=== PATIENT | female | born 1955 | race Caucasian/White ===

== ENCOUNTER 2017-11-26 15:58 | Emergency (ER) | payer MEDICAID, SELFPAY ==
[2017-11-26 16:01] VITALS: BP 117/60; PULSE 64; RESP 16; TEMP 36.5; O2SAT 96
--- NOTE | 2017-11-26 16:29 | DI.RPTCT_ITS ---
SYMPTOM/DIAGNOSIS: LEFT SIDED HEAD INJURY NONCONTRAST HEAD CT: Comparison is made with 29 Apr 2013. No intracranial hemorrhage or skull fracture is seen. The sinuses and mastoid air cells appear clear where visualized. The ventricles are normal in size. IMPRESSION: Negative head CT
--- NOTE | 2017-11-26 16:35 | ED.GENADUL_ITS ---
Disposition Clinical Impression: Forehead contusion, Mild concussion Disposition: HOME Condition: Improving Instructions: Concussion (ED), Contusion in Adults (ED) Additional Instructions: Return to the emergency department immediately for any new or worsening symptoms including severe persistent nausea vomiting, severe change in pain, any neurological changes that you notice. Otherwise rest over the next 2-3 days and slowly advance activity as tolerated. If not improving follow-up with your primary care provider for reassessment in the next 1-2 weeks. For pain control you may continue to use [id number] acetaminophen just take as directed on packaging. Prescriptions: Ondansetron [Ondansetron Odt] 4 mg PO Q8H PRN #12 tab.rapdis PRN Reason: Nausea Referrals: Padilla Polk [Primary Care Provider] - (Follow-up with your primary care provider if not improving over the next 1-2 weeks.) Medical Decision Making - Radiology Data Radiology results: report reviewed, image reviewed - Medical Decision Making Patient presenting to the emergency department status post fall with head injury 1 day ago and having persistent headache and nausea along with feeling off in her head . Patient does have a moderate contusion to the left forehead with abrasion and generalized tenderness to the area surrounding it including the zoroastrianism. Most area of pain is over contusion. Physical exam and neurological exam is otherwise unremarkable and no focal neurological deficits is noted. Given patient's symptoms I am concerned for possible intracranial bleed but feel more likely patient's symptoms may be consistent with mild concussion and forehead contusion. Plan to do CT imaging to rule out intracranial abnormality and pending results patient given acetaminophen and Zofran for symptoms. Head CT and radiologist report show no acute intracranial findings. Patient was reassessed and states complete resolution of nausea and only very minimal headache at this point. Given this I do feel that patient suffering from a mild concussion and forehead contusion. Patient was encouraged to continue to use acetaminophen given that this was beneficial for pain control along with a prescription for Zofran for nausea. Patient encouraged to return for worsening symptoms otherwise follow-up with her primary care provider for reassessment in the next 1-2 weeks if not improving. Patient encouraged to rest over the next 2 -3 days then advance activity as tolerated. After discussion of diagnosis and plan of care with patient patient agreed and stated no further needs, questions , or concerns at this time. History of Present Illness - General Chief complaint: HeadInjury Stated complaint: FALL/HEAD INJURY Time Seen by Provider: 11/26/17 16:29 Source: patient, RN notes reviewed Mode of arrival: ambulatory Limitations: no limitations - History of Present Illness Initial comments: Patient reports yesterday morning she she was working with her chickens and fell in the chicken coop striking the left side of her head fairly hard against a board. She states that she saw stars but denies loss of consciousness or amnesia. She does state that she has had a fairly substantial headache since this occurred and persistent nonrelenting nausea. She states that she feels off in her head and given that her symptoms have not improved she is presenting for evaluation. Onset/Timin -: days(s) - Related Data Omeprazole 20 mg PO PRN PRN 08/19/12 Fish Oil 1 tab PO DAILY 05/18/14 Multivitamin [Multi-Vitamin Daily] 1 each PO DAILY 05/18/14 Ondansetron [Ondansetron Odt] 4 mg PO Q8H PRN #12 tab.rapdis 11/26/17 Allergies Allergy/AdvReac Type Severity Reaction Status Date / Time No Known Allergies Allergy Unverified 05/31/15 05:17 Review of Systems Constitutional: malaise. denies: chills Eyes: denies: vision change Respiratory: no symptoms reported. denies: cough, shortness of breath Cardiovascular: denies: chest pain, palpitations Gastrointestinal: nausea. denies: abdominal pain, vomiting Genitourinary: denies: dysuria Musculoskeletal: denies: back pain Neurological: headache. denies: weakness, numbness, paresthesias, confusion, vertigo Past Medical History - Past Medical History Medical history: GERD tinnitus, endometriosis Surgical history: cholecystectomy Family history: cancer - Social History Smoking status: never smoker Alcohol use: none Drug use: none Living Situation: lives with family General Exam - General Limitations: no limitations General appearance: alert, in no apparent distress - Expanded Head Exam No standard instances Head exam: Present: abrasion (To left forehead), contusion (Left forehead), tenderness of temporal artery (Left side). Absent: hematoma, racoon eyes, ocasio's sign, CSF rhinorrhea, CSF otorrhea - Eye Eye exam: Present: normal apperance, PERRL, EOMI. Absent: scleral icterus, conjunctival injection, nystagmus, periorbital swelling, periorbital tenderness Pupils: Present: normal accommodation - ENT ENT exam: Present: normal exam, normal orophraynx, mucous membranes moist, TM's normal bilaterally, normal external ear exam - Neck Neck exam: Present: normal inspection, full ROM. Absent: tenderness - Respiratory Respiratory exam: Present: normal lung sounds bilaterally. Absent: respiratory distress, wheezes, rales, rhonchi, stridor - Cardiovascular Cardiovascular Exam: Present: regular rate, normal rhythm, normal heart sounds - Neurological Exam Neurological exam: Present: alert, oriented X3, CN II-XII intact, normal gait. Absent: altered, motor sensory deficit - Expanded Neurological Exam No standard instances Neurological exam: Absent: ataxia Patient oriented to: Present: person, place, time Speech: Present: fluid speech Cerebellar function: Finger to Nose: Normal Sensory exam: Upper Extremity Light Touch: Normal, Upper Extremity Temperature: Normal, UE 2 Point Discrimination: Normal, Lower Extremity Light Touch: Normal, Lower Extremity Temperature: Normal, LE 2 Point Discrimination: Normal Motor strength exam: RUE: (5), LUE: (5), RLE: (5), LLE: (5) Best Eye Response (Robby): (4) open spontaneously Best Motor Response (Robby): (6) obeys commands Best Verbal Response (Ryan): (5) oriented - Skin Skin exam: Present: warm, dry Course Vital Signs - 24 hr 11/26/17 16:01 Temperature 36.5 C Pulse 64 Respiratory 16 Rate Blood Pressure 117/60 Pulse Oximetry 96
[2017-11-26] MEDS: Acetaminophen 325 MG TAB 650 MG PO (17:20)
[2017-11-26] MEDS: Ondansetron O.D.T. 4 MG TABEF PO (17:20)
--- NOTE | 2017-11-26 17:25 | DI.VRAD_ITS ---
EXAM: CT Head Without Intravenous Contrast EXAM DATE/TIME: 11/26/2017 4:30 PM CLINICAL HISTORY: 62 years old, female; Injury or trauma; Injury history: Blunt injury to left side of head; Initial encounter; Blunt trauma (contusions or hematomas); Patient HX: Left-sided head injury TECHNIQUE: Axial computed tomography images of the head/brain without intravenous contrast. Coronal and sagittal reformatted images were created and reviewed. COMPARISON: CT - HEAD WITHOUT CONTRAST 2013-04-29 17:14 FINDINGS: Brain: Normal. No hemorrhage. No significant white matter disease. No edema. Ventricles: Normal. No ventriculomegaly. Bones/joints: Normal. No acute fracture. Sinuses: Normal as visualized. No acute sinusitis. Mastoid air cells: Normal as visualized. No mastoid effusion. Soft tissues: Normal. IMPRESSION: No acute intracranial findings are detected. Dictated and Authenticated by: Bret Caputo MD. Ordering:SHANTELL RG MD
[2017-11-26 17:49] VITALS: BP 135/75; PULSE 57; RESP 16; O2SAT 97
[2017-11-26 17:51] VITALS: BP 135/75; PULSE 57; RESP 16; O2SAT 97
== END 2017-11-26 17:51 | disposition home or self-care (01) ==
PROVIDERS: Emergency Provider Student in an Organized Health Care Education/Training Program; PCP Family Medicine
DX: S00.83XA Contusion of other part of head, initial encounter (principal); S06.0X0A Concussion without loss of consciousness, initial encounter; W01.198A Fall on same level from slipping, tripping and stumbling with subsequent striking against other object, initial encounter; Y92.72 Chicken coop as the place of occurrence of the external cause; R11.0 Nausea; R40.2412 Glasgow coma scale score 13-15, at arrival to emergency department
CPT/HCPCS: 99284; 70450

== ENCOUNTER 2018-03-01 13:08 | Emergency (ER) | payer MEDICAID, SELFPAY ==
[2018-03-01 13:22] VITALS: BP 127/60; PULSE 80; RESP 16; TEMP 36.8; O2SAT 97
--- NOTE | 2018-03-01 14:08 | W.ED.GENAD ---
Discharge Plan Disposition Patient Disposition: HOME Condition: Good Discharge Details Chief Complaint: Orthopedic Clinical Impression: Contusion of left leg Primary Care Provider: Padilla Polk ED Provider: Edd Jean Home Meds and New Rx's Prescriptions: No Action multivitamin [Daily Multi-Vitamin] 1 EACH tablet 1 ea PO DAILY RF: 0 FISH OIL 1 tab PO DAILY RF: 0 omeprazole 20 MG capsule,delayed release(DR/EC) 20 mg PO PRN PRN (Reason: Heartburn) RF: 0 ondansetron 4 MG tablet,disintegrating 4 mg PO Q8H PRN (Reason: Nausea) Qty: 12 RF: 0 Discharge Instructions Instructions: Contusion in Adults (ED) Referrals: [facility] Emergency Dept. [Outside] - Return if symptoms worsen Discharge Data Discharge Date/Time-TO BE ENTERED AT DEPARTURE: 03/01/18 14:48 Medical Decision Making Plan to medicate with Ibuprofen, x-ray left tib/fib, ankle, and foot. Apprised of normal x-rays. Advised ice and elevate. Return to pcp as planned, back to ED if symptoms worsen. Imaging Data Radiologic Study: Imaging: X-Ray My impression: No fracture. Radiologist's impression: LEFT FOOT: Three views were obtained. No fracture is seen. Note is made of osteophytes of plantar fascia attachment and Achilles insertion on the calcaneus. LEFT ANKLE: Three views were obtained. The ankle mortise appears well maintained. No fracture identified. LEFT LEG: Two views were obtained. No fracture is seen. LEFT FOOT: Three views were obtained. No fracture is seen. Note is made of osteophytes of plantar fascia attachment and Achilles insertion on the calcaneus. LEFT ANKLE: Three views were obtained. The ankle mortise appears well maintained. No fracture identified. LEFT LEG: Two views were obtained. No fracture is seen. HPI General Date/Time Provider Initiated Documentation: 03/01/18 13:22. Limitations to Documentation: no limitations. Information obtained by: patient. History of Present Illness 62 year old F presents to the emergency department with the chief complaint of leg pain, HPI Narrative: 62 y/o female here with c/o left lower leg pain. A week ago she fell between two boards in her barn. The boards compressed her lower leg on the sides. She noticed bruising anterior lower leg. She thought she was improving till yesterday. Yesterday she went for a walk and the pain worsened. C/O pain to lower left leg, ankle and heel of foot. Related Data Home Medications Medication Instructions Recorded Confirmed omeprazole 20 mg PO PRN PRN 08/19/12 11/26/17 Fish Oil 1 tab PO DAILY 05/18/14 11/26/17 multivitamin [Daily Multi-Vitamin] 1 ea PO DAILY 05/18/14 11/26/17 ondansetron 4 mg PO Q8H PRN #12 tab.rapdis 11/26/17 Previous Rx's Medication Instructions Recorded ondansetron 4 mg PO Q8H PRN #12 tab.rapdis 11/26/17 Allergies Allergy/AdvReac Type Severity Reaction Status Date / Time No Known Allergies Allergy Unverified 03/01/18 13:24 General Stated Complaint: Orthopedic KIET: 4 Review of Systems Musculoskeletal Comments: left lower leg pain PFSH Family History Other Personal history of malignant neoplasm Medical History GERD (gastroesophageal reflux disease) Social History Smoking/Tobacco Use Status: Never Surgical History Cholecystectomy Colonoscopy - MAC Dilation and curettage EGD - MAC Endometrial Ablation Ligation of fallopian tube Exam Const General: cooperative, healthy appearing, comfortable and no acute distress Nutritional Appearance: average body habitus Orientation: alert, awake and oriented x3 Extrem General: full ROM and normal capillary refill Left lower extremity: full ROM, normal capillary refill, knee Details: normal to inspection; no tenderness and lower leg Details: tenderness (with bruising to anterior lower left leg. ) Location: of the midshaft tibia, of the midshaft fibula, of the distal tibia and of the distal fibula; not of the posterior calf, not of the proximal tibia and not of the proximal fibula Ankle/foot/toe images: 1. Bruising to anterior leg. Tender to lower tib/fib 2. tender to the heal Course Vital Signs Temperature 36.8 C 03/01/18 13:22 Pulse 80 03/01/18 13:22 Respiratory Rate 16 03/01/18 13:22 Blood Pressure 127/60 03/01/18 13:22 Pulse Oximetry 97 03/01/18 13:22 Temperature 36.8 C 03/01/18 13:22 Temperature Source Temporal Artery Scan 03/01/18 13:22 Pulse 80 03/01/18 13:22 Respiratory Rate 16 03/01/18 13:22 Blood Pressure 127/60 03/01/18 13:22 Blood Pressure Position Sitting 03/01/18 13:22 Pulse Oximetry 97 03/01/18 13:22 Oxygen Delivery Method Room Air 03/01/18 13:22 Oxygen Flow Rate 0 03/01/18 13:22 Pain Level 8 03/01/18 13:22
--- NOTE | 2018-03-01 14:11 | ED.GENADUL_ITS ---
Discharge Plan Disposition Patient Disposition: HOME Condition: Good Discharge Details Chief Complaint: Orthopedic Clinical Impression: Contusion of left leg Primary Care Provider: Padilla Polk ED Provider: Edd Jean Home Meds and New Rx's Prescriptions: No Action multivitamin [Daily Multi-Vitamin] 1 EACH tablet 1 ea PO DAILY RF: 0 FISH OIL 1 tab PO DAILY RF: 0 omeprazole 20 MG capsule,delayed release(DR/EC) 20 mg PO PRN PRN (Reason: Heartburn) RF: 0 ondansetron 4 MG tablet,disintegrating 4 mg PO Q8H PRN (Reason: Nausea) Qty: 12 RF: 0 Discharge Instructions Instructions: Contusion in Adults (ED) Referrals: [facility] Emergency Dept. [Outside] - Return if symptoms worsen Discharge Data Discharge Date/Time-TO BE ENTERED AT DEPARTURE: 03/01/18 14:48 Medical Decision Making Plan to medicate with Ibuprofen, x-ray left tib/fib, ankle, and foot. Apprised of normal x-rays. Advised ice and elevate. Return to pcp as planned, back to ED if symptoms worsen. Imaging Data Radiologic Study: Imaging: X-Ray My impression: No fracture. Radiologist's impression: LEFT FOOT: Three views were obtained. No fracture is seen. Note is made of osteophytes of plantar fascia attachment and Achilles insertion on the calcaneus. LEFT ANKLE: Three views were obtained. The ankle mortise appears well maintained. No fracture identified. LEFT LEG: Two views were obtained. No fracture is seen. LEFT FOOT: Three views were obtained. No fracture is seen. Note is made of osteophytes of plantar fascia attachment and Achilles insertion on the calcaneus. LEFT ANKLE: Three views were obtained. The ankle mortise appears well maintained. No fracture identified. LEFT LEG: Two views were obtained. No fracture is seen. HPI General Date/Time Provider Initiated Documentation: 03/01/18 13:22 . Limitations to Documentation: no limitations . Information obtained by: patient . History of Present Illness 62 year old F presents to the emergency department with the chief complaint of leg pain, HPI Narrative: 62 y/o female here with c/o left lower leg pain. A week ago she fell between two boards in her barn. The boards compressed her lower leg on the sides. She noticed bruising anterior lower leg. She thought she was improving till yesterday. Yesterday she went for a walk and the pain worsened. C/O pain to lower left leg, ankle and heel of foot. Related Data Home Medications Medication Instructions Recorded Confirmed omeprazole 20 mg PO PRN PRN 08/19/12 11/26/17 Fish Oil 1 tab PO DAILY 05/18/14 11/26/17 multivitamin [Daily Multi-Vitamin] 1 ea PO DAILY 05/18/14 11/26/17 ondansetron 4 mg PO Q8H PRN #12 tab.rapdis 11/26/17 Previous Rx's Medication Instructions Recorded ondansetron 4 mg PO Q8H PRN #12 tab.rapdis 11/26/17 Allergies Allergy/AdvReac Type Severity Reaction Status Date / Time No Known Allergies Allergy Unverified 03/01/18 13:24 General Stated Complaint: Orthopedic KIET: 4 Review of Systems Musculoskeletal Comments: left lower leg pain PFSH Family History Other Personal history of malignant neoplasm Medical History GERD (gastroesophageal reflux disease) Social History Smoking/Tobacco Use Status: Never Surgical History Cholecystectomy Colonoscopy - MAC Dilation and curettage EGD - MAC Endometrial Ablation Ligation of fallopian tube Exam Const General: cooperative, healthy appearing, comfortable and no acute distress Nutritional Appearance: average body habitus Orientation: alert, awake and oriented x3 Extrem General: full ROM and normal capillary refill Left lower extremity: full ROM, normal capillary refill, knee Details: normal to inspection; no tenderness and lower leg Details: tenderness (with bruising to anterior lower left leg. ) Location: of the midshaft tibia, of the midshaft fibula, of the distal tibia and of the distal fibula; not of the posterior calf , not of the proximal tibia and not of the proximal fibula Ankle/foot/toe images: 2 1. Bruising to anterior leg. Tender to lower tib/fib 2. tender to the heal Course Vital Signs Temperature 36.8 C 03/01/18 13:22 Pulse 80 03/01/18 13:22 Respiratory Rate 16 03/01/18 13:22 Blood Pressure 127/60 03/01/18 13:22 Pulse Oximetry 97 03/01/18 13:22 Temperature 36.8 C 03/01/18 13:22 Temperature Source Temporal Artery Scan 03/01/18 13:22 Pulse 80 03/01/18 13:22 Respiratory Rate 16 03/01/18 13:22 Blood Pressure 127/60 03/01/18 13:22 Blood Pressure Position Sitting 03/01/18 13:22 Pulse Oximetry 97 03/01/18 13:22 Oxygen Delivery Method Room Air 03/01/18 13:22 Oxygen Flow Rate 0 03/01/18 13:22 Pain Level 8 03/01/18 13:22
[2018-03-01] MEDS: Ibuprofen 800 MG TAB PO (14:20)
--- NOTE | 2018-03-01 14:35 | DI.RAD_ITS ---
SYMPTOMS/DIAGNOSIS: FALL BETWEEN TWO BOARDS, PAIN ANTERIOR AND DISTAL AND HEEL PAIN LEFT FOOT: Three views were obtained. No fracture is seen. Note is made of osteophytes of plantar fascia attachment and Achilles insertion on the calcaneus. LEFT ANKLE: Three views were obtained. The ankle mortise appears well maintained. No fracture identified. LEFT LEG: Two views were obtained. No fracture is seen.
== END 2018-03-01 14:48 | disposition home or self-care (01) ==
PROVIDERS: Emergency Provider Nurse Practitioner Family; PCP Family Medicine
DX: S80.12XA Contusion of left lower leg, initial encounter (principal); W23.1XXA Caught, crushed, jammed, or pinched between stationary objects, initial encounter
CPT/HCPCS: 99283; 73590; 73610; 73630; 99282

== ENCOUNTER 2018-04-12 09:05 | Emergency (ER) | payer MEDICAID, SELFPAY ==
[2018-04-12] VITALS (25 sets, daily range): BP systolic 124–140; BP diastolic 57–77; PULSE 57–64; RESP 16; TEMP 36.5; O2SAT 97–100
--- NOTE | 2018-04-12 09:46 | DI.CT_ITS ---
SYMPTOMS/DIAGNOSIS: ABD PAIN CT OF THE ABDOMEN AND PELVIS: Comparison is made with [id number]. Images were performed from the lung bases through the ischial tuberosities after IV and without oral contrast. The lung bases are clear. The patient is status post cholecystectomy. The liver, spleen, pancreas, kidneys and adrenals appear normal. The bladder, uterus and ovaries are unremarkable. There are bilateral tubal ligation clips. There is no bowel dilatation or inflammatory change. The appendix appears normal. There is a moderate quantity of stool. Degenerative disc changes are seen at L 4 - 5. There is a tiny umbilical hernia containing fat. IMPRESSION: No acute abnormality.
--- NOTE | 2018-04-12 10:51 | ED.GENADUL_ITS ---
Discharge Plan Disposition Patient Disposition: HOME Condition: Stable Discharge Details Chief Complaint: Abd Prob Clinical Impression: Abdominal pain Primary Care Provider: Padilla Polk ED Provider: Nuha Chen Home Meds and New Rx's Prescriptions: New lidocaine [Lidoderm] 5 % adhesive patch,medicated 1 patch TP DAILY Qty: 15 RF: 0 Continued multivitamin [Daily Multi-Vitamin] 1 EACH tablet 1 ea PO DAILY RF: 0 FISH OIL 1 tab PO DAILY RF: 0 omeprazole 20 MG capsule,delayed release(DR/EC) 20 mg PO PRN PRN (Reason: Heartburn) RF: 0 ondansetron 4 MG tablet,disintegrating 4 mg PO Q8H PRN (Reason: Nausea) Qty: 12 RF: 0 aspirin [Aspirin Childrens] 81 mg Tablet,Chewable RF: 0 Discharge Instructions Instructions: Muscle Strain (ED), Abdominal Pain (ED) Additional Instructions: Please return immediately to the emergency department if you develop any new or worsening symptoms or if you become otherwise concerned. It is extremely important that you make an appointment to be seen by your primary care doctor within the next 48 hours and follow-up for this visit. Referrals: Padilla Polk [Primary Care Provider] - Discharge Data Discharge Date/Time-TO BE ENTERED AT DEPARTURE: 04/12/18 15:43 Medical Decision Making Anette Rivers is a 62 y/o woman with h/o GERD presenting to the emergency department with constant abdominal pain associated with mild constipation since pushing a bale of hay with her back. On exam Pt is well and non-toxic appearing, there is mild-mod focal TTP of the epigastric region without peritoneal signs. Concern for likely abdominal wall muscle strain, less likely other intra- abdominal process. Very low suspicion for ACS, will send tropx1 given constant pain. Exam/hx not c/w PE, acute aortic pathology, infectious process, pulmonary etiology. Plan for EKG, screening labs, CT a/p. Pt decling pain medication at this time. CT negative per radiology. EKG, labs okay. Plan for lidoderm patch, muscle rest. Lengthy discussion with Pt re: RTED precautions and importance of outpt f/u with PCP. Pt is amenable to the plan. Medical Records Medical records reviewed: Yes I reviewed the patient's medical records. Imaging Data Radiologic Study: Attestation: I personally reviewed and interpreted this imaging study as follows: Radiologist's impression: CT OF THE ABDOMEN AND PELVIS: Comparison is made with [id number]. Images were performed from the lung bases through the ischial tuberosities after IV and without oral contrast. The lung bases are clear. The patient is status post cholecystectomy. The liver, spleen, pancreas, kidneys and adrenals appear normal. The bladder, uterus and ovaries are unremarkable. There are bilateral tubal ligation clips. There is no bowel dilatation or inflammatory change. The appendix appears normal. There is a moderate quantity of stool. Degenerative disc changes are seen at L 4 - 5. There is a tiny umbilical hernia containing fat. IMPRESSION: No acute abnormality. Lab Data Lab results reviewed: Yes I reviewed the patient's lab results. Laboratory Tests Range/Units 04/12/18 04/12/18 04/12/18 10:38 10:38 10:38 WBC (4.4-10.8) k/cumm 4.89 RBC (4.00-5.20) m/cumm 5.46 H Hgb (12.0-15.5) g/dL 16.0 H Hct (36.0-46.0) % 47.8 H MCV (80-95) fL 87.5 MCH (27.0-33.0) pg 29.3 MCHC (32.0-36.0) g/dL 33.5 RDW (11.7-14.6) % 13.0 Plt Count (130-400) x1000/uL 201 MPV (8.0-11.0) fL 10.0 Immature Gran % 0.2 Neutrophils % 46.9 Lymphocytes % 41.3 Monocytes % 5.1 Eosinophils % 5.1 Basophils % 1.4 Absolute Neutrophils (1.2-6.7) k/cumm 2.29 Absolute Lymphocytes (1.2-3.4) k/cumm 2.02 Absolute Monocytes (0.11-0.7) k/cumm 0.25 Absolute Eosinophils (0.0-0.7) k/cumm 0.25 Absolute Basophils (0.0-0.2) k/cumm 0.07 Sodium (136-145) mmol/L 143 Potassium (3.5-5.1) mmol/L 4.4 Chloride (98-107) mmol/L 106 Carbon Dioxide (21.0-32.0) mmol/L 29.7 Anion Gap (3-11) mmol/L 7.3 BUN (7-18) mg/dL 17 Creatinine (0.55-1.02) mg/dL 0.89 Estimated GFR/1.73 m2 (mL/min/1.73m2) >= 60.00 Glucose (70-100) mg/dL 93 Calcium (8.5-10.1) mg/dL 9.6 Total Bilirubin (0.2-1.0) mg/dL 0.5 AST (15-37) U/L 36 ALT (12-78) U/L 84 H Alkaline Phosphatase (46-116) U/L 131 H Troponin I (0.00-0.06) ng/mL < 0.02 Total Protein (6.4-8.2) g/dL 7.0 Albumin (3.4-5.0) g/dL 3.6 Urine Color (Yellow) Urine Clarity Urine pH (5-8) Ur Specific [place] (1.005-1.025) Urine Protein (Negative) mg/dL Urine Ketones (Negative) mg/dL Urine Blood (Negative) Urine Nitrite (Negative) Urine Bilirubin (Negative) Urine Urobilinogen (Up TO 0.2) EU/dL Ur Leukocyte Esterase (Negative) Urine Glucose (Negative) mg/dL Range/Units 04/12/18 12:39 WBC (4.4-10.8) k/cumm RBC (4.00-5.20) m/cumm Hgb (12.0-15.5) g/dL Hct (36.0-46.0) % MCV (80-95) fL MCH (27.0-33.0) pg MCHC (32.0-36.0) g/dL RDW (11.7-14.6) % Plt Count (130-400) x1000/uL MPV (8.0-11.0) fL Immature Gran % Neutrophils % Lymphocytes % Monocytes % Eosinophils % Basophils % Absolute Neutrophils (1.2-6.7) k/cumm Absolute Lymphocytes (1.2-3.4) k/cumm Absolute Monocytes (0.11-0.7) k/cumm Absolute Eosinophils (0.0-0.7) k/cumm Absolute Basophils (0.0-0.2) k/cumm Sodium (136-145) mmol/L Potassium (3.5-5.1) mmol/L Chloride (98-107) mmol/L Carbon Dioxide (21.0-32.0) mmol/L Anion Gap (3-11) mmol/L BUN (7-18) mg/dL Creatinine (0.55-1.02) mg/dL Estimated GFR/1.73 m2 (mL/min/1.73m2) Glucose (70-100) mg/dL Calcium (8.5-10.1) mg/dL Total Bilirubin (0.2-1.0) mg/dL AST (15-37) U/L ALT (12-78) U/L Alkaline Phosphatase (46-116) U/L Troponin I (0.00-0.06) ng/mL Total Protein (6.4-8.2) g/dL Albumin (3.4-5.0) g/dL Urine Color (Yellow) Yellow Urine Clarity Clear Urine pH (5-8) 7.5 Ur Specific [place] (1.005-1.025) 1.010 Urine Protein (Negative) mg/dL Negative Urine Ketones (Negative) mg/dL Negative Urine Blood (Negative) Negative Urine Nitrite (Negative) Negative Urine Bilirubin (Negative) Negative Urine Urobilinogen (Up TO 0.2) EU/dL 0.2 Ur Leukocyte Esterase (Negative) Negative Urine Glucose (Negative) mg/dL Negative ECG Data Attestation: I personally reviewed and interpreted this ECG (s) as follows: Interpretation: EKG shows sinus bradycardia at 57 with normal axis, no acute ischemic changes, nondiagnostic EKG HPI General Mode of arrival: ambulatory . Date/Time Provider Initiated Documentation: 04/12/18 09:44 . Limitations to Documentation: no limitations . Information obtained by: patient, RN notes reviewed and old records reviewed . HPI Narrative: Anette Rivers is a 62 y/o woman with h/o GERD presenting to the emergency department with abdominal pain. Pt reports that on 04/06 she was pushng a bale hay with her back while standing. When she arched her back to push, she felt sudden sharp pain in her upper abdomen. Pt reports that she has had continued upper abdominal pain since that time, has never resolved. Pain is worse with changing position or with taking a deep breath. Non-exertional, does not radiate. Has not changed in quality, location, or severity since initial onset. Pt also reports that feels more constipated than usual since the pain started, but has continued to have regular BMs, with last BM today. She denies any other pain, n/v, SOB, cough, fever, n/t, weakness. Has been eating and drinking as usual. No recent travel. Related Data Home Medications Medication Instructions Recorded Confirmed omeprazole 20 mg PO PRN PRN 08/19/12 11/26/17 Fish Oil 1 tab PO DAILY 05/18/14 11/26/17 multivitamin [Daily Multi-Vitamin] 1 ea PO DAILY 05/18/14 11/26/17 ondansetron 4 mg PO Q8H PRN #12 tab.rapdis 11/26/17 aspirin [Aspirin Childrens] 04/12/18 lidocaine [Lidoderm] 1 patch TP DAILY #15 each 04/12/18 Previous Rx's Medication Instructions Recorded ondansetron 4 mg PO Q8H PRN #12 tab.rapdis 11/26/17 lidocaine [Lidoderm] 1 patch TP DAILY #15 each 04/12/18 Allergies Allergy/AdvReac Type Severity Reaction Status Date / Time No Known Allergies Allergy Unverified 03/01/18 13:24 General Stated Complaint: Abd Prob KIET: 3 Review of Systems Review of Systems Constitutional: denies fevers Eyes: denies eye pain ENT: denies facial pain, dental pain, sore throat Cardiovascular: denies chest pain, edema Respiratory: denies SOB, cough GI: denies vomiting, diarrhea, reports abdominal pain, constipation : denies flank pain MSK: denies back pain, neck pain, arthralgias, myalgias Skin: denies rash Neuro: denies headaches, weakness, n/t PFSH Medical History GERD (gastroesophageal reflux disease) Surgical History Cholecystectomy Colonoscopy - MAC Dilation and curettage EGD - MAC Endometrial Ablation Ligation of fallopian tube Family History Other Personal history of malignant neoplasm Social History Smoking/Tobacco Use Status: Never Exam Narrative Exam Narrative: Constitutional: well and [id number], pleasant, conversing normally HENT: head atraumatic, normocephalic normal inspection, mucous membranes moist Eyes: conjunctiva normal, sclera normal, pupils 3mm b/l Neck: no stridor, normal ROM, trachea midline Chest: normal inspection Resp: normal work of breathing, LCTAB Cardio: normal rate, normal rhythm, no murmur appreciated GI: abdomen soft, non-distended, mild TTP of the epigastric area without other TTP, no rebound or guarding, pain is worse when performing abdominal crunch Back: normal inspection, no rash Skin: warm, dry, normal color, no rash Neuro: alert, not altered, grossly non-focal, normal tone Ext: no edema Psych: normal mood, normal affect, normal behavior Course Vital Signs Temperature 36.5 C 04/12/18 09:11 Pulse 64 04/12/18 09:11 Respiratory Rate 16 04/12/18 09:11 Blood Pressure 130/64 04/12/18 09:11 Pulse Oximetry 100 04/12/18 09:11 Temperature 36.5 C 04/12/18 09:11 Temperature Source Temporal Artery Scan 04/12/18 09:11 Pulse 64 04/12/18 09:11 Respiratory Rate 16 04/12/18 09:11 Blood Pressure 130/64 04/12/18 09:11 Blood Pressure Position Sitting 04/12/18 09:11 Pulse Oximetry 100 04/12/18 09:11 Oxygen Delivery Method Room Air 04/12/18 09:11 Oxygen Flow Rate 0 04/12/18 09:11 Pain Level 6 04/12/18 09:11
[2018-04-12 10:53] LABS: Abs Immature Grans 0.01 k/cumm (0.0-0.09); Absolute Basophil Count 0.07 k/cumm (0.0-0.2); Absolute Eosinophil Count 0.25 k/cumm (0.0-0.7); Absolute Lymphocyte Count 2.02 k/cumm (1.2-3.4); Absolute Monocyte Count 0.25 k/cumm (0.11-0.7); Absolute Neutrophil Count 2.29 k/cumm (1.2-6.7); Basophils % 1.4; Eosinophils % 5.1; HCT 47.8 % (36.0-46.0); Immature Grans % 0.2; Lymphocytes % 41.3; Mean Corp. HGB Concentration 33.5 g/dL (32.0-36.0); Mean Corpuscular Hemoglobin 29.3 pg (27.0-33.0); Mean Corpuscular Volume 87.5 fL (80-95); Monocytes % 5.1; Neutrophils % 46.9; Platelet Count 201 x1000/uL (130-400); RBC 5.46 m/cumm (4.00-5.20); White Blood Cell Count 4.89 k/cumm (4.4-10.8)
[2018-04-12 11:07] LABS: ALT 84 U/L (12-78); AST 36 U/L (15-37); Albumin 3.6 g/dL (3.4-5.0); Alkaline Phosphatase 131 U/L (46-116); Anion Gap 7.3 mmol/L (3-11); BUN 17 mg/dL (7-18); Bilirubin, Total 0.5 mg/dL (0.2-1.0); CO2 29.7 mmol/L (21.0-32.0); CREATININE 0.89 mg/dL (0.55-1.02); Calcium 9.6 mg/dL (8.5-10.1); Chloride 106 mmol/L (98-107); Glucose 93 mg/dL (70-100); Potassium 4.4 mmol/L (3.5-5.1); Sodium 143 mmol/L (136-145)
[2018-04-12 11:09] LABS: Troponin I < 0.02 ng/mL (0.00-0.06)
[2018-04-12] MEDS: Omnipaque 350 MG/ML 100 ML BTL IJ (11:43)
--- NOTE | 2018-04-12 12:13 | NUR.NOTE ---
Is in no distress, awaiting dispo.
[2018-04-12 12:49] LABS: Bilirubin Negative (Negative); Blood Negative (Negative); Clarity Clear; Glucose Negative (Negative); Ketones Negative (Negative); Leukocyte Esterase Negative (Negative); Nitrite Negative (Negative); Urobilinogen 0.2 EU/dL (Up TO 0.2); pH 7.5 (5-8)
[2018-04-12] MEDS: Lidocaine 5% Patch 1 PATCH TP (13:33)
== END 2018-04-12 15:43 | disposition home or self-care (01) ==
PROVIDERS: Emergency Provider Student in an Organized Health Care Education/Training Program; PCP Family Medicine
DX: R10.9 Unspecified abdominal pain (principal); R00.1 Bradycardia, unspecified; Z98.51 Tubal ligation status; Z90.49 Acquired absence of other specified parts of digestive tract
CPT/HCPCS: 36415; 80053; 93005; 99285; 74177; 81003; 84484; 85025; 93010; J3490

== ENCOUNTER 2018-06-02 06:28 | Day surgery (SDC) | payer MEDICAID, SELFPAY ==
[2018-06-02] VITALS (7 sets, daily range): BP systolic 115–133; BP diastolic 59–70; PULSE 53–63; RESP 12–18; TEMP 35.6–36.6; O2SAT 98–100
--- NOTE | 2018-06-02 06:21 | HPE_ITS ---
Date of service: 06/02/18 Time of Service: 07:30 Assessment and Plan (1) Umbilical hernia: Current visit: No Status: Acute A\\ Small umbilical Hernia P\\ Open repair with/without mesh depending on size. Risks, benefits, complications of the procedure were reviewed with the patient. Complications include but are not limited to bleeding, pain, recurrence, injury to underlying bowel and adverse reaction to the medication. Questions were entertained and answered to her satisfaction and she wished to proceed. No guarantees were given or implied. Qualifiers: Obstruction and gangrene presence: without obstruction or gangrene Qualified Code(s): K42.9 - Umbilical hernia without obstruction or gangrene History of Present Illness Chief Complaint: umbilical hernia Narrative: Mrs. Rivers is a pleasant 62-year-old female who was seen in the emergency department [facility] for abdominal pain. Ms. Rivers states that they have quite a few animals and she was moving a round bale off of her pickup truck when she felt something give. She tried just taken Tylenol and ibuprofen but the pain consistently got worse until she went to the emergency department. She did have a CAT scan which showed a small umbilical hernia with some fat in it. No inguinal hernias were noted no other abnormalities were identified. Ms. Edwards does also have some chronic right upper quadrant pain along her cholecystectomy scar. She underwent a upper endoscopy as well as a colonoscopy in 2014 due to this pain. Her EGD showed some mild inflammation. Her colonoscopy was completely normal. She still has pain around that scar mostly when she does lifting. There have been no changes in her health since she was last seen in the office on 04/27/18. Review of Systems Constitutional Denies fever(s) Eyes Denies change in vision Cardiovascular Denies chest pain, Denies chest pain at rest, Denies irregular heart rhythm, Denies palpitations, Denies dyspnea and Denies dyspnea on exertion Respiratory Denies cough, Denies dyspnea and Denies dyspnea on exertion Gastrointestinal Reports as per HPI and Reports abdominal pain Endocrine Denies palpitations [facility] Medical History GERD (gastroesophageal reflux disease) Surgical History Cholecystectomy Colonoscopy - MAC (~2014) Dilation and curettage EGD - MAC (~2014) Endometrial Ablation Ligation of fallopian tube Family History Other Personal history of malignant neoplasm Social History Smoking and Tabacco status: Never alcohol intake: current alcohol intake frequency: holidays/special occasions only substance use type: does not use Meds Home Medications Medication Instructions Recorded Confirmed Type omeprazole 20 mg PO HS 08/19/12 05/28/18 History Fish Oil 1 tab PO HS 05/18/14 05/28/18 History multivitamin [Daily Multi-Vitamin] 1 ea PO HS 05/18/14 05/28/18 History ondansetron 4 mg PO Q8H PRN #12 tab.rapdis 11/26/17 05/28/18 Rx aspirin [Aspirin Childrens] 1 tab PO HS 04/12/18 05/28/18 History lidocaine [Lidoderm] 1 patch TP DAILY PRN 05/28/18 05/28/18 History Allergies Allergy/AdvReac Type Severity Reaction Status Date / Time cyclobenzaprine AdvReac Intermediate excessive Verified 04/27/18 11:07 sedatio Exam Const General: cooperative, comfortable and no acute distress Orientation: alert and oriented x3 Eyes Pupils: PERRL Resp Effort & Inspection: normal respiratory effort Auscultation: clear to auscultation bilaterally Cardio Rate: regular rate Rhythm: regular rhythm Heart Sounds: no gallops, no murmurs and no rubs GI Inspection: normal to inspection Palpation: soft, no hepatosplenomegaly and hernia umbilical
--- NOTE | 2018-06-02 06:25 | W.PM.OP ---
Date of service: 06/02/18 Time of Service: 07:30 Operative Note DATE OF PROCEDURE: 06/02/18 PRE-OP DIAGNOSIS: umbilical hernia POST-OP DIAGNOSIS: same PROCEDURE: Primary Umbilical hernia repair SURGEON: Desi Dean TEACHING ASSOCIATE: Brian Munguia ANESTHESIA: other (Bilateral rectus block, General with LMA) ESTIMATED BLOOD LOSS: 10 PATHOLOGY: none sent COMPLICATIONS: None Patient was transported to: same day Patient's condition: stable Implants: None Indications: Ms. Rivers is a pleasant 62 year old female who was seen in the office with some chronic RUQ pain along her cholecystectomy scar. CT scan was done which showed a small fat containing umbilical hernia. No hernias were identified in the RUQ area. Risks, benefits and complications were reviewed and the patient wished to proceed. No guarantees were given or implied. Procedure Description: After informed consent was obtained the patient was taken to the operating room and placed in a supine position. Monitors and SCDs were applied and a timeout was done. The patient's name, date of , procedure type, procedure site, allergies to medications, preoperative antibiotic, and DVT prophylaxis were all reviewed. Fire risk was assessed. Next anesthesia did a bilateral rectus block under ultrasound guidance. Please see their separate dictation. Once anesthesia was done the abdomen was prepped and draped in a sterile surgical fashion. 0.5% Bupivacaine was injected into the dermis just under the umbilicus. An incision was made with a 15 blade under the umbilicus. Dissection was done with cautery through the subcutaneous tissues and through the umbilical stalk down to the fascia. The hernia defect was identified and measured at 0.5 cm. The hernia defect was closed with a figure of eight 0 Vicryl. The wound was irrigated with some normal saline. No bleeding was identified. The umbilical stalk was sutured back down to the fascia with 0 Vicryl. The subcutaneous tissue was re-approximated with 3-0 vicryl. The dermis was re-approximated with a running 4-0 Vicryl. The skin was cleaned and dried and skin affix was applied. The patient was woken up and taken back to PACU in stable condition. There were no immediate complications. Sponge, instrument and needle counts were correct at the end of the case x2.
--- NOTE | 2018-06-02 06:29 | ROE_ITS ---
Date of service: 06/02/18 Time of Service: 07:30 Operative Note DATE OF PROCEDURE: 06/02/18 PRE-OP DIAGNOSIS: umbilical hernia POST-OP DIAGNOSIS: same PROCEDURE: Primary Umbilical hernia repair SURGEON: Desi Dean [employer] OPERATIONS SPECIALIST: Brian Munguia ANESTHESIA: other (Bilateral rectus block, General with LMA) ESTIMATED BLOOD LOSS: 10 PATHOLOGY: none sent COMPLICATIONS: None Patient was transported to: same day Patient's condition: stable Implants: None Indications: Ms. Rivers is a pleasant 62 year old female who was seen in the off ice with some chronic RUQ pain along her cholecystectomy scar. CT scan was done which showed a small fat containing umbilical hernia. No hernias were identified in the RUQ area. Risks, benefits and complications were reviewed and the patient wished to proceed. No guarantees were given or implied. Procedure Description: After informed consent was obtained the patient was taken to the operating room and placed in a supine position. Monitors and SCDs were applied and a timeout was done. The patient's name, date of , procedure type, procedure site, allergies to medications, preoperative antibiotic, and DVT prophylaxis were all reviewed. Fire risk was assessed. Next anesthesia did a bilateral rectus block under ultrasound guidance. Please see their separate dictation. Once anesthesia was done the abdomen was prepped and draped in a sterile surgical fashion. 0.5% Bupivacaine was injected into the dermis just under the umbilicus. An incision was made with a 15 blade under the umbilicus. Dissection was done with cautery through the subcutaneous tissues and through the umbilical stalk down to the fascia. The hernia defect was identified and measured at 0.5 cm. The hernia defect was closed with a figure of eight 0 Vicryl. The wound was irrigated with some normal saline. No bleeding was identified. The umbilical stalk was sutured back down to the fascia with 0 Vicryl. The subcutaneous tissue was re-approximated with 3-0 vicryl. The dermis was re-approximated with a running 4-0 Vicryl. The skin was cleaned and dried and skin affix was applied. The patient was woken up and taken back to PACU in stable condition. There were no immediate complications. Sponge, instrument and needle counts were correct at the end of the case x2.
--- NOTE | 2018-06-02 06:29 | W.PM.DSUDISC ---
Discharge Plan Disposition Patient Disposition: HOME Condition: Good Discharge Details Reason For Visit: Umbilical hernia Attending Provider: Desi Dean Primary Care Provider: Padilla Polk Home Meds and New Rx's Prescriptions: New acetaminophen 325 mg tablet 650 mg PO QID PRN (Reason: pain) Qty: 20 RF: 0 ibuprofen 600 mg tablet 600 mg PO QID PRN (Reason: pain) Qty: 20 RF: 0 Continued multivitamin [Daily Multi-Vitamin] 1 EACH tablet 1 ea PO HS RF: 0 FISH OIL 1 tab PO HS RF: 0 omeprazole 20 MG capsule,delayed release(DR/EC) 20 mg PO HS RF: 0 ondansetron 4 MG tablet,disintegrating 4 mg PO Q8H PRN (Reason: Nausea) Qty: 12 RF: 0 aspirin [Aspirin Childrens] 81 mg Tablet,Chewable 1 tab PO HS RF: 0 lidocaine [Lidoderm] 5 % adhesive patch,medicated 1 patch TP DAILY PRNRF: 0 Discharge Instructions Instructions: Ventral Hernia Repair (DC) Additional Instructions: Activity at Home after surgery: 1. Make sure you walk outside at least 4 times per day 2. You should be able to climb a flight of stairs 3. No driving while in pain or taking pain medications 4. No strenuous activity or heavy lifting for 4 weeks Diet, Nutrition, & wound healin. Avoid alcohol until after you are recovered from your surgery 2. Make sure to eat plenty of lean protein (meat, fish, eggs, cottage cheese, beans) 3. Eat a variety of fruits and vegetables. Eat plenty of high fiber foods to avoid constipation. 4. Drink plenty of liquids to stay hydrated and avoid constipation Pain Medications: 1. Alternate Tylenol 650 mg and Ibuprofen 600 mg every 3 hours 2. If a narcotic has been prescribed take as directed only for breakthrough pain For Constipation: 1. Take Milk of Magnesia or MiraLax as needed for constipation Other: 1. You may shower daily. Do not scrub the incisions 2. Do not soak the incisions for 1 week 3. You may alternate ice and heat as needed for pain and swelling Wound Care: 1. Keep the incisions clean and dry Please call our office if you develop: 1. Fevers >101.5 2. Nausea or Vomiting 3. Worsening pain 4. Redness and thick discharge from the wounds If after hours please call the Hospital at and ask to speak to the on-call surgeon Referrals: Desi Dean MD [ [facility] STAFF PHYSICIAN] - 06/22/18 1:30 pm Activity:: No lifting, pushing or pulling >20 lb x 4 weeks Diet:: As Tolerated Discharge Orders Discharge Orders: Discharge Order (Routine); Ordered 06/02/18 Ordered By: Desi Dean DS: Diagnosis Discharge Diagnosis (1) Umbilical hernia: Status: Acute (2) S/P ventral herniorrhaphy: Status: Acute
--- NOTE | 2018-06-02 06:32 | PDOC.DSDIS_ITS ---
Discharge Plan Disposition Patient Disposition: HOME Condition: Good Discharge Details Reason For Visit: Umbilical hernia Attending Provider: Desi Dean Primary Care Provider: Padilla Polk Home Meds and New Rx's Prescriptions: New acetaminophen 325 mg tablet 650 mg PO QID PRN (Reason: pain) Qty: 20 RF: 0 ibuprofen 600 mg tablet 600 mg PO QID PRN (Reason: pain) Qty: 20 RF: 0 Continued multivitamin [Daily Multi-Vitamin] 1 EACH tablet 1 ea PO HS RF: 0 FISH OIL 1 tab PO HS RF: 0 omeprazole 20 MG capsule,delayed release(DR/EC) 20 mg PO HS RF: 0 ondansetron 4 MG tablet,disintegrating 4 mg PO Q8H PRN (Reason: Nausea) Qty: 12 RF: 0 aspirin [Aspirin Childrens] 81 mg Tablet,Chewable 1 tab PO HS RF: 0 lidocaine [Lidoderm] 5 % adhesive patch,medicated 1 patch TP DAILY PRNRF: 0 Discharge Instructions Instructions: Ventral Hernia Repair (DC) Additional Instructions: Activity at Home after surgery: 1. Make sure you walk outside at least 4 times per day 2. You should be able to climb a flight of stairs 3. No driving while in pain or taking pain medications 4. No strenuous activity or heavy lifting for 4 weeks Diet, Nutrition, & wound healin. Avoid alcohol until after you are recovered from your surgery 2. Make sure to eat plenty of lean protein (meat, fish, eggs, cottage cheese, beans) 3. Eat a variety of fruits and vegetables. Eat plenty of high fiber foods to avoid constipation. 4. Drink plenty of liquids to stay hydrated and avoid constipation Pain Medications: 1. Alternate Tylenol 650 mg and Ibuprofen 600 mg every 3 hours 2. If a narcotic has been prescribed take as directed only for breakthrough pain For Constipation: 1. Take Milk of Magnesia or MiraLax as needed for constipation Other: 1. You may shower daily. Do not scrub the incisions 2. Do not soak the incisions for 1 week 3. You may alternate ice and heat as needed for pain and swelling Wound Care: 1. Keep the incisions clean and dry Please call our office if you develop: 1. Fevers >101.5 2. Nausea or Vomiting 3. Worsening pain 4. Redness and thick discharge from the wounds If after hours please call the Hospital at and ask to speak to the on-call surgeon Referrals: Desi Dean MD [ [facility] STAFF PHYSICIAN] - 06/22/18 1:30 pm Activity:: No lifting, pushing or pulling >20 lb x 4 weeks Diet:: As Tolerated Discharge Orders Discharge Orders: Discharge Order (Routine); Ordered 06/02/18 Ordered By: Desi Dean DS: Diagnosis Discharge Diagnosis (1) Umbilical hernia: Status: Acute (2) S/P ventral herniorrhaphy: Status: Acute
[2018-06-02] MEDS: Lactated Ringers 1,000 ML 80 ML IV (07:00)
[2018-06-02] MEDS: Bupivacaine 0.5% Pres-Free 30 ML VIAL ×2 (07:33→07:53)
== END 2018-06-02 10:25 | disposition home or self-care (01) ==
PROVIDERS: PCP Family Medicine; Visit Provider Surgery
PROC: (CPT 49585; principal; 2018-06-02 07:30)
DX: K42.9 Umbilical hernia without obstruction or gangrene (principal); K21.9 Gastro-esophageal reflux disease without esophagitis
CPT/HCPCS: 49585; 76942; NC; J0690; J1100; J1885; J2405

== ENCOUNTER 2018-07-06 12:50 | Outpatient (CLI) | payer MEDICAID, SELFPAY ==
--- NOTE | 2018-07-06 12:00 | DI.MRI_ITS ---
SYMPTOMS/DIAGNOSIS: LUMBAGO WITH SCIATICA, M54.42, LEFT LEG WEAKNESS LUMBOSACRAL SPINE MRI: MRI examination of the lumbosacral spine was performed according to the usual protocol. No significant bony signal abnormality seen. Conus medullaris appears intact. Neural foramina appear fairly well maintained. No significant disc herniation identified. There is signal loss and loss of height of the L4-5 intervertebral disc consistent with disc degeneration. There may be mild narrowing of the lateral recesses at the L4-5 level without evidence of gross neural impingement. CONCLUSION: Changes of disc degeneration at L4-5. No other significant findings.
== END 2018-07-06 13:10 ==
PROVIDERS: PCP Family Medicine; Visit Provider Family Medicine
DX: M54.42 Lumbago with sciatica, left side (principal); R29.898 Other symptoms and signs involving the musculoskeletal system; M51.16 Intervertebral disc disorders with radiculopathy, lumbar region
CPT/HCPCS: 72148

== ENCOUNTER 2019-02-26 17:56 | Emergency (ER) | payer MEDICAID, SELFPAY ==
[2019-02-26 18:00] VITALS: BP 160/103; PULSE 76; RESP 20; TEMP 36.5; O2SAT 98
--- NOTE | 2019-02-26 18:16 | DI.RAD_ITS ---
EXAM: XR WRIST LT COMPLETE INDICATION: s/p fall onto L wrist. COMPARISON: LEFT WRIST COMPLETE from 02/02/2014 TECHNIQUE: 2D digital imaging was performed. FINDINGS: There is a question of a slight deformity at the articular aspect of the distal radius. This is not appear significantly changed from the previous exam. Degenerative changes are seen at the 1st carpal metacarpal joint. IMPRESSION: No acute abnormality.
--- NOTE | 2019-02-26 18:17 | ED.GENADUL_ITS ---
Discharge Plan Disposition Patient Disposition: HOME Condition: Stable Discharge Details Chief Complaint: RespSymp Clinical Impression: Acute bronchitis, Left wrist sprain Primary Care Provider: Padilla Polk ED Provider: Taniya Cali Home Meds and New Rx's Prescriptions: New prednisone 20 mg tablet See Rx Instructions .ROUTE .COMPLEX Qty: 12 RF: 0 Continued multivitamin [Daily Multi-Vitamin] 1 EACH tablet 1 ea PO HS RF: 0 FISH OIL 1 tab PO HS RF: 0 omeprazole 20 MG capsule,delayed release(DR/EC) 20 mg PO HS RF: 0 aspirin [Aspirin Childrens] 81 mg Tablet,Chewable 1 tab PO HS RF: 0 acetaminophen 325 mg tablet 650 mg PO QID PRN (Reason: pain) Qty: 20 RF: 0 ibuprofen 600 mg tablet 600 mg PO QID PRN (Reason: pain) Qty: 20 RF: 0 Discharge Instructions Instructions: Acute Bronchitis (ED), Wrist Sprain (ED) Additional Instructions: Rest, ice and elevate your left wrist as much as possible. Alternate Tylenol and Motrin as needed and directed for pain. Take the steroids until finished. Use the albuterol inhaler as needed and directed. Follow-up with your primary care doctor within the next week for repeat left wrist x-ray to rule out possible scaphoid fracture. Follow up with orthopedics if needed for further evaluation. Return to the emergency department if you develop any worsening or new concerning symptoms. Referrals: Anjel Adrian MD [ [facility] STAFF PHYSICIAN] - Discharge Data Discharge Physician: Taniya Cali Medical Decision Making 1806 -- 63-year-old female with 2 complaints. 1) Cough with yellow sputum and shortness of breath with rib pain worse with coughing for 1 week. No fever. Scattered wheezing and rhonchi throughout. Normal respiratory rate, oxygen saturation and she is afebrile. 2) Left wrist pain after fall onto outstretched hand this morning. Tenderness to palpation left dorsal wrist overlying ulnar styloid. + L snuff box tenderness. Neurovascular intact. No deformity noted. Will give a DuoNeb and p.o. prednisone and sent for left wrist x-ray. As she has no fever, normal appetite without tachycardia and oxygen saturation, do not see an indication for chest x-ray. 1854 --wrist x-ray negative. Patient feels much better after neb treatment. Breath sounds significantly improved. Oxygen saturation 99% on room air. Normal heart rate. She is smiling and appears in no acute distress. As she has left snuffbox tenderness, will place a left wrist splint with plan for follow-up with the primary care doctor for reevaluation of cough and referral for outpatient x-ray in the next 7 to 10 days. She was given orthopedic follow-up information if needed. Will send home with an albuterol inhaler as well as prednisone prescription. She is advised to return here immediately with any worsening or new concerning symptoms. Medical Records Medical records reviewed: Yes I reviewed the patient's medical records. Imaging Data Radiologic Study: Radiologist's impression: XR Left Wrist Exam date and time: 02/26/2019 6:26 PM Clinical history: 63 years old, female; Other: S/P fall onto lt wrist TECHNIQUE: Imaging protocol: XR Left wrist. Views: 3 or more views. COMPARISON: CR LEFT WRIST COMPLETE 02/02/2014 12:18 FINDINGS: Bones/joints: Mild degenerative changes of the first metacarpal carpal joint. No fracture dislocation. Normal bone mineralization. Soft tissues: Unremarkable. IMPRESSION: No evidence for acute bony injury. If clinical symptoms persist recommend followup film in 7-10 days. HPI General Mode of arrival: ambulatory . Date/Time Provider Initiated Documentation: 02/26/19 18:06 . Limitations to Documentation: no limitations . Information obtained by: patient . HPI Narrative: 63-year-old female here with 2 complaints. 1) Cough with occasional yellow sputum, shortness of breath and rib pain with coughing for the past week. No relief with NyQuil. Denies fever. Admits to normal appetite. 2) left wrist pain after fall onto wrist this morning. Complaining of pain in the left ulnar wrist. Has not taken any medication for pain. Denies any hand, elbow or shoulder pain. Related Data Home Medications Medication Instructions Recorded Confirmed omeprazole 20 mg PO HS 08/19/12 02/26/19 Fish Oil 1 tab PO HS 05/18/14 02/26/19 multivitamin [Daily Multi-Vitamin] 1 ea PO HS 05/18/14 02/26/19 aspirin [Aspirin Childrens] 1 tab PO HS 04/12/18 02/26/19 acetaminophen 650 mg PO QID PRN #20 tab 06/02/18 06/23/18 ibuprofen 600 mg PO QID PRN #20 tab 06/02/18 06/23/18 prednisone See Rx Instructions .ROUTE 02/26/19 .COMPLEX #12 tab Previous Rx's Medication Instructions Recorded acetaminophen 650 mg PO QID PRN #20 tab 06/02/18 ibuprofen 600 mg PO QID PRN #20 tab 06/02/18 prednisone See Rx Instructions .ROUTE 02/26/19 .COMPLEX #12 tab Allergies Allergy/AdvReac Type Severity Reaction Status Date / Time cyclobenzaprine AdvReac Intermediate excessive Verified 02/26/19 18:04 sedatio General Stated Complaint: RespSymp KIET: 3 Review of Systems All systems reviewed & are unremarkable except as noted in HPI and below Constitutional Constitutional: Reports as per HPI, Denies chills and Denies fever(s) Eyes Eyes: Denies blurry vision ENT Ears, Nose, Mouth, and Throat: Denies dizziness, Denies sore throat and Denies throat swelling Cardiovascular Cardiovascular: Denies chest pain and Reports dyspnea Respiratory Respiratory: Reports cough and Reports dyspnea Gastrointestinal Gastrointestinal: Denies abdominal pain, Denies diarrhea and Denies vomiting Genitourinary Genitourinary: Denies hematuria and Denies dysuria Musculoskeletal Musculoskeletal: Denies back pain and Denies numbness Integumentary/Breasts Skin/Breast: Denies lesions and Denies rash Neurologic Neurologic: Denies dizziness, Denies focal weakness and Denies numbness Allergic/Immunologic Allergic/Immunologic: Denies throat swelling [facility] Medical History GERD (gastroesophageal reflux disease) Umbilical hernia without obstruction and without gangrene (Resolved) Surgical History Cholecystectomy Colonoscopy - MAC (~2014) Dilation and curettage EGD - MAC (~2014) Endometrial Ablation Ligation of fallopian tube S/P ventral herniorrhaphy (Acute ~06/02/18) umbilical hernia repair Family History Other Personal history of malignant neoplasm Social History Smoking/Tobacco Use Status: Never Alcohol Intake: current Alcohol Intake frequency: holidays/special occasions only Drug use: Never Substance use type: does not use Do you feel safe in your relationship?: Yes Exam Const General: cooperative, healthy appearing and no acute distress HENCO Head: normal to inspection Face and sinus: normal facial exam Eyes General: appearance normal, both eyes and all related structures EOM: EOM intact bilaterally Neck Neck: normal visual inspection and No submandibular swelling Lymphatic: no lymphadenopathy noted Chest Chest: normal inspection of the chest and no tenderness Resp Effort & Inspection: normal respiratory effort and able to speak in complete sentences Auscultation: clear to auscultation bilaterally, rhonchi upper bilaterally and wheezes scattered wheezes Cardio Rate: regular rate Rhythm: regular rhythm GI Inspection: normal to inspection Palpation: soft, not firm, not rigid and nontender Auscultation: normal bowel sounds Skin General skin exam: no rashes or lesions noted Neuro General: alert, awake and oriented x3 Cognition: normal cognition Speech: speech normal Motor: muscle tone normal throughout Sensory Exam: no sensory deficits noted Extrem General: normal to inspection, full ROM, normal capillary refill, no calf tenderness bilaterally and no edema Elbow/forearm/wrist images: 1. Tenderness to palpation overlying left ulnar styloid. Unable to flex, extend, supinate and pronate due to pain. Left radial and ulnar pulses intact. Minimal edema overlying dorsal wrist. + left snuffbox tenderness. No erythema, ecchymosis or deformity noted. Psych Appearance: grossly normal Mental Status: mental status grossly normal Speech and Movement: speech and movement normal Affect: normal affect Course Vital Signs Vital signs: Vital Signs Temperature 97.7 F 02/26/19 18:00 Pulse 76 02/26/19 18:00 Respiratory Rate 20 02/26/19 18:00 Blood Pressure 160/103 H 02/26/19 18:00 Pulse Oximetry 98 02/26/19 18:00 Temperature 97.7 F 02/26/19 18:00 Temperature Source Skin 02/26/19 18:00 Pulse 76 02/26/19 18:00 Respiratory Rate 20 02/26/19 18:00 Respiratory Effort 02/26/19 18:05 Blood Pressure 160/103 H 02/26/19 18:00 Blood Pressure Position Sitting 02/26/19 18:00 Pulse Oximetry 98 02/26/19 18:00 Oxygen Delivery Method Room Air 02/26/19 18:00 Oxygen Flow Rate 0 02/26/19 18:00 Pain Level 6 02/26/19 18:06 Comment 02/26/19 18:00
[2019-02-26] MEDS: predniSONE 20 MG TAB 60 MG PO (18:22)
[2019-02-26] MEDS: Albuterol/Ipratropium 3 ML UPD VIAL UPD (18:37)
--- NOTE | 2019-02-26 19:00 | DI.VRAD_ITS ---
PROCEDURE INFORMATION: Exam: XR Left Wrist Exam date and time: 02/26/2019 6:26 PM Clinical history: 63 years old, female; Other: S/P fall onto lt wrist TECHNIQUE: Imaging protocol: XR Left wrist. Views: 3 or more views. COMPARISON: CR LEFT WRIST COMPLETE 02/02/2014 12:18 FINDINGS: Bones/joints: Mild degenerative changes of the first metacarpal carpal joint. No fracture dislocation. Normal bone mineralization. Soft tissues: Unremarkable. IMPRESSION: No evidence for acute bony injury. If clinical symptoms persist recommend followup film in 7-10 days. Dictated and Authenticated by: Rosa Herrera MD. Ordering:PHILIPP Monahan MD
[2019-02-26] MEDS: Albuterol HFA 8 GM 60 PUFF INH IH (19:07)
[2019-02-26] MEDS: Ibuprofen 600 MG TAB PO (19:07)
[2019-02-26 19:09] VITALS: BP 157/76; PULSE 74; RESP 17; O2SAT 96
--- NOTE | 2019-02-26 19:15 | NUR.NOTE ---
Splint to left wrist. Med a/o. Discharge instructions reviewed with verbal understanding. aware to f/u with pcp as needed. ambulated to exit with steady gait.
== END 2019-02-26 19:25 | disposition home or self-care (01) ==
PROVIDERS: Emergency Provider Physician Assistant; PCP Family Medicine
DX: J20.9 Acute bronchitis, unspecified (principal); S63.502A Unspecified sprain of left wrist, initial encounter; W01.0XXA Fall on same level from slipping, tripping and stumbling without subsequent striking against object, initial encounter
CPT/HCPCS: 99283; 73110; J7512; J7620; L3908

== ENCOUNTER 2019-03-04 01:29 | Outpatient (CLI) | payer MEDICAID, SELFPAY ==
--- NOTE | 2019-03-04 10:06 | DI.RAD_ITS ---
EXAM: XR HIP LT COMPLETE AND AP PELVIS INDICATION: LT HIP PAIN M25.552. COMPARISON: No exams were available for comparison TECHNIQUE: 2D digital imaging was performed. FINDINGS: No acute fracture or dislocation is present. There are mild degenerative changes of the left hip. T he bones are normally mineralized. There are clips in the pelvis. The soft tissues are otherwise un remarkable. Degenerative changes are seen in the lower lumbar spine. IMPRESSION: Mild degenerative changes of the left hip.
--- NOTE | 2019-03-04 10:10 | DI.RAD_ITS ---
EXAM: XR WRIST LT COMPLETE INDICATION: WRIST PAIN M25.532. COMPARISON: No exams were available for comparison TECHNIQUE: 2D digital imaging was performed. FINDINGS: No acute or healing fracture or dislocation is present. There are degenerative changes seen at the 1s t carpometacarpal joint. The soft tissues are unremarkable. IMPRESSION: No evidence of an acute or healing fracture or dislocation.
== END 2019-03-04 01:49 ==
PROVIDERS: PCP Family Medicine; Visit Provider Family Medicine
DX: M25.552 Pain in left hip (principal); M16.12 Unilateral primary osteoarthritis, left hip; M25.532 Pain in left wrist; M18.12 Unilateral primary osteoarthritis of first carpometacarpal joint, left hand
CPT/HCPCS: 73110; 73502

== ENCOUNTER 2019-03-06 14:18 | Emergency (ER) | payer MEDICAID, SELFPAY ==
[2019-03-06 14:23] VITALS: BP 126/72; PULSE 63; RESP 12; TEMP 36.4; O2SAT 99
--- NOTE | 2019-03-06 15:09 | W.ED.GENAD ---
Discharge Plan Disposition Patient Disposition: HOME Condition: Improving Discharge Details Chief Complaint: RespSymp Clinical Impression: Sinusitis, Bronchitis Primary Care Provider: Padilla Polk ED Provider: Taniya Cali Home Meds and New Rx's Prescriptions: New amoxicillin-pot clavulanate [Augmentin] 875-125 mg tablet 1 tab PO BID 10 Days Qty: 20 RF: 0 methylprednisolone [Medrol (José Manuel)] 4 mg tablets,dose pack See Rx Instructions .ROUTE .COMPLEX Qty: 21 RF: 0 Continued multivitamin [Daily Multi-Vitamin] 1 EACH tablet 1 ea PO HS RF: 0 FISH OIL 1 tab PO HS RF: 0 omeprazole 20 MG capsule,delayed release(DR/EC) 20 mg PO HS RF: 0 aspirin [Aspirin Childrens] 81 mg Tablet,Chewable 1 tab PO HS RF: 0 acetaminophen 325 mg tablet 650 mg PO QID PRN (Reason: pain) Qty: 20 RF: 0 ibuprofen 600 mg tablet 600 mg PO QID PRN (Reason: pain) Qty: 20 RF: 0 Discharge Instructions Instructions: Sinusitis (ED), Acute Bronchitis (ED) Additional Instructions: Alternate Tylenol and Motrin as needed and directed for pain. Apply topical Lidoderm patches to the affected areas of pain on your chest as needed and directed. Use your albuterol inhaler as needed and directed. Take the antibiotics until finished. If you have no relief in symptoms, you can start the steroids. Follow-up with your primary care doctor within the week for reevaluation. Return to the emergency department if you develop any worsening or new concerning symptoms. Discharge Data Discharge Date/Time-TO BE ENTERED AT DEPARTURE: 03/06/19 17:10 Discharge Physician: Taniya Cali Medical Decision Making 9401 -- 63-year-old female recently treated for URI with steroids presents with cough with yellow sputum, shortness of breath, burning in chest, sore throat and left ear pain for the past few days. Symptoms have been improving but returned after steroids finished. She denies fever. Somewhat decreased appetite. Rapid strep done on arrival and negative. Vitals within normal limits. Afebrile. Patient appears nontoxic. Normal ENT exam. Lungs clear. Differential diagnosis includes recurrent URI, pharyngitis, recurrent bronchitis, sinusitis, pneumonia. History presentation not consistent with ACS or PE. Considering age, will obtain a d-dimer, EKG and chest x-ray. Will give DuoNeb and a dose of Decadron and reassess. EKG notes a rate of 60, sinus, no acute ST ischemic changes. 1635 --patient feels better after DuoNeb. Chest x-ray negative. D-dimer negative. Patient states she feels good to go home. Will treat with antibiotics due to recurrent URI. She was given 1 dose of Augmentin here as well as prescription. We will also send with a prescription for steroids if symptoms do not improve or worsen. She is advised to follow-up with her primary care doctor this week for reevaluation and to return here if worse. Medical Records Medical records reviewed: Yes I reviewed the patient's medical records. Imaging Data Radiologic Study: Radiologist's impression: XR Chest, 2 Views Exam date and time: 03/06/2019 3:56 PM Age: 63 years old Clinical history: SOB, chest pain, R/O acute disease TECHNIQUE: Imaging protocol: XR of the chest Views: 2 views. COMPARISON: CR CHEST 2 VIEWS PA,LAT 11/28/2016 9:51 AM FINDINGS: Lungs: No alveolar infiltrate. Pleural space: No pleural fluid collection. Heart/Mediastinum: Unremarkable. No cardiomegaly. Bones/joints: Prior right shoulder surgery. IMPRESSION: No active pulmonary disease. No acute changes compared to 11/28/2016 Lab Data Lab results reviewed: Yes I reviewed the patient's lab results. Labs: 03/06/19 14:29 Tonsil - Not Specified Streptococcus Screen (TAO) - Pending Laboratory Tests Range/Units 03/06/19 15:44 D-Dimer (<500) ng/mlFEU 370 ECG Data Attestation: I personally reviewed and interpreted this ECG (s) as follows: Interpretation: rate of 60, sinus, no acute ST elevation or depression. DC 124. QTc 414. QRS 90. HPI General Mode of arrival: ambulatory. Date/Time Provider Initiated Documentation: 03/06/19 14:31. Limitations to Documentation: no limitations. Information obtained by: patient. HPI Narrative: Patient is a 63-year-old female with history of GERD who presents with history of sore throat, cough with yellow sputum, left ear pain, burning in chest and shortness of breath for the past 3 days. Patient was seen here recently and diagnosed with URI and treated with steroids. Patient states her symptoms were improving until she stopped the steroids recently. She followed up with her primary care doctor this week and was advised to continue her steroids at that time. Related Data Home Medications Medication Instructions Recorded Confirmed omeprazole 20 mg PO HS 08/19/12 03/06/19 Fish Oil 1 tab PO HS 05/18/14 03/06/19 multivitamin [Daily Multi-Vitamin] 1 ea PO HS 05/18/14 03/06/19 aspirin [Aspirin Childrens] 1 tab PO HS 04/12/18 03/06/19 acetaminophen 650 mg PO QID PRN #20 tab 06/02/18 03/06/19 ibuprofen 600 mg PO QID PRN #20 tab 06/02/18 03/06/19 amoxicillin-pot clavulanate 1 tab PO BID 10 Days #20 tab 03/06/19 [Augmentin] methylprednisolone [Medrol (José Manuel)] See Rx Instructions .ROUTE 03/06/19 .COMPLEX #21 dose pk Previous Rx's Medication Instructions Recorded acetaminophen 650 mg PO QID PRN #20 tab 06/02/18 ibuprofen 600 mg PO QID PRN #20 tab 06/02/18 amoxicillin-pot clavulanate 1 tab PO BID 10 Days #20 tab 03/06/19 [Augmentin] methylprednisolone [Medrol (José Manuel)] See Rx Instructions .ROUTE 03/06/19 .COMPLEX #21 dose pk Allergies Allergy/AdvReac Type Severity Reaction Status Date / Time cyclobenzaprine AdvReac Intermediate excessive Verified 03/06/19 14:26 sedatio General Stated Complaint: RespSymp KIET: 3 Review of Systems All systems reviewed & are unremarkable except as noted in HPI and below Constitutional Constitutional: Reports as per HPI, Denies chills and Denies fever(s) Eyes Eyes: Denies blurry vision ENT Ears, Nose, Mouth, and Throat: Denies dizziness, Denies sore throat and Denies throat swelling Cardiovascular Cardiovascular: Denies chest pain and Denies dyspnea Respiratory Respiratory: Denies cough and Denies dyspnea Gastrointestinal Gastrointestinal: Denies abdominal pain, Denies diarrhea and Denies vomiting Genitourinary Genitourinary: Denies hematuria and Denies dysuria Musculoskeletal Musculoskeletal: Denies back pain and Denies numbness Integumentary/Breasts Skin/Breast: Denies lesions and Denies rash Neurologic Neurologic: Denies dizziness, Denies focal weakness and Denies numbness Allergic/Immunologic Allergic/Immunologic: Denies throat swelling REPLACED BY [facility] Social History Smoking/Tobacco Use Status: Never Alcohol Intake: current Alcohol Intake frequency: holidays/special occasions only Drug use: Never Substance use type: does not use Do you feel safe at home: Yes Do you feel safe in your relationship?: Yes Exam Const General: cooperative, healthy appearing and no acute distress HENMT Head: normal to inspection Ears: hearing grossly normal bilaterally and TM's normal bilaterally Face and sinus: normal facial exam and no sinus tenderness Mouth: oral mucosae normal Throat: posterior oropharynx normal Eyes General: appearance normal, both eyes and all related structures Pupils: PERRL EOM: EOM intact bilaterally Neck Neck: normal visual inspection and No submandibular swelling Lymphatic: no lymphadenopathy noted Chest Chest: normal inspection of the chest and no tenderness Resp Effort & Inspection: normal respiratory effort and able to speak in complete sentences Auscultation: clear to auscultation bilaterally Cardio Rate: regular rate Rhythm: regular rhythm GI Inspection: normal to inspection Palpation: soft, not firm, not rigid and nontender Auscultation: normal bowel sounds Skin General skin exam: no rashes or lesions noted Neuro General: alert, awake and oriented x3 Cognition: normal cognition Speech: speech normal Motor: muscle tone normal throughout Sensory Exam: no sensory deficits noted Extrem General: normal to inspection, full ROM, normal capillary refill, no calf tenderness bilaterally and no edema Psych Appearance: grossly normal Mental Status: mental status grossly normal Speech and Movement: speech and movement normal Affect: normal affect Course Vital Signs Vital signs: Vital Signs Temperature 97.5 F L 03/06/19 14:23 Pulse 63 03/06/19 14:23 Respiratory Rate 12 03/06/19 14:23 Blood Pressure 126/72 03/06/19 14:23 Pulse Oximetry 99 03/06/19 14:23 Temperature 97.5 F L 03/06/19 14:23 Temperature Source Temporal Artery Scan 03/06/19 14:23 Pulse 63 03/06/19 14:23 Respiratory Rate 12 03/06/19 14:23 Respiratory Effort 03/06/19 14:30 Respiratory Depth Normal 03/06/19 14:30 Blood Pressure 126/72 03/06/19 14:23 Blood Pressure Position Sitting 03/06/19 14:23 Pulse Oximetry 99 03/06/19 14:23 Oxygen Delivery Method Room Air 03/06/19 14:23 Oxygen Flow Rate 0 03/06/19 14:23 Pain Level 7 03/06/19 14:23 Lab/Test Results Lab/Test Results: 03/06/19 14:29 Tonsil - Not Specified Streptococcus Screen (TAO) - Pending POC Strep Test-LISA(Rapid) Start: 03/06/19 14:27 Freq: Status: Active Protocol: Document 03/06/19 14:38 TB (Rec: 03/06/19 14:38 TB [id number]) Strep test-LISA(Rapid)-POC POC-Strep test-LISA (Rapid) Negative POC-Strep test-LISA (Rapid) Negative
[2019-03-06] MEDS: Dexamethasone 10 MG/ML VIAL PO (15:36)
[2019-03-06] MEDS: Albuterol/Ipratropium 3 ML UPD VIAL UPD (15:36)
--- NOTE | 2019-03-06 15:55 | DI.RAD_ITS ---
EXAM: XR CHEST 2V PA LATERAL INDICATION: cough, sob, chest pain, r/o acute disease. COMPARISON: No exams were available for comparison TECHNIQUE: 2D digital imaging was performed. FINDINGS: The cardiac and mediastinal contours have a normal appearance. The lungs are well inflated and clear . No infiltrate, effusion or pneumothorax is seen. IMPRESSION: Negative chest x-ray.
--- NOTE | 2019-03-06 16:11 | DI.VRAD_ITS ---
PROCEDURE INFORMATION: Exam: XR Chest, 2 Views Exam date and time: 03/06/2019 3:56 PM Age: 63 years old Clinical history: SOB, chest pain, R/O acute disease TECHNIQUE: Imaging protocol: XR of the chest Views: 2 views. COMPARISON: CR CHEST 2 VIEWS PA,LAT 11/28/2016 9:51 AM FINDINGS: Lungs: No alveolar infiltrate. Pleural space: No pleural fluid collection. Heart/Mediastinum: Unremarkable. No cardiomegaly. Bones/joints: Prior right shoulder surgery. IMPRESSION: No active pulmonary disease. No acute changes compared to 11/28/2016 Dictated and Authenticated by: Darryn Garcia MD. Ordering:PHILIPP Monahan MD
[2019-03-06 16:31] LABS: D-Dimer 370 ng/mlFEU (<500)
[2019-03-06 16:50] VITALS: BP 115/52; PULSE 61; RESP 16; O2SAT 99
[2019-03-06] MEDS: Amoxicillin 875/Clav. 125 TAB PO (17:07)
[2019-03-06] MEDS: Lidocaine 5% Patch 1 PATCH TP (17:08)
== END 2019-03-06 17:10 | disposition home or self-care (01) ==
PROVIDERS: Emergency Provider Physician Assistant; PCP Family Medicine
DX: J20.9 Acute bronchitis, unspecified (principal); J01.90 Acute sinusitis, unspecified; J02.9 Acute pharyngitis, unspecified; H92.02 Otalgia, left ear
CPT/HCPCS: 36415; 87880; 93005; 94640; 99285; 71046; 85379; 87081; 93010; J1100; J7620

== ENCOUNTER 2020-02-16 00:54 | Outpatient (CLI) | payer MEDICAID, SELFPAY ==
[2020-02-16 10:33] LABS: HCT 47.5 % (36.0-46.0); HGB 15.2 g/dL (11.2-15.7); MCH 27.9 pg (27.0-33.0); MCV 87.2 fL (80-95); MPV 9.8 fL (8.0-11.0); Platelet Count 199 10^3/uL (130-400); RBC 5.45 10^6/uL (3.93-5.22); RDW 12.2 % (11.7-14.6); RDW-SD 38.9 fL; WBC 5.27 10^3/uL (4.4-10.8)
[2020-02-16 11:59] LABS: Anion Gap 6.9 mmol/L (3-11); BUN 15 mg/dL (7-18); CO2 27.1 mmol/L (21.0-32.0); CREATININE 0.95 mg/dL (0.55-1.02); Calcium 9.1 mg/dL (8.5-10.1); Calculated LDL 147 mg/dL (<100); Chloride 107 mmol/L (98-107); Cholesterol 239 mg/dL (<200); Estimated GFR 59.61 (mL/min/1.73m2); Glucose 87 mg/dL (74-106); HDL Cholesterol 79 mg/dL (40-60); Potassium 4.5 mmol/L (3.5-5.1); Sodium 141 mmol/L (136-145); Triglyceride 67 mg/dL (<150); Vitamin B12 700 pg/mL (193-986)
== END 2020-02-16 01:14 ==
PROVIDERS: PCP Nurse Practitioner Family; Visit Provider Nurse Practitioner Family
DX: E78.5 Hyperlipidemia, unspecified (principal); K21.00 Gastro-esophageal reflux disease with esophagitis, without bleeding; Z00.00 Encounter for general adult medical examination without abnormal findings; D50.9 Iron deficiency anemia, unspecified
CPT/HCPCS: 36415; 80048; 80061; 85027; 82607; 83735

== ENCOUNTER 2020-03-05 18:15 | Outpatient (CLI) | payer MEDICAID, SELFPAY ==
--- NOTE | 2020-03-05 09:41 | DI.RAD_ITS ---
EXAM: XR RIBS LT W PA LAT CHEST CLINICAL HISTORY: RIB PAIN LT SIDED, R07.81. COMPARISON: CR,XR XR CHEST 2V PA LATERAL from 03/06/2019 FINDINGS: LUNGS: Clear . Mild hyperinflation. No pneumothorax is seen. No infiltrate or effusion. HEART: Normal in size. BONES: No displaced rib fracture is seen. No bony destructive lesion is seen. The spine is grossly i ntact. Prior surgery right shoulder. Mild scoliosis and degenerative changes of the thoracic spine. Surgical clips are seen in the right upper quadrant. IMPRESSION: Unremarkable chest and left ribs.
== END 2020-03-05 18:35 ==
PROVIDERS: PCP Nurse Practitioner Family; Visit Provider Nurse Practitioner Family
DX: R07.81 Pleurodynia (principal)
CPT/HCPCS: 71046; 71100

== ENCOUNTER 2020-04-02 12:35 | Emergency (ER) | payer MEDICAID, SELFPAY ==
--- NOTE | 2020-04-02 12:30 | DI.RAD_ITS ---
EXAM: XR FINGER LT MIDDLE EXAM DATE/TIME: CLINICAL HISTORY: Laceration tip R/O foreign body, fracture. TECHNIQUE: 2D digital imaging was performed. COMPARISON: None. FINDINGS: BONES: There is a mildly displaced fracture of the medial aspect of the terminal tuft of the left mid dle finger. No bony destructive lesion is seen. JOINTS: No dislocation is present. SOFT TISSUE: No radiopaque foreign body is identified. There is deformity seen in the dorsum of the tip of the finger in the region of the nailbed. A nail bed injury cannot be excluded. Please correl ate clinically. There is a laceration seen in the distal aspect of the finger. IMPRESSION: 1. Mildly displaced fracture of the terminal tuft of the left middle finger. 2. Deformity involving the nail bed suspicious for injury. Please correlate clinically. 3. No radiopaque foreign body. DATA REPOSITORY: RADIATION DOSE DELIVERED:
[2020-04-02 12:42] VITALS: BP 149/104; PULSE 67; RESP 16; TEMP 36.5; O2SAT 97
--- NOTE | 2020-04-02 12:45 | ED.GENADUL_ITS ---
Discharge Plan Disposition Patient Disposition: HOME Condition: Stable Discharge Details Clinical Impression: Nail avulsion, finger, Laceration of left middle finger with damage to nail Primary Care Provider: Wendy Cook ED Provider: Bekah Al Home Meds and New Rx's Prescriptions: New amoxicillin-pot clavulanate [Augmentin] 875-125 mg tablet 1 tab PO BID 10 Days Qty: 20 RF: 0 No Action multivitamin [Daily Multi-Vitamin] 1 EACH tablet 1 ea PO HS RF: 0 FISH OIL 1 tab PO HS RF: 0 omeprazole 20 MG capsule,delayed release(DR/EC) 20 mg PO HS RF: 0 aspirin [Aspirin Childrens] 81 mg Tablet,Chewable 1 tab PO HS RF: 0 acetaminophen 325 mg tablet 650 mg PO QID PRN (Reason: pain) Qty: 20 RF: 0 ibuprofen 600 mg tablet 600 mg PO QID PRN (Reason: pain) Qty: 20 RF: 0 Discharge Instructions Instructions: Finger Laceration (ED) Additional Instructions: Please return to the ED or follow-up with orthopedics if able in 24 to 48 hours. Please return for a recheck in 48 hours. Leave dressing in place for 24 hours and splint. You may gingerly wash under running soap and water after 24 hours. Take the antibiotic as prescribed. Please take Tylenol or Ibuprofen with food every 4-6 hours as needed for pain and swelling. You may apply ice and elevate above the level of the heart while sitting or lying down. The numbing medication will wear off in approximately 2 hours. Referrals: Anjel Adrian MD [ [facility] STAFF PHYSICIAN] - Discharge Data Discharge Date/Time-TO BE ENTERED AT DEPARTURE: 04/02/20 14:50 Medical Decision Making 64-year-old female presents to the ED with chief complaint of left finger trauma. Patient says that she was using a pulldown saw prior to arrival when the wood kicked back hitting her left middle finger. She has couple lacerations noted to the distal tip of her left middle finger. This appears to involve the nailbed. There is a small slow venous ooze noted upon arrival. She has no other injuries. She is alert and oriented x3. She did not take any medications prior to arrival. Digital block performed as noted in procedure note above. Laceration repair performed 5 observable 4.0 Vicryl sutures placed. One 4-0 Ethilon suture placed to secure the nail. Petroleum dressing and compression dressing applied patient placed in a splint. Instructed to follow-up with orthopedics within 24 to 48 hours. If unable to follow-up with Ortho instructed to return here to the ED. CLINICAL HISTORY: Laceration tip R/O foreign body, fracture. TECHNIQUE: 2D digital imaging was performed. COMPARISON: None. FINDINGS: BONES: There is a mildly displaced fracture of the medial aspect of the terminal tuft of the left middle finger. No bony destructive lesion is seen. JOINTS: No dislocation is present. SOFT TISSUE: No radiopaque foreign body is identified. There is deformity seen in the dorsum of the tip of the finger in the region of the nailbed. A nail bed injury cannot be excluded. Please correlate clinically. There is a laceration seen in the distal aspect of the finger. IMPRESSION: 1. Mildly displaced fracture of the terminal tuft of the left middle finger. 2. Deformity involving the nail bed suspicious for injury. Please correlate clinically. 3. No radiopaque foreign body. I did discuss case with orthopedic surgeon on-call Anjel Adrian who was able to view the x-rays. He is agreeable to follow-up with patient in the next 24 to 48 hours. Discuss strict return instructions with patient and home care, verbalized understanding. HPI General Mode of arrival: ambulatory . Date/Time Provider Initiated Documentation: 04/02/20 12:37 . Limitations to Documentation: no limitations . Information obtained by: patient . HPI Narrative: 64-year-old female presents to the ED with chief complaint of left finger trauma. Patient says that she was using a pulldown saw prior to arrival when the wood kicked back hitting her left middle finger. She has couple lacerations noted to the distal tip of her left middle finger. This appears to involve the nailbed. There is a small slow venous ooze noted upon arrival. She has no other injuries. She is alert and oriented x3. She did not take any medications prior to arrival. Related Data Home Medications Medication Instructions Recorded Confirmed omeprazole 20 mg PO HS 08/19/12 04/02/20 Fish Oil 1 tab PO HS 05/18/14 04/02/20 multivitamin [Daily Multi-Vitamin] 1 ea PO HS 05/18/14 04/02/20 aspirin [Aspirin Childrens] 1 tab PO HS 04/12/18 04/02/20 acetaminophen 650 mg PO QID PRN #20 tab 06/02/18 04/02/20 ibuprofen 600 mg PO QID PRN #20 tab 06/02/18 04/02/20 amoxicillin-pot clavulanate 1 tab PO BID 10 Days #20 tab 04/02/20 [Augmentin] Previous Rx's Medication Instructions Recorded acetaminophen 650 mg PO QID PRN #20 tab 06/02/18 ibuprofen 600 mg PO QID PRN #20 tab 06/02/18 amoxicillin-pot clavulanate 1 tab PO BID 10 Days #20 tab 04/02/20 [Augmentin] Allergies Allergy/AdvReac Type Severity Reaction Status Date / Time cyclobenzaprine AdvReac Intermediate excessive Verified 04/02/20 12:45 sedatio General KIET: 3 Review of Systems All systems reviewed & are unremarkable except as noted in HPI and below Integumentary/Breasts Skin/Breast: Reports wounds (Left middle finger laceration) PENDING SALE TO [facility] Medical History (Updated 04/02/20 @ 14:29 by Bekah Al) GERD (gastroesophageal reflux disease) Umbilical hernia without obstruction and without gangrene Surgical History Cholecystectomy Colonoscopy - MAC (~2014) Dilation and curettage EGD - MAC (~2014) Endometrial Ablation Ligation of fallopian tube S/P ventral herniorrhaphy (~06/02/18) umbilical hernia repair Family History Other Personal history of malignant neoplasm Social History Smoking/Tobacco Use Status: Never Smoking risk assessment performed?: Yes Alcohol Intake: current Alcohol Intake frequency: holidays/special occasions only Drug use: Never Substance use type: does not use Do you feel safe at home: Yes Do you feel safe in your relationship?: Yes Exam Extrem Left upper extremity: hand Details: laceration 3rd digit palmar aspect distal Hand/finger images: 1. Laceration Procedures Laceration Laceration 1: Site: hand (left middle finger partial amputation) Side (If applicable): left Size (cm): 3 Description: irregular and other (Almost circumferential partial amputation of the distal left middle finger. Involves the nailbed. Nail was completely removed from the base of the nailbed) Local Anesthetic: Lidocaine 1% and Bupivicaine 0.5% Pre-repair: wound explored and irrigated extensively Skin layer closed with: nylon Size (cm): 4-0 Number of sutures: 1 Technique: simple, interrupted Subcutaneous layer closed with: vicryl Size: 4-0 Number of sutures: 5 Technique: simple, interrupted Nerve Block Nerve Block 1: Time out performed: No Local Anesthetic: Lidocaine 1% and Bupivicaine 0.5% Amount of anesthesia used (mL): 4 Side: left Nerve Blocks: digital (4 sided ring block) Procedure Successful: Yes Patient Tolerated Procedure: well and no complications Complications: none
[2020-04-02] MEDS: Bupivacaine 0.5% Pres-Free 30 ML VIAL IJ (14:54)
[2020-04-02] MEDS: Amoxicillin 875/Clav. 125 TAB PO (14:54)
== END 2020-04-02 14:50 | disposition home or self-care (01) ==
PROVIDERS: Emergency Provider Registered Nurse Emergency; PCP Nurse Practitioner Family
DX: S61.312A Laceration without foreign body of right middle finger with damage to nail, initial encounter (principal); W31.2XXA Contact with powered woodworking and forming machines, initial encounter
CPT/HCPCS: 12032; 73140

== ENCOUNTER 2020-04-03 13:26 | Day surgery (SDC) | payer MEDICAID, SELFPAY ==
--- NOTE | 2020-04-03 08:54 | PDOC.DSDIS_ITS ---
Documented by User: Jerrica Parra 04/03/20 10:02 Discharge Plan Disposition Patient Disposition: HOME Condition: Good Discharge Details Reason For Visit: Nail injury to the left middle finger Attending Provider: Anjel Adrian Primary Care Provider: Wendy Cook Home Meds and New Rx's Prescriptions: Continued multivitamin [Daily Multi-Vitamin] 1 EACH tablet 1 ea PO HS RF: 0 FISH OIL 1 tab PO HS RF: 0 omeprazole 20 MG capsule,delayed release(DR/EC) 20 mg PO HS RF: 0 aspirin [Aspirin Childrens] 81 mg Tablet,Chewable 1 tab PO HS RF: 0 acetaminophen 325 mg tablet 650 mg PO QID PRN (Reason: pain) Qty: 20 RF: 0 ibuprofen 600 mg tablet 600 mg PO QID PRN (Reason: pain) Qty: 20 RF: 0 amoxicillin-pot clavulanate [Augmentin] 875-125 mg tablet 1 tab PO BID 10 Days Qty: 20 RF: 0 No Action naproxen sodium [Aleve] 220 mg Tablet 440 mg PO BID PRNRF: 0 Discharge Instructions Additional Instructions: Activity: You may use your fingers for light activity. You should limit any excessive motion or forceful gripping until seen in the office. You may use the finger for light activity but avoid direct pressure or contact. Dressings: You should keep the initial surgical dressing in place until your followup. You should keep the dressings and the wound clean at all times. If the dressing becomes soiled or comes undone, you may replace with light gauze and/or a bandaid until follow-up but best to keep the initial dressing in place. Medications: - You should take Tylenol and Ibuprofen around the clock as prescribed or per saw offbearer's recommendations. Follow-up: Thursday, 04/09, dressing change with Dr. Adrian or one of the PAs Referrals: Anjel Adrian MD [ [facility] STAFF PHYSICIAN] - Activity:: Elevate Remove Dressings/Wound Care:: Do Not Remove Shower/Bathe:: Cover Diet:: As Tolerated Discharge Orders Discharge Orders: Discharge Order (Routine); Ordered 04/03/20 Ordered By: Jerrica Parra DS: Diagnosis Discharge Diagnosis (1) Nail avulsion, finger: Status: Acute (2) Laceration of left middle finger with damage to nail: Status: Acute Documented by User: Anjel Adrian MD 04/03/20 15:52 Discharge Plan Disposition Patient Disposition: HOME Condition: Good Discharge Details Reason For Visit: Nail injury to the left middle finger Attending Provider: Anjel Adrian Primary Care Provider: Wendy Cook Home Meds and New Rx's Prescriptions: Continued multivitamin [Daily Multi-Vitamin] 1 EACH tablet 1 ea PO HS RF: 0 FISH OIL 1 tab PO HS RF: 0 omeprazole 20 MG capsule,delayed release(DR/EC) 20 mg PO HS RF: 0 aspirin [Aspirin Childrens] 81 mg Tablet,Chewable 1 tab PO HS RF: 0 acetaminophen 325 mg tablet 650 mg PO QID PRN (Reason: pain) Qty: 20 RF: 0 ibuprofen 600 mg tablet 600 mg PO QID PRN (Reason: pain) Qty: 20 RF: 0 amoxicillin-pot clavulanate [Augmentin] 875-125 mg tablet 1 tab PO BID 10 Days Qty: 20 RF: 0 No Action naproxen sodium [Aleve] 220 mg Tablet 440 mg PO BID PRNRF: 0 Discharge Instructions Additional Instructions: Activity: You may use your fingers for light activity. You should limit any excessive motion or forceful gripping until seen in the office. You may use the finger for light activity but avoid direct pressure or contact. Dressings: You should keep the initial surgical dressing in place until your followup. You should keep the dressings and the wound clean at all times. If the dressing becomes soiled or comes undone, you may replace with light gauze and/or a bandaid until follow-up but best to keep the initial dressing in place. Medications: - You should take Tylenol and Ibuprofen around the clock as prescribed or per saw offbearer's recommendations. Follow-up: Thursday, 04/09, dressing change with Dr. Adrian or one of the PAs Referrals: Anjel Adrian MD [ [facility] STAFF PHYSICIAN] - Activity:: Elevate Remove Dressings/Wound Care:: Do Not Remove Shower/Bathe:: Cover Diet:: As Tolerated Discharge Orders Discharge Orders: Discharge Order (Routine); Ordered 04/03/20 Ordered By: Jerrica Parra
[2020-04-03 14:00] VITALS: BP 122/55; PULSE 58; RESP 16; TEMP 36.5; O2SAT 100
--- NOTE | 2020-04-03 14:51 | HPE_ITS ---
Date of service: 04/03/20 Time of Service: 14:52 Assessment and Plan Assessment and plan (1) Nailbed laceration, finger: Status: Acute Qualifiers: Encounter type: initial encounter Qualified Code(s): S61.319A - Laceration without foreign body of unspecified finger with damage to nail, initial encounter (2) Open fracture of phalanx of left middle finger: Status: Acute Assessment and plan: Anette is a 64-year-old [id number] male who suffered an injury to the left middle finger while using a chop saw. This is an open fracture of the distal phalanx which was irrigated and the emergency department. However, it also has obvious nailbed injury which needs to be repaired. I discussed this with Anette and she agreed to proceed. I will perform this with a local anesthetic. I reviewed the injury. I also reviewed the surgery. I also discussed the risk of the procedure to include bleeding, infection, pain, stiffness, malunion, nonunion, nail deformity, continued pain, sensitivity. Despite these risk, she elects to proceed. Qualifiers: Encounter type: initial encounter Phalanx: distal Fracture alignment: nondisplaced Qualified Code(s): S62.663B - Nondisplaced fracture of distal phalanx of left middle finger, initial encounter for open fracture History of Present Illness History of Present Illness Chief Complaint: Left Middle Finger Open Fracture and NailBed Injury Narrative: Anette is a 64-year-old who is working with a chop saw yesterday. The piece of wood she was cutting kicked back and hit her directly on the end of the middle finger. This caused immediate deformity, laceration, and pain. She was seen in the emergency department where the finger was numbed, cleaned, and repaired. She denies any previous injury. She is right-hand dominant. I was called by the emergency department provider with concern about the nail. The nail was described as being elevated out of the eponychium and based on this information with the x-rays I recommended a more formal debridement with nailbed repair. Review of Systems All systems reviewed & are unremarkable except as noted in HPI and below [facility] Medical History (Updated 04/03/20 @ 20:56 by Anjel Adrian MD) GERD (gastroesophageal reflux disease) Umbilical hernia without obstruction and without gangrene Surgical History Cholecystectomy Colonoscopy - MAC (~2014) Dilation and curettage EGD - MAC (~2014) Endometrial Ablation Ligation of fallopian tube S/P ventral herniorrhaphy (~06/02/18) umbilical hernia repair Family History Other Personal history of malignant neoplasm Social History Smoking/Tobacco Use Status: Never Smoking risk assessment performed?: Yes Alcohol Intake: never Drug use: Never Substance use type: does not use Do you feel safe at home: Yes Meds Home Medications and Allergies Home Medications Medication Instructions Recorded Confirmed Type omeprazole 20 mg PO HS 08/19/12 04/03/20 History Fish Oil 1 tab PO HS 05/18/14 04/03/20 History multivitamin [Daily Multi-Vitamin] 1 ea PO HS 05/18/14 04/03/20 History aspirin [Aspirin Childrens] 1 tab PO HS 04/12/18 04/03/20 History acetaminophen 650 mg PO QID PRN #20 tab 06/02/18 04/03/20 Rx ibuprofen 600 mg PO QID PRN #20 tab 06/02/18 04/03/20 Rx amoxicillin-pot clavulanate 1 tab PO BID 10 Days #20 tab 04/02/20 04/03/20 Rx [Augmentin] naproxen sodium [Aleve] 440 mg PO BID PRN 04/03/20 04/03/20 History Allergies Allergy/AdvReac Type Severity Reaction Status Date / Time cyclobenzaprine AdvReac Intermediate excessive Verified 04/03/20 13:59 sedatio Exam Const General: cooperative, healthy appearing and comfortable Nutritional Appearance: average body habitus Extrem Other: Details of the injury are difficult to appreciate as the laceration has been repaired of the tip of the left middle finger. There is a notable deformity of the left nail with gauze around the left nail itself. Intact extension and flexion of the DIP joint of the left middle finger. There is some mild areas of skin necrosis over the palmar aspect of the left middle fingertip. The fingertip itself is warm and well-perfused. Results Imaging Imaging Studies: X-ray of the left hand shows a very minor fracture over the tip of the middle phalanx. This is no oblique injury over the distal aspect of the distal phalanx. With minimal displacement of the bone, however, obvious displacement of the nail dorsally. Last Vital Signs Temp 36.5 C 04/03/20 14:00 Pulse 58 L 04/03/20 14:00 Resp 16 04/03/20 14:00 BP 122/55 L 04/03/20 14:00 Pulse Ox 100 04/03/20 14:00
[2020-04-03] MEDS: Lidocaine 1% Multi-Dose 50 ML VIAL (14:56)
[2020-04-03] MEDS: Sodium Bicarbonate 50 MEQ/50 ML VIAL (14:56)
[2020-04-03] MEDS: Acetaminophen 325 MG TAB 650 MG PO (16:03)
--- NOTE | 2020-04-03 20:38 | W.PM.OP ---
Date of service: 04/03/20 Time of Service: 15:38 Operative Note Operative Note DATE OF PROCEDURE: 04/03/20 PRE-OP DIAGNOSIS: Open LMF Distal Phalanx Fracture with Nailbed laceration POST-OP DIAGNOSIS: same PROCEDURE: Irrigation and debridement of open left middle finger phalanx fracture with nailbed repair SURGEON: Anjel Adrian ANESTHESIA: local ESTIMATED BLOOD LOSS: 5 PATHOLOGY: none sent TOURNIQUET TIME: 15 COMPLICATIONS: None Patient was transported to: same day Patient's condition: stable Indications: Anette suffered an open fracture to the left middle finger distal phalanx. I was called by her treating provider in the emergency department who was concerned about the nail. Given that the nail was displaced I recommend that this gets fixed sooner than later. I called Anette discussed over the phone. I also saw her this morning and reviewed the case with her. Given the displacement of the nail and its involvement of the nailbed, I recommend a nailbed repair with irrigation debridement. I discussed the risk of the procedure to include bleeding, infection, pain, stiffness, malunion, nonunion, nail deformity, need for repeat procedures. Despite these risks, she elected to proceed. Findings: There is an oblique laceration from proximal radial distal ulnar in the middle finger involving the nail bed. This was opened, debrided, irrigated. The sutures over the tip of the finger were left as a nicely reapproximated the skin of the very tip and pulp of the finger. The nailbed was repaired with skin glue and the previous nail was put in its place to keep the eponychial fold open. Procedure Description: Anette was greeted in the preoperative holding area where the correct side was identified and marked. The consent was reviewed with the patient and signed. All questions were answered. Anette was taken back to the operating room. The patient was placed into the supine position on the operating room table with the left arm on an arm board. All bony prominences were well padded. No prophylactic antibiotics were administered since this was a clean, elective hand surgical case. A digital block was performed from a palmar approach after prepping the skin with ChloraPrep and using 10 cc of 1% lidocaine buffered with sodium bicarbonate. The left arm was then prepped with Betadine and draped in a standard fashion with stockinette and extremity drape. A timeout to confirm correct identity, side and site, procedure, allergies, anesthesia, and medical concerns was performed. Digital block was assessed and noted to be complete. Therefore proceed with surgery. I remove the remainder of the nail which is tacked down with 1 suture in a very small attachment over the very distal and ulnar aspect of the finger. Hip was removed sharply and cleaned on the back table left in some dilute Betadine for later use. There were a few Vicryl sutures in the very distal and volar aspect of the left middle finger. I did leave these intact since they very nicely reapproximated the pulp and distal aspect of the finger. I then placed a [place] into the laceration was ran proximal ulnar to distal radial. Involve the nailbed running in the same pattern with some comminution and loss of tissue seen around the eponychial him of the ulnar aspect as well as within the ulnar aspect of the nailbed. This tissue was then debrided thoroughly. It was irrigated excessively. I then reapproximated the nailbed and held in place while skin glue was applied. This was cleaned up and around the nailbed. Once was completed the eponychium was elevated off of the underlying nail bed preparing the space for the nail. The nail was then inserted into the space and showed to be adequately reduced. I then used a 2-0 chromic to run through the eponychium and then through the nail securing the nail underneath eponychial fold. There is a small flap of eponychial tissue which I try to preserve but was really quite thin and macerated. I tempted to repair this but it would not hold the suture and therefore which is left in place and held down by pressure with petroleum gauze and the final dressing. Isis was cleaned up and dressed with Xeroform, 4 x 4, and tube gauze dressing. The patient tolerated the procedure well and was returned to the Same Day Surgery area in a stable condition suffering no known complication.
== END 2020-04-03 16:30 | disposition home or self-care (01) ==
LOC: SUR 13:26
PROVIDERS: PCP Nurse Practitioner Family; Visit Provider Student in an Organized Health Care Education/Training Program
PROC: (CPT 26055; principal; 2020-04-03 13:45)
DX: S61.313A Laceration without foreign body of left middle finger with damage to nail, initial encounter (principal); W31.2XXA Contact with powered woodworking and forming machines, initial encounter
CPT/HCPCS: 11760; NC

== ENCOUNTER 2020-06-04 16:16 | Emergency (ER) | payer MEDICAID, SELFPAY ==
[2020-06-04] VITALS (9 sets, daily range): BP systolic 133–142; BP diastolic 57–73; PULSE 61–72; RESP 13–20; TEMP 36.5; O2SAT 97–99
--- NOTE | 2020-06-04 16:15 | RT.EKG_ITS ---
APPROVED REPORT Exam: Resting ECG Patient Location: E HR:65 bpm ECG Measurements Heart Rate 65 AXIS IN 144 P 44 QRSd 94 QRS 16 QT 406 T 30 QTc 424 Conclusion Sinus rhythm...normal P axis, V-rate 60- 99 I have reviewed and interpreted ECG and agree with software generated interpretation.
--- NOTE | 2020-06-04 16:30 | DI.RAD_ITS ---
EXAM: XR CHEST 2V PA LATERAL CLINICAL HISTORY: chest pain. TECHNIQUE: 2D digital imaging was performed. COMPARISON: CR XR RIBS LT W PA LAT CHEST from 03/05/2020 FINDINGS: Heart size is normal. The mediastinum is not widened. Lungs are clear. No infiltrates nor pleural effusions. Again noted is evidence of previous rotator cuff shoulder surgery on the right side. IMPRESSION: No acute pulmonary findings. DATA REPOSITORY: RADIATION DOSE DELIVERED:
[2020-06-04] MEDS: Aspirin 81 MG CHEW 324 MG CH (16:50)
[2020-06-04 16:56] LABS: Abs Immature Grans 0.02 10^3/uL (0.0-0.06); Absolute Basophil Count 0.05 10^3/uL (0.0-0.2); Absolute Eosinophil Count 0.13 10^3/uL (0.0-0.7); Absolute Lymphocyte Count 2.31 10^3/uL (1.2-3.4); Absolute Monocyte Count 0.31 10^3/uL (0.1-0.8); Absolute Neutrophil Count 3.05 10^3/uL (1.2-6.7); Basophils % 0.9; Eosinophils % 2.2; HCT 44.3 % (36.0-46.0); HGB 14.7 g/dL (11.2-15.7); Immature Grans % 0.3; Lymphocytes % 39.4; MCH 28.3 pg (27.0-33.0); MCHC 33.2 % (32.0-36.0); MCV 85.4 fL (80-95); MPV 10.4 fL (8.0-11.0); Monocytes % 5.3; Neutrophils % 51.9; Nucleated RBC 0 %; Platelet Count 206 10^3/uL (130-400); RBC 5.19 10^6/uL (3.93-5.22); RDW 12.6 % (11.7-14.6); RDW-SD 39.2 fL; WBC 5.87 10^3/uL (4.4-10.8)
--- NOTE | 2020-06-04 17:06 | DI.VRAD_ITS ---
PROCEDURE INFORMATION: Exam: XR Chest, 2 Views Exam date and time: 06/04/2020 4:59 PM Age: 64 years old Clinical indication: Chest pain; Type not specified TECHNIQUE: Imaging protocol: XR of the chest Views: 2 views. COMPARISON: CR XR RIBS LT W PA LAT CHEST 03/05/2020 9:26 AM FINDINGS: Lungs: Unremarkable. No consolidation. Pleural spaces: Unremarkable. No pleural effusion. No pneumothorax. Heart/Mediastinum: Unremarkable. No cardiomegaly. Bones/joints: Unremarkable. IMPRESSION: No acute findings. Dictated and Authenticated by: Clyde Mayorga MD. Ordering:RUBI Garcia MD
[2020-06-04 17:08] LABS: ALT 37 U/L (14-59); AST 20 U/L (15-37); Albumin 3.6 g/dL (3.4-5.0); Alkaline Phosphatase 130 U/L (46-116); Anion Gap 7.5 mmol/L (3-11); BUN 13 mg/dL (7-18); Bilirubin, Total 0.4 mg/dL (0.2-1.0); CO2 27.5 mmol/L (21.0-32.0); CREATININE 0.8 mg/dL (0.55-1.02); Calcium 9.1 mg/dL (8.5-10.1); Chloride 106 mmol/L (98-107); Glucose 137 mg/dL (74-106); Potassium 3.5 mmol/L (3.5-5.1); Sodium 141 mmol/L (136-145); Total Protein 6.9 g/dL (6.4-8.2)
[2020-06-04 17:09] LABS: Troponin I < 0.05 ng/mL (<0.06)
--- NOTE | 2020-06-04 17:31 | ED.GENADUL_ITS ---
Discharge Plan Disposition Patient Disposition: HOME Condition: Good Discharge Details Clinical Impression: Chest pain Primary Care Provider: Wendy Cook ED Provider: Radha Soliman Home Meds and New Rx's Prescriptions: No Action multivitamin [Daily Multi-Vitamin] 1 EACH tablet 1 ea PO HS RF: 0 FISH OIL 1 tab PO HS RF: 0 omeprazole 20 MG capsule,delayed release(DR/EC) 20 mg PO HS RF: 0 aspirin [Aspirin Childrens] 81 mg Tablet,Chewable 1 tab PO HS RF: 0 acetaminophen 325 mg tablet 650 mg PO QID PRN (Reason: pain) Qty: 20 RF: 0 ibuprofen 600 mg tablet 600 mg PO QID PRN (Reason: pain) Qty: 20 RF: 0 naproxen sodium [Aleve] 220 mg Tablet 440 mg PO BID PRNRF: 0 Discharge Instructions Instructions: Chest Pain (ED) Additional Instructions: Follow-up with your primary care physician at your scheduled appointment I have been ordered an outpatient stress test for you Continue taking your 81mg aspirin as prescribed Discharge Data Discharge Date/Time-TO BE ENTERED AT DEPARTURE: 06/04/20 20:35 Medical Decision Making Heart score of 3 She negative troponin with 12 hours of symptoms, reassuring Repeat EKG without acute abnormality Diagnostic labs otherwise reassuring She will take baby aspirin daily Outpatient stress test ordered Discharge home pain-free need to resolution Given the threshold to return should she have new or worsening complaints Aside from age, clinically low suspicion for pulmonary embolism Differential Diagnosis Differential Diagnosis: Pulmonary embolism, angina, ST elevation MO, anxiety Medical Records Medical records reviewed: Yes I reviewed the patient's medical records. HPI 64-year-old female presents with chest pain which started at 11:00 today. She has had this intermittent pain over the course of the past several weeks. She denies any shortness of breath. She denies nausea or vomiting. She states that they have been under a great deal of anxiety. She denies any exertional symptoms. She denies any pleuritic pain, recent flights, surgeries, long drives, calf pain or swelling. General Date/Time Provider Initiated Documentation: 06/04/20 16:24 . Related Data Home Medications Medication Instructions Recorded Confirmed omeprazole 20 mg PO HS 08/19/12 06/04/20 Fish Oil 1 tab PO HS 05/18/14 06/04/20 multivitamin [Daily Multi-Vitamin] 1 ea PO HS 05/18/14 06/04/20 aspirin [Aspirin Childrens] 1 tab PO HS 04/12/18 06/04/20 acetaminophen 650 mg PO QID PRN #20 tab 06/02/18 06/04/20 ibuprofen 600 mg PO QID PRN #20 tab 06/02/18 06/04/20 naproxen sodium [Aleve] 440 mg PO BID PRN 04/03/20 06/04/20 Previous Rx's Medication Instructions Recorded acetaminophen 650 mg PO QID PRN #20 tab 06/02/18 ibuprofen 600 mg PO QID PRN #20 tab 06/02/18 Allergies Allergy/AdvReac Type Severity Reaction Status Date / Time cyclobenzaprine AdvReac Intermediate excessive Verified 04/30/20 11:23 sedatio General Stated Complaint: Chest Pain KIET: 2 Review of Systems Narrative: Review of systems negative x7 aside from where indicated in HPI, specifically no calf pain or swelling, fever, chills PFSH Medical History (Updated 06/04/20 @ 20:27 by DINA Gonzalez) GERD (gastroesophageal reflux disease) Umbilical hernia without obstruction and without gangrene Surgical History (Updated 04/30/20 @ 12:52 by DINA Bender) Cholecystectomy Colonoscopy - MAC (~2014) Dilation and curettage EGD - MAC (~2014) Endometrial Ablation Ligation of fallopian tube Nailbed laceration, finger S/P repair: 04/03/2020 S/P ventral herniorrhaphy (~06/02/18) umbilical hernia repair Family History Other Personal history of malignant neoplasm Social History Smoking/Tobacco Use Status: Never Smoking risk assessment performed?: Yes Alcohol Intake: never Drug use: Never Substance use type: does not use Do you feel safe at home: Yes Exam Const General: cooperative and comfortable Orientation: alert and oriented x3 Chest Chest: normal inspection of the chest Other: Mild reproducible chest wall tenderness Resp Effort & Inspection: normal respiratory effort Cardio Rate: regular rate Rhythm: regular rhythm GI Inspection: normal to inspection Auscultation: normal bowel sounds Skin General skin exam: no rashes or lesions noted Neuro General: patient alert and patient oriented x3 Extrem Other: No calf pain or swelling Course Vital Signs Vital signs: Vital Signs Temperature 36.5 C 06/04/20 16:18 Pulse 71 06/04/20 16:18 Respiratory Rate 20 06/04/20 16:18 Blood Pressure 133/71 06/04/20 16:18 Pulse Oximetry 99 06/04/20 16:18 Temperature 36.5 C 06/04/20 16:18 Temperature Source Skin 06/04/20 16:18 Pulse 64 06/04/20 16:47 Pulse 68 06/04/20 16:50 Respiratory Rate 18 06/04/20 16:50 Respiratory Effort Non-Labored 06/04/20 16:24 Respiratory Depth Normal 06/04/20 16:24 Respiratory Pattern Normal 06/04/20 16:24 Blood Pressure 137/71 06/04/20 16:47 Blood Pressure Mean 86 06/04/20 16:47 Blood Pressure Position Supine 06/04/20 16:18 Pulse Oximetry 98 06/04/20 16:50 Oxygen Delivery Method Room Air 06/04/20 16:18 Oxygen Flow Rate 0 06/04/20 16:18 Pain Level 4 06/04/20 16:24 Lab/Test Results Lab/Test Results: Laboratory Tests Range/Units 06/04/20 06/04/20 16:33 16:33 WBC (4.4-10.8) 10^3/uL 5.87 RBC (3.93-5.22) 10^6/uL 5.19 Hgb (11.2-15.7) g/dL 14.7 Hct (36.0-46.0) % 44.3 MCV (80-95) fL 85.4 MCH (27.0-33.0) pg 28.3 MCHC (32.0-36.0) % 33.2 RDW (11.7-14.6) % 12.6 Plt Count (130-400) 10^3/uL 206 MPV (8.0-11.0) fL 10.4 Immature Gran % 0.3 Neutrophils % 51.9 Lymphocytes % 39.4 Monocytes % 5.3 Eosinophils % 2.2 Basophils % 0.9 Nucleated RBC % % 0 Absolute Neutrophils (1.2-6.7) 10^3/uL 3.05 Absolute Lymphocytes (1.2-3.4) 10^3/uL 2.31 Absolute Monocytes (0.1-0.8) 10^3/uL 0.31 Absolute Eosinophils (0.0-0.7) 10^3/uL 0.13 Absolute Basophils (0.0-0.2) 10^3/uL 0.05 Sodium (136-145) mmol/L 141 Potassium (3.5-5.1) mmol/L 3.5 Chloride (98-107) mmol/L 106 Carbon Dioxide (21.0-32.0) mmol/L 27.5 Anion Gap (3-11) mmol/L 7.5 BUN (7-18) mg/dL 13 Creatinine (0.55-1.02) mg/dL 0.8 Estimated GFR/1.73 m2 (mL/min/1.73m2) >= 60.00 Glucose (74-106) mg/dL 137 H Calcium (8.5-10.1) mg/dL 9.1 Magnesium (1.8-2.4) mg/dL 2.0 Total Bilirubin (0.2-1.0) mg/dL 0.4 AST (15-37) U/L 20 ALT (14-59) U/L 37 Alkaline Phosphatase (46-116) U/L 130 H Troponin I (<0.06) ng/mL < 0.05 Total Protein (6.4-8.2) g/dL 6.9 Albumin (3.4-5.0) g/dL 3.6
--- NOTE | 2020-06-04 17:45 | RT.EKG_ITS ---
APPROVED REPORT Exam: Resting ECG Patient Location: E HR:64 bpm ECG Measurements Heart Rate 64 AXIS FL 153 P 30 QRSd 89 QRS 11 QT 431 T 21 QTc 439 Conclusion Sinus rhythm...normal P axis, V-rate 60- 99 Atrial premature complex...SV complex w/ short R-R interval I have reviewed and interpreted ECG and agree with software generated interpretation.
[2020-06-04 20:10] LABS: Troponin I < 0.05 ng/mL (<0.06)
[2020-06-06 12:55] LABS: COVID-19 RT-PCR UVMMC Result Negative (Negative)
== END 2020-06-04 20:35 | disposition home or self-care (01) ==
PROVIDERS: Emergency Provider Physician Assistant; PCP Nurse Practitioner Family
DX: R07.89 Other chest pain (principal); Z20.822 Contact with and (suspected) exposure to COVID-19
CPT/HCPCS: 80053; 93005; 99284; U0003; 71046; 83735; 84484; 85025; 93010; 99283

== ENCOUNTER 2020-06-07 01:01 | Outpatient (CLI) | payer MEDICAID, SELFPAY ==
--- NOTE | 2020-06-07 08:00 | ETT_ITS ---
APPROVED REPORT Exam: Exercise Treadmill Patient Location: Out-Patient Room/Bed: Stress Nurse: Radha Carmichael RN Ordering Provider:OCHOA BRYANT, Contact Number: [phone] BMI: 25.05 Baseline Rhythm: Sinus Rhythm Indications: Heavy chest pain radiating to left arm with varying intensity (max 8/10) over 4-5 days. Patient with increased stress recently. Medical History Medical History: GERD, Panic attacks. Cardiac Medications: Omeprazole, Fish oil, Aspirin., Allergies: Cyclobenzaprine Cardiac Risk Factors: FHX of CAD Previous Cardiac Procedures: None. Pretest Chest Pain Characteristics: None. Exercise History: Physically active Physical Disabilities: None. Lung Sounds: Clear to auscultation Heart Sounds: Regular Stress Test Details Test: Exercise stress testing was performed using a Gunner protocol. Rest Stress HR Resting HR Supine: 62 bpm Max Heart Rate (APMHR): 158 bpm Resting HR Standin bpm Target HR (85% APMHR): 134 bpm Max HR Achieved: 160 bpm % of APMHR: 101 Recovery HR: 73 bpm HR response to stress: Normal HR response to stress BP Resting BP Supine: 128/70 mmHg Resting BP Standin/74 mmHg Max BP: 172/68 mmHg Recovery BP: 128/72 mmHg BP response to stress: Normal blood pressure response to stress. ECG Resting ECG: Sinus Rhythm Ectopy: None Stress ECG: Sinus Tachycardia ST Change: Upsloping ST depression Lead(s): V4, V5 Maximum ST Deviation: 0.5 mm Arrhythmia: occasional PVC Recovery ECG: Sinus Rhythm Recovery ST Change: No significant ST segment changes noted Recovery Arrhythmia: occasional PVC Clinical Reason for Termination: Fatigue Stress Symptoms: General Fatigue Exercise duration: 9 min07 sec Highest Stage Reached: Stage 4: 4.2 mph at 16% grade. Exercise capacity: 10.31 METs Schaefer Treadmill Score: 8.2 Rate Pressure Product: [id number] Stress ECG Conclusion 1. The resting electrocardiogram was within normal limits. The patient exercised on the Gunner protoc ol and completed a workload of 10.31 METS, stopping due to fatigue 2. Normal heart rate and blood pressure response to exercise. The patient achieved 100% of predicted heart rate for age 3. At peak exercise there was J-point depression and upsloping ST segments notably in the anterolater al leads. These did not meet criteria for myocardial ischemia 4. Occasional ventricular ectopic beats were noted Schaefer Treadmill Score is 8.2 which is Low risk. Stress Test Summary STAGE Time (mins) Speed (mph) Grade (%) HR BP SYMPTOMS METS Supine 62 128/70 Standing 79 118/74 1 3 1.7 10 141 140/72 4.6 2 6 2.5 12 146 166/70 7 3 9 3.4 14 158 172/68 10.2 1 min recovery 112 168/70 3 min recovery 82 150/72 6 min recovery 73 128/72 Patient reports dizziness after stopping exercise. Resolved with rest.
== END 2020-06-07 01:02 ==
LOC: DI 01:01
PROVIDERS: PCP Nurse Practitioner Family; Visit Provider Nurse Practitioner Family
DX: R07.9 Chest pain, unspecified (principal); Z82.49 Family history of ischemic heart disease and other diseases of the circulatory system
CPT/HCPCS: 93017

== ENCOUNTER 2020-10-29 07:08 | Day surgery (SDC) | payer MEDICAID, SELFPAY ==
--- NOTE | 2020-10-29 06:32 | W.COLOREPORT ---
Date of service: 10/29/20 Time of Service: 08:35 Colonoscopy Report Date of procedure: 10/29/20 Pre-op diagnosis general: Family History of Colon Cancer Post-op diagnosis procedure note: same Procedure: Colonoscopy Surgeon: Desi Dean Anesthesia Type: General:No Airway (ASA 2/Seymour Dominguez, SALOMÓN) Estimated blood loss (mL): 0 Pathology: none sent Complications: None Disposition: same day Indications: The patient is here for Colonoscopy pre-op. Her last screening was in 2014 and was unremarkable. She has a family history of colon cancer in her father. She has not had any bowel habit changes. -Discussed colonoscopy bowel prep as well as the procedure. Discussed possible complications of the procedure to include bleeding, pain, perforation, missed small lesion/polyp, sore throat, aspiration and adverse reaction to the medications. Questions were answered to patient?s satisfaction. No guarantees were implied or given. Prep: Miralax/Dulcolax Procedure Start Time: 08:35 Procedure End Time: 08:51 Retraction Time: 10 minutes Findings: Normal colonoscopy Procedure Description: After informed consent was obtained the patient was taken to the procedure room and placed in a left decubitous position. Monitors were applied and a time out was done. The patients name, date of , procedure, allergies to medications and metal in their body was reviewed. The patient was then sedated. Once sedated and comfortable a rectal exam was done. External exam was normal. Internal exam revealed a normal sphincter tone and no palpable masses. The scope was then introduced and retro-flexed. No internal hemorrhoids, polyps or masses were identified on retro-flexion. The scope was then advanced to the cecum without difficulty. The ileocecal vlave and appendiceal orifice were identified. The prep was good. The scope was then slowly retracted over 10 minutes back into the rectum. There were no polyps and no diverticulosis noted. The scope was removed and the patient was woken up and taken back to Same day surgery in stable condition. The patient tolerated the procedure well and there were no immediate complications. Follow up: The patient should follow up in 5 years unless they develop changes in bowel habits or other new gastrointestinal complaints.
--- NOTE | 2020-10-29 06:39 | W.PM.DSUDISC ---
Discharge Plan Disposition Patient Disposition: HOME Condition: Good Discharge Details Reason For Visit: Colonoscopy Attending Provider: Desi Dean Primary Care Provider: Wendy Cook Home Meds and New Rx's Prescriptions: Continued multivitamin [Daily Multi-Vitamin] 1 EACH tablet 1 ea PO HS RF: 0 FISH OIL 1 tab PO HS RF: 0 omeprazole 20 MG capsule,delayed release(DR/EC) 20 mg PO HS RF: 0 aspirin [Aspirin Childrens] 81 mg Tablet,Chewable 1 tab PO HS RF: 0 acetaminophen 325 mg tablet 650 mg PO QID PRN (Reason: pain) Qty: 20 RF: 0 ibuprofen 600 mg tablet 600 mg PO QID PRN (Reason: pain) Qty: 20 RF: 0 naproxen sodium [Aleve] 220 mg Tablet 440 mg PO BID PRNRF: 0 Discharge Instructions Additional Instructions: Findings: Normal colonoscopy Follow up: 5 years Please call if you develop: fevers >101.5 Nausea or Vomiting Abdominal pain that is not transient Rectal bleeding that is more then a tbsp A hard abdomen and inability to pass gas DAY SURGERY UNIT POST ENDOSCOPY INSTRUCTIONS Instructions for everyone who is given Anesthesia: For your safety, please do the following for the next 24 Hours: a. Do not drive or operate dangerous equipment b. Do not drink alcohol beverages or use any recreational drugs for the first 24 hours or while taking pain medications. The medications in your body may have a reaction that can be dangerous. c. Do not make any important decisions or sign any important papers 1. Generally there are no restrictions on your activity after a day or so has gone by, but you may feel a bit fatigued for a few days. 2. After you arrive home you may have a light meal and return to a normal diet as you can tolerate it without feeling sick to your stomach. 3. After surgery, you may feel pain or discomfort. This should be only transient, but if it persists please contact your doctor. 4. If there are any questions regarding the findings of your procedure, please feel free to contact your doctor. 6. If you are unable to contact your doctor with a problem, contact the hospital at [phone]. 7. Continue all your regular medications unless directed otherwise. I understand the above instructions and have no questions. Signature of Patient or Responsible Adult Escort Date/Time Name of Responsible Adult Escort Signature of Nurse Date/Time Activity:: Activity as Tolerated Diet:: As Tolerated Discharge Orders Discharge Orders: Discharge Order (Routine); Ordered 10/29/20 Ordered By: Desi Dean
[2020-10-29 07:30] VITALS: BP 123/77; PULSE 57; RESP 17; TEMP 36.3; O2SAT 98
[2020-10-29] MEDS: Lactated Ringers 1,000 ML 80 ML IV (08:06)
--- NOTE | 2020-10-29 08:15 | W.ANESPRE ---
General Info Date of Service Date Performed: 10/29/20 Height: 5 ft 7 in Weight: 72.1 kg Body Mass Index (BMI): 24.9 Surgical Procedure: Operation Date: 10/29/20 08:20 Proposed Procedures Side Surgeon p Charles Dean MD Meds Allergies and Home Medications Allergies Allergy/AdvReac Type Severity Reaction Status Date / Time acetaminophen [From Percocet] Allergy Intermediate unknown Verified 10/29/20 07:30 oxycodone [From Percocet] Allergy Intermediate unknown Verified 10/29/20 07:30 tramadol Allergy Mild unknown Verified 10/29/20 07:30 cyclobenzaprine AdvReac Intermediate excessive Verified 10/29/20 07:30 sedatio Home Medication Medication Instructions Recorded omeprazole 20 mg PO HS 08/19/12 Fish Oil 1 tab PO HS 05/18/14 multivitamin [Daily Multi-Vitamin] 1 ea PO HS 05/18/14 aspirin [Aspirin Childrens] 1 tab PO HS 04/12/18 acetaminophen 650 mg PO QID PRN #20 tab 06/02/18 ibuprofen 600 mg PO QID PRN #20 tab 06/02/18 naproxen sodium [Aleve] 440 mg PO BID PRN 04/03/20 Current Visit Medications: Current Medications Generic Name Dose Route Start Last Admin Trade Name Freq PRN Reason Stop Dose Admin Hyoscyamine Sulfate 0.125 mg 10/29/20 06:39 Hyoscyamine 0.125 Mg Sl/Oral/Chew SL DIRECTED PRN Ringer's Solution 1,000 mls @ 80 mls/hr 10/29/20 06:00 10/29/20 08:06 IV 10/29/20 23:59 80 mls/hr INFUSION ELHAM Administration IV Miscellaneous Supplies 1 each 10/29/20 06:00 Iv Access IV 10/29/20 23:59 DIRECTED ELHAM Ondansetron HCl 4 mg 10/29/20 06:39 Ondansetron 4 Mg/2 Ml Vial IVP Q4H PRN PRN Nausea / Vomiting Sodium Chloride 0 ml 10/29/20 06:00 Normal Saline Flush 10 Ml Syr IV 10/29/20 23:59 PRN PRN Sodium Chloride 0 ml 10/29/20 06:00 Normal Saline 10 Ml Vial IJ 10/29/20 23:59 DIRECTED PRN Sterile Water 0 ml 10/29/20 06:00 Water,Injection,Sterile 10 Ml Vial IJ 10/29/20 23:59 DIRECTED PRN PFSH Active Problems Active Problems: Problem Status Onset Code Hyperlipidemia E78.5 Reflux esophagitis K21.00 Depression F32.9 Family history of breast cancer Z80.3 Anemia D64.9 Chronic pain G89.29 Lumbago M54.5 Anxiety F41.9 Rib pain on left side R07.81 Stress at home F43.9 Family history of colon cancer Z80.0 Screening for colon cancer Z12.11 Nailbed laceration, finger Open fracture of phalanx of left middle finger S62.603B Umbilical hernia without obstruction and without gangrene K42.9 S/P ventral herniorrhaphy ~06/02/18 Z98.890, Z87.19 Umbilical hernia K42.9 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 Injury of head 06/27/13 S09.90XA Sensory hearing loss, 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 Tinnitus 06/27/13 H93.19 Abdominal pain, RUQ R10.11 Medical History Medical History GERD (gastroesophageal reflux disease) Umbilical hernia without obstruction and without gangrene Surgical History Surgical History Cholecystectomy Colonoscopy - MAC (~2014) Dilation and curettage EGD - MAC (~2014) Endometrial Ablation Ligation of fallopian tube Nailbed laceration, finger S/P repair: 04/03/2020 S/P ventral herniorrhaphy (~06/02/18) umbilical hernia repair Tobacco Smoking/Tobacco Use Status: Never Alcohol Alcohol Intake: never Substance Use Substance use: Never Substance use type: does not use Vital Signs and Lab Results Vital Signs Most Recent Vital Signs in EMR: Most Recent Vital Signs Temp Pulse Resp BP Pulse Ox 36.3 C L 57 L 17 123/77 98 10/29/20 07:30 10/29/20 07:30 10/29/20 07:30 10/29/20 07:30 10/29/20 07:30 Lab Results Blood Type / Crossmatch: No Data to Display Complete Blood Count: No Data to Display Complete Metabolic Panel: No Data to Display Liver Function Panel: No Data to Display Coagulation Panel: No Data to Display Cardiac Panel: No Data to Display Arterial Blood Gas: No Data to Display Venous Blood Gas: No Data to Display Pancreas Panel: No Data to Display Thyroid Panel: No Data to Display Infectious Disease: No Data to Display Blood Cultures: No Data to Display Toxicology Panel: No Data to Display
--- NOTE | 2020-10-29 08:18 | W.ANESPRE ---
General Info Date of Service Date Performed: 10/29/20 Height: 5 ft 7 in Weight: 72.1 kg Body Mass Index (BMI): 24.9 Surgical Procedure: Operation Date: 10/29/20 08:20 Proposed Procedures Side Surgeon p Charles Dean MD Meds Allergies and Home Medications Allergies Allergy/AdvReac Type Severity Reaction Status Date / Time acetaminophen [From Percocet] Allergy Intermediate unknown Verified 10/29/20 07:30 oxycodone [From Percocet] Allergy Intermediate unknown Verified 10/29/20 07:30 tramadol Allergy Mild unknown Verified 10/29/20 07:30 cyclobenzaprine AdvReac Intermediate excessive Verified 10/29/20 07:30 sedatio Home Medication Medication Instructions Recorded omeprazole 20 mg PO HS 08/19/12 Fish Oil 1 tab PO HS 05/18/14 multivitamin [Daily Multi-Vitamin] 1 ea PO HS 05/18/14 aspirin [Aspirin Childrens] 1 tab PO HS 04/12/18 acetaminophen 650 mg PO QID PRN #20 tab 06/02/18 ibuprofen 600 mg PO QID PRN #20 tab 06/02/18 naproxen sodium [Aleve] 440 mg PO BID PRN 04/03/20 Current Visit Medications: Current Medications Generic Name Dose Route Start Last Admin Trade Name Freq PRN Reason Stop Dose Admin Hyoscyamine Sulfate 0.125 mg 10/29/20 06:39 Hyoscyamine 0.125 Mg Sl/Oral/Chew SL DIRECTED PRN Ringer's Solution 1,000 mls @ 80 mls/hr 10/29/20 06:00 10/29/20 08:06 IV 10/29/20 23:59 80 mls/hr INFUSION ELHAM Administration IV Miscellaneous Supplies 1 each 10/29/20 06:00 Iv Access IV 10/29/20 23:59 DIRECTED ELHAM Ondansetron HCl 4 mg 10/29/20 06:39 Ondansetron 4 Mg/2 Ml Vial IVP Q4H PRN PRN Nausea / Vomiting Sodium Chloride 0 ml 10/29/20 06:00 Normal Saline Flush 10 Ml Syr IV 10/29/20 23:59 PRN PRN Sodium Chloride 0 ml 10/29/20 06:00 Normal Saline 10 Ml Vial IJ 10/29/20 23:59 DIRECTED PRN Sterile Water 0 ml 10/29/20 06:00 Water,Injection,Sterile 10 Ml Vial IJ 10/29/20 23:59 DIRECTED PRN PFSH Active Problems Active Problems: Problem Status Onset Code Hyperlipidemia E78.5 Reflux esophagitis K21.00 Depression F32.9 Family history of breast cancer Z80.3 Anemia D64.9 Chronic pain G89.29 Lumbago M54.5 Anxiety F41.9 Rib pain on left side R07.81 Stress at home F43.9 Family history of colon cancer Z80.0 Screening for colon cancer Z12.11 Nailbed laceration, finger Open fracture of phalanx of left middle finger S62.603B Umbilical hernia without obstruction and without gangrene K42.9 S/P ventral herniorrhaphy ~06/02/18 Z98.890, Z87.19 Umbilical hernia K42.9 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 Injury of head 06/27/13 S09.90XA Sensory hearing loss, 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 Tinnitus 06/27/13 H93.19 Abdominal pain, RUQ R10.11 Medical History Medical History GERD (gastroesophageal reflux disease) Umbilical hernia without obstruction and without gangrene Surgical History Surgical History Cholecystectomy Colonoscopy - MAC (~2014) Dilation and curettage EGD - MAC (~2014) Endometrial Ablation Ligation of fallopian tube Nailbed laceration, finger S/P repair: 04/03/2020 S/P ventral herniorrhaphy (~06/02/18) umbilical hernia repair Tobacco Smoking/Tobacco Use Status: Never Alcohol Alcohol Intake: never Substance Use Substance use: Never Substance use type: does not use Vital Signs and Lab Results Vital Signs Most Recent Vital Signs in EMR: Most Recent Vital Signs Temp Pulse Resp BP Pulse Ox 36.3 C L 57 L 17 123/77 98 10/29/20 07:30 10/29/20 07:30 10/29/20 07:30 10/29/20 07:30 10/29/20 07:30 Lab Results Blood Type / Crossmatch: No Data to Display Complete Blood Count: No Data to Display Complete Metabolic Panel: No Data to Display Liver Function Panel: No Data to Display Coagulation Panel: No Data to Display Cardiac Panel: No Data to Display Arterial Blood Gas: No Data to Display Venous Blood Gas: No Data to Display Pancreas Panel: No Data to Display Thyroid Panel: No Data to Display Infectious Disease: No Data to Display Blood Cultures: No Data to Display Toxicology Panel: No Data to Display Imaging and Studies Imaging and Studies EKG Summary: 06/04/20 Conclusion Sinus rhythm...normal P axis, V-rate 60- 99 Atrial premature complex...SV complex w/ short R-R interval I have reviewed and interpreted ECG and agree with software generated interpretation. Stress Test Summary: 06/07/20 Stress ECG Conclusion 1. The resting electrocardiogram was within normal limits. The patient exercised on the Gunner protocol and completed a workload of 10.31 METS, stopping due to fatigue 2. Normal heart rate and blood pressure response to exercise. The patient achieved 100% of predicted heart rate for age 3. At peak exercise there was J-point depression and upsloping ST segments notably in the anterolateral leads. These did not meet criteria for myocardial ischemia 4. Occasional ventricular ectopic beats were noted Schaefer Treadmill Score is 8.2 which is Low risk. Anesthesia Assessment and Plan Anesthesia History Personal History: No History of Anesthesia Complications Family History: No Family History of Anesthesia Complications Exercise Tolerance Exercise Tolerance: Metabolic Equivalents>4 Pertinent Negatives Pertinent Negatives: No Major Cardiovascular Symptoms or Complaints, No Major Pulmonary Symptoms or Complaints and No History of CVA/TIA Cardiac & Pulmonary Exam Cardiac Exam: Normal S1/S2 Heart Sounds Pulmonary Exam: Clear Bilateral Breath Sounds Airway Exam Known Difficult Airway: No Mallampati Class: 2 Mouth Opening: Normal (> 3cm) Thyromental Distance: Greater than 3 cm Neck Range of Motion: Full ROM Neck Circumference: Normal Teeth Condition: Normal Dentition Airway Comments: Top left crown ASA Classification ASA Score: ASA 2 Emergency Case?: No NPO Status NPO Status: NPO Clears >2 hours, Solids >8 hours Anesthesia Plan Resuscitation Status: Full Code Anesthesia Technique: General Anesthesia Airway Planned: Natural Airway Monitors Used: Standard Monitors
[2020-10-29 08:24] VITALS: BMI 24.9
[2020-10-29 09:01] VITALS: BP 140/73; PULSE 69; RESP 16; TEMP 36; O2SAT 98
--- NOTE | 2020-10-29 09:03 | W.ANESPOSTOP ---
Postoperative Evaluation Date, Time and Location Date Performed: 10/29/20 Time Performed: 09:03 Patient Location: Day Surgery Unit Vital Signs Most Recent Imported Vital Signs: Most Recent Vital Signs Temp Pulse Resp BP Pulse Ox 36.3 C L 57 L 17 123/77 98 10/29/20 07:30 10/29/20 07:30 10/29/20 07:30 10/29/20 07:30 10/29/20 07:30 Pain Score Most Recent Pain Score: Most Recent Pain Score Pain Level 0 10/29/20 07:30 Assessment Mental Status: Awake (Alert & Oriented to Patient Baseline) Airway and Respiratory Function: Patent airway with normal (patient baseline) respiratory exam Cardiovascular Function: Hemodynamically Stable Hydration Status: Adequately Hydrated Nausea & Vomiting: No Nausea or Vomiting Pain: Pt. Denies Any Pain Peripheral Nerve Block: Patient did not receive a nerve block
== END 2020-10-29 10:20 | disposition home or self-care (01) ==
LOC: SUR 07:08
PROVIDERS: PCP Nurse Practitioner Family; Visit Provider Surgery
PROC: 0DJD8ZZ Inspection of Lower Intestinal Tract, Via Natural or Artificial Opening Endoscopic (ICD-10-PCS; CPT 45378; principal; 2020-10-29 08:15)
DX: Z12.11 Encounter for screening for malignant neoplasm of colon (principal); Z80.0 Family history of malignant neoplasm of digestive organs
CPT/HCPCS: 45378; J2001

== ENCOUNTER 2020-12-19 02:05 | Outpatient (CLI) | payer MEDICAID, SELFPAY ==
--- NOTE | 2020-12-19 | DI.RAD_ITS ---
Exam(s) XR SACRUM COCCYX XR HIP RT COMPLETE AP PELVIS EXAM: XR HIP RT COMPLETE AP PELVIS INDICATION: RT HIP PAIN, M25.551, ? FX OR OTHER ACUTE ISSUE. COMPARISON: CR XR HIP LT COMPLETE AP PELVIS from 03/04/2019 CR XR SACRUM COCCYX from 12/19/2020 TECHNIQUE: 2D digital imaging was performed. FINDINGS: There is no evidence fracture or dislocation. there is no gross evidence a lytic or blastic bony les ion. There is now moderate to severe narrowing of the right hip joint space, periarticular spurring and subchondral cyst formation on both sides of the joint. This has progressed since the previous ex am which showed only mild degenerative changes. The left hip shows mild degenerative changes, simila r to the previous exam. There is narrowing of the L4-5 disc space. There is mild spurring at the SI joints. The sacrum is partially obscured by stool and bowel gas. No fracture is identified. IMPRESSION: Moderate to severe degenerative changes of the right hip, worsening when compared with the previous e xam. No evidence of fracture. DATA REPOSITORY: RADIATION DOSE DELIVERED:
== END 2020-12-19 02:25 ==
PROVIDERS: PCP Nurse Practitioner Family; Visit Provider Nurse Practitioner Family
DX: M25.551 Pain in right hip (principal); M16.11 Unilateral primary osteoarthritis, right hip
CPT/HCPCS: 72220; 73502

== ENCOUNTER 2021-02-27 09:22 | Outpatient (REF) | payer MEDICAID, SELFPAY ==
[2021-02-27 14:32] LABS: HCT 47.2 % (36.0-46.0); HGB 15.3 g/dL (11.2-15.7); MCHC 32.4 % (32.0-36.0); MCV 86.3 fL (80-95); MPV 11.4 fL (8.0-11.0); Platelet Count 190 10^3/uL (130-400); RBC 5.47 10^6/uL (3.93-5.22); RDW 11.9 % (11.7-14.6); RDW-SD 37.5 fL; WBC 5.21 10^3/uL (4.4-10.8)
[2021-02-27 15:12] LABS: Anion Gap 7.5 mmol/L (3-11); BUN 16 mg/dL (7-18); CO2 29.5 mmol/L (21.0-32.0); CREATININE 0.8 mg/dL (0.55-1.02); Calcium 9.6 mg/dL (8.5-10.1); Calculated LDL 139 mg/dL (<100); Chloride 109 mmol/L (98-107); Cholesterol 225 mg/dL (<200); Glucose 87 mg/dL (74-106); HDL Cholesterol 76 mg/dL (40-60); Potassium 4.7 mmol/L (3.5-5.1); Sodium 146 mmol/L (136-145); Triglyceride 50 mg/dL (<150); Vitamin B12 903 pg/mL (193-986)
== END 2021-02-27 09:23 | disposition home or self-care (01) ==
LOC: NCHCN 09:22
PROVIDERS: PCP Nurse Practitioner Family; Visit Provider Nurse Practitioner Family
DX: Z00.00 Encounter for general adult medical examination without abnormal findings (principal)
CPT/HCPCS: 80048; 80061; 85027; 82607; 83735

== ENCOUNTER 2021-02-27 13:30 | Outpatient (CLI) | payer MEDICAID, SELFPAY ==
--- NOTE | 2021-02-27 13:15 | DI.RAD_ITS ---
Exam(s) XR PELVIS AP EXAM: XR PELVIS AP CLINICAL HISTORY: pre op R JAIME TECHNIQUE: COMPARISON: CR XR HIP RT COMPLETE AP PELVIS from 12/19/2020 FINDINGS: Single AP view was obtained with template marker ball. There is severe loss of the cartilaginous rowan nt space of the right hip. There is subchondral sclerosis of the acetabulum and femoral head with cy st formation also present particularly in the acetabulum. There are moderate marginal osteophytes of the acetabulum and femoral head. IMPRESSION: severe DJD right hip. Moderate DJD left hip noted as well. RADIATION DOSE DELIVERED: Total DLP
== END 2021-02-27 13:31 | disposition home or self-care (01) ==
LOC: DIORS 13:31
PROVIDERS: PCP Nurse Practitioner Family; Referring Provider Nurse Practitioner Family; Visit Provider Physician Assistant
DX: M25.551 Pain in right hip (principal); M16.31 Unilateral osteoarthritis resulting from hip dysplasia, right hip
CPT/HCPCS: 72170

== ENCOUNTER 2021-03-11 02:52 | Outpatient (CLI) | payer MEDICAID, SELFPAY ==
[2021-03-11 08:49] LABS: HCT 46.1 % (36.0-46.0); HGB 15.2 g/dL (11.2-15.7); MCH 28.4 pg (27.0-33.0); MPV 10.3 fL (8.0-11.0); Platelet Count 177 10^3/uL (130-400); RBC 5.36 10^6/uL (3.93-5.22); RDW 12.1 % (11.7-14.6); RDW-SD 38.1 fL; WBC 5.14 10^3/uL (4.4-10.8)
[2021-03-11 09:25] LABS: BUN 17 mg/dL (7-18); CREATININE 0.8 mg/dL (0.55-1.02); Calcium 9.8 mg/dL (8.5-10.1); Chloride 108 mmol/L (98-107); Glucose 97 mg/dL (74-106); Potassium 5.1 mmol/L (3.5-5.1); Sodium 143 mmol/L (136-145)
[2021-03-11 10:57] LABS: Source Nasal/Nares
[2021-03-11 13:34] LABS: COVID-19 PCR Negative (Negative)
== END 2021-03-11 02:53 | disposition home or self-care (01) ==
LOC: LBO 02:52
PROVIDERS: PCP Nurse Practitioner Family; Visit Provider Student in an Organized Health Care Education/Training Program
DX: Z20.822 Contact with and (suspected) exposure to COVID-19 (principal); Z01.818 Encounter for other preprocedural examination; M16.11 Unilateral primary osteoarthritis, right hip
CPT/HCPCS: 36415; 80048; 85027; 86850; 86900; 86901; 87635

== ENCOUNTER 2021-03-12 06:05 | Day surgery (SDC) | payer MEDICAID, SELFPAY ==
[2021-03-12] VITALS (8 sets, daily range): BP systolic 113–142; BP diastolic 50–70; PULSE 60–74; RESP 12–16; TEMP 36.3–36.5; O2SAT 97–100; BMI 25.4
--- NOTE | 2021-03-12 06:39 | W.ANESPRE ---
General Info Date of Service Date Performed: 03/12/21 Height: 5 ft 7 in Weight: 73.6 kg Body Mass Index (BMI): 25.4 Surgical Procedure: Operation Date: 03/12/21 08:05 Proposed Procedures Side Surgeon p Hip Total Hip Anterior Right Anjel Adrian MD Meds Allergies and Home Medications Allergies Allergy/AdvReac Type Severity Reaction Status Date / Time acetaminophen [From Percocet] Allergy Intermediate unknown Verified 03/11/21 12:24 oxycodone [From Percocet] Allergy Intermediate unknown Verified 03/11/21 12:24 tramadol Allergy Mild unknown Verified 03/11/21 12:24 cyclobenzaprine AdvReac Intermediate excessive Verified 03/11/21 12:24 sedatio Home Medication Medication Instructions Recorded omeprazole 20 mg PO HS 08/19/12 Fish Oil 1 tab PO HS 05/18/14 multivitamin [Daily Multi-Vitamin] 1 ea PO HS 05/18/14 aspirin [Aspirin Childrens] 1 tab PO HS 04/12/18 acetaminophen 650 mg PO QID PRN #20 tab 06/02/18 ibuprofen 600 mg PO QID PRN #20 tab 06/02/18 naproxen sodium [Aleve] 440 mg PO BID PRN 04/03/20 Current Visit Medications: Current Medications Generic Name Dose Route Start Last Admin Trade Name Freq PRN Reason Stop Dose Admin Acetaminophen 1,000 mg 03/12/21 06:00 Acetaminophen 500 Mg Tab PO 03/12/21 16:00 PREOP ELHAM Celecoxib 400 mg 03/12/21 06:00 Celecoxib 200 Mg Cap PO 03/12/21 16:00 PREOP ELHAM Tranexamic Acid 1,000 mg/ 60 mls @ 360 mls/hr 03/12/21 06:00 Sodium Chloride IV 03/12/21 16:00 PREOP ELHAM Ringer's Solution 1,000 mls @ 80 mls/hr 03/12/21 06:00 IV 04/10/21 23:59 INFUSION ELHAM Cefazolin Sodium/Dextrose 2 gm in 50 mls @ 100 mls/hr 03/12/21 06:00 Ancef Duplex IVPB 04/10/21 23:59 PREOP ELHAM IV Miscellaneous Supplies 1 each 03/12/21 06:00 Iv Access IV 04/10/21 23:59 DIRECTED ELHAM Sodium Chloride 0 ml 03/12/21 06:00 Normal Saline Flush 10 Ml Syr IV 04/10/21 23:59 PRN PRN Sodium Chloride 0 ml 03/12/21 06:00 Normal Saline 10 Ml Vial IJ 04/10/21 23:59 DIRECTED PRN Sterile Water 0 ml 03/12/21 06:00 Water,Injection,Sterile 10 Ml Vial IJ 04/10/21 23:59 DIRECTED PRN PFSH Active Problems Active Problems: Problem Status Onset Code Abdominal pain, RUQ R10.11 Tinnitus 06/27/13 H93.19 Sensory hearing loss, 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 Injury of head 06/27/13 S09.90XA 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 Umbilical hernia K42.9 S/P ventral herniorrhaphy ~06/02/18 Z98.890, Z87.19 Umbilical hernia without obstruction and without gangrene K42.9 Nailbed laceration, finger Open fracture of phalanx of left middle finger S62.603B Screening for colon cancer Z12.11 Family history of colon cancer Z80.0 Stress at home F43.9 Rib pain on left side R07.81 Anxiety F41.9 Lumbago M54.5 Chronic pain G89.29 Anemia D64.9 Family history of breast cancer Z80.3 Depression F32.9 Reflux esophagitis K21.00 Hyperlipidemia E78.5 Osteoarthritis of right hip M16.11 Medical History Active Problem List Abdominal pain, RUQ (Acute) Tinnitus (Acute 06/27/13) Sensory hearing loss, bilateral (Acute 06/27/13) Injury of head (Acute 06/27/13) Disequilibrium syndrome (Acute 06/27/13) Umbilical hernia (Acute) S/P ventral herniorrhaphy (Acute ~06/02/18) Nailbed laceration, finger (Acute) Open fracture of phalanx of left middle finger (Acute) Screening for colon cancer (Acute) Family history of colon cancer (Acute) Stress at home (Acute) Rib pain on left side (Acute) Anxiety (Chronic) Lumbago (Acute) Chronic pain (Chronic) Anemia (Chronic) Family history of breast cancer (Acute) Depression (Chronic) Reflux esophagitis (Acute) Hyperlipidemia (Acute) Osteoarthritis of right hip (Acute) Medical History GERD (gastroesophageal reflux disease) Surgical History Surgical History Cholecystectomy Colonoscopy - MAC (~2014) Dilation and curettage EGD - MAC (~2014) Endometrial Ablation Hx of shoulder surgery RTCR 08/2016 Ligation of fallopian tube Tobacco Smoking/Tobacco Use Status: Never Alcohol Alcohol Intake: never Substance Use Substance use: Never Substance use type: does not use Vital Signs and Lab Results Vital Signs Most Recent Vital Signs in EMR: Most Recent Vital Signs Temp Pulse Resp BP Pulse Ox 36.4 C L 61 16 131/60 99 03/12/21 06:24 03/12/21 06:24 03/12/21 06:24 03/12/21 06:24 03/12/21 06:24 Lab Results Blood Type / Crossmatch: Patient ABO/Rh B Positive 03/11/21 08:33 03/11/21 Antibody Screen NEGATIVE 03/11/21 08:33 03/11/21 Complete Blood Count: White Blood Count 5.14 10^3/uL (4.4-10.8) 03/11/21 08:33 03/11/21 Red Blood Count 5.36 10^6/uL (3.93-5.22) H 03/11/21 08:33 03/11/21 Hemoglobin 15.2 g/dL (11.2-15.7) 03/11/21 08:33 03/11/21 Hematocrit 46.1 % (36.0-46.0) H 03/11/21 08:33 03/11/21 Platelet Count 177 10^3/uL (130-400) 03/11/21 08:33 03/11/21 Complete Metabolic Panel: Sodium Level 143 mmol/L (136-145) 03/11/21 08:33 03/11/21 Potassium Level 5.1 mmol/L (3.5-5.1) 03/11/21 08:33 03/11/21 Chloride Level 108 mmol/L (98-107) H 03/11/21 08:33 03/11/21 Carbon Dioxide Level 29.0 mmol/L (21.0-32.0) 03/11/21 08:33 03/11/21 Blood Urea Nitrogen 17 mg/dL (7-18) 03/11/21 08:33 03/11/21 Creatinine 0.8 mg/dL (0.55-1.02) 03/11/21 08:33 03/11/21 Estimated GFR/1.73 m2 >= 60.00 (mL/min/1.73m2) 03/11/21 08:33 03/11/21 Magnesium Level 2.0 mg/dL (1.8-2.4) 02/27/21 08:00 02/27/21 Calcium Level 9.8 mg/dL (8.5-10.1) 03/11/21 08:33 03/11/21 Glucose Level 97 mg/dL (74-106) 03/11/21 08:33 03/11/21 Liver Function Panel: No Data to Display Coagulation Panel: No Data to Display Cardiac Panel: No Data to Display Arterial Blood Gas: No Data to Display Venous Blood Gas: No Data to Display Pancreas Panel: No Data to Display Thyroid Panel: No Data to Display Infectious Disease: Coronavirus (COVID-19)(PCR) Negative (Negative) 03/11/21 08:54 03/11/21 Coronavirus 2019 Source Nasal/Nares 03/11/21 08:54 03/11/21 Blood Cultures: No Data to Display Toxicology Panel: No Data to Display Imaging and Studies Imaging and Studies EKG Summary: 06/04/20 Conclusion Sinus rhythm...normal P axis, V-rate 60- 99 Atrial premature complex...SV complex w/ short R-R interval I have reviewed and interpreted ECG and agree with software generated interpretation. Stress Test Summary: 06/07/20 Stress ECG Conclusion 1. The resting electrocardiogram was within normal limits. The patient exercised on the Gunner protocol and completed a workload of 10.31 METS, stopping due to fatigue 2. Normal heart rate and blood pressure response to exercise. The patient achieved 100% of predicted heart rate for age 3. At peak exercise there was J-point depression and upsloping ST segments notably in the anterolateral leads. These did not meet criteria for myocardial ischemia 4. Occasional ventricular ectopic beats were noted Schaefer Treadmill Score is 8.2 which is Low risk. Anesthesia Assessment and Plan Anesthesia History Personal History: No History of Anesthesia Complications Family History: No Family History of Anesthesia Complications Exercise Tolerance Exercise Tolerance: Metabolic Equivalents>4 Pertinent Negatives Pertinent Negatives: No Symptoms of GERD, No Major Cardiovascular Symptoms or Complaints, No Major Pulmonary Symptoms or Complaints and No History of CVA/TIA Cardiac & Pulmonary Exam Cardiac Exam: Normal S1/S2 Heart Sounds Pulmonary Exam: Clear Bilateral Breath Sounds Implantable Cardiac Device Does patient have a Pacemaker or an ICD?: No Airway Exam Known Difficult Airway: No Mallampati Class: 2 Mouth Opening: Normal (> 3cm) Thyromental Distance: Greater than 3 cm Neck Range of Motion: Full ROM Neck Circumference: Normal Teeth Condition: Normal Dentition and Loose or Chipped (Broken tooth top right#15) Airway Comments: Top left crown ASA Classification ASA Score: ASA 2 Emergency Case?: No NPO Status NPO Status: NPO Clears >2 hours, Solids >8 hours Anesthesia Plan Resuscitation Status: Full Code Anesthesia Technique: Spinal Anesthesia Airway Planned: Natural Airway Monitors Used: Standard Monitors
[2021-03-12] MEDS: Acetaminophen 500 MG TAB 1000 MG PO (06:40)
[2021-03-12] MEDS: Celecoxib 200 MG CAP 400 MG PO (06:40)
[2021-03-12] MEDS: Lactated Ringers 1,000 ML 80 ML IV (06:52)
--- NOTE | 2021-03-12 07:20 | PDOC.DSDIS_ITS ---
Discharge Plan Disposition Patient Disposition: HOME Condition: Good Discharge Details Reason For Visit: R Hip DJD Attending Provider: Anjel Adrian Primary Care Provider: Wendy Cook Home Meds and New Rx's Prescriptions: New acetaminophen 500 mg tablet 1,000 mg PO Q8H PRN (Reason: pain) Qty: 90 RF: 3 aspirin 81 mg tablet,delayed release (DR/EC) 81 mg PO BID Qty: 60 RF: 0 docusate sodium [Colace] 100 mg capsule 100 mg PO BID PRNQty: 10 RF: 0 hydromorphone 2 mg tablet 2 mg PO Q4H PRN (Reason: pain) Qty: 5 RF: 0 ibuprofen 600 mg tablet 600 mg PO TID PRN (Reason: pain) Qty: 90 RF: 3 Continued multivitamin [Daily Multi-Vitamin] 1 EACH tablet 1 ea PO HS RF: 0 FISH OIL 1 tab PO HS RF: 0 omeprazole 20 MG capsule,delayed release(DR/EC) 20 mg PO HS RF: 0 Discontinued aspirin [Aspirin Childrens] 81 mg Tablet,Chewable 1 tab PO HS RF: 0 acetaminophen 325 mg tablet 650 mg PO QID PRN (Reason: pain) Qty: 20 RF: 0 ibuprofen 600 mg tablet 600 mg PO QID PRN (Reason: pain) Qty: 20 RF: 0 naproxen sodium [Aleve] 220 mg Tablet 440 mg PO BID PRNRF: 0 Discharge Instructions Additional Instructions: Total Hip Discharge Instructions Activity: The most important activity is to walk. You should try to take short walks a few times a day. You have no restrictions on movement or positioning, but do not try to force what you do. You will find some stiffness and weakness with hip flexion (lifting your knee). Do not try to strengthen this too early, continue to practice walking and stairs and this will come. - Outpatient physical therapy can be helpful to help return you to a normal gait and improve your flexibility and strength. This can start around 2 weeks. For some patients, it?s not necessary. Usually this is determined at the time of discharge or at the first post-operative visit. - You should wear the LILIA hose on both legs for 2 weeks. Dressing: Keep the surgical dressing in place for at least one week. After the first week it may be removed and replace with light gauze and tape or nothing. It may get wet after 3 days but avoid soaking the dressing. If it gets wet, just lightly pat dry. It is important to always keep some gauze between skin folds, especially when you are sitting. Spend some time with the wound exposed when you are lying flat as the incision does wrinkle onto itself. Medications: - You should take Tylenol and an anti-inflammatory Ibuprofen as your primary pain control medications. - You have been prescribed a stronger pain medication Hydromorphone for breakthrough pain, take as needed as prescribed. You may take a 1/2 tablet as well for a lesser dose. - You should continue your stomach acid reduction agent Omeprazole to help reduce stomach acid and reflux. - You will be taking Aspirin 81mg twice a day for DVT prevention unless instructed otherwise. - If you have constipation you should take Colace or Miralax (both [id number]). It takes most people 3-4 days to have a bowel movement. Follow-up: 2 weeks If you have any acute concerns or questions, please do not hesitate to contact the office at [phone]. You may contact Dr. Adrian with any questions after hours through the hospital at [phone] or on his cell phone at [phone]. Referrals: Anjel Adrian MD [ [facility]FF PHYSICIAN] - Equipment/Supplies: Walker Activity:: Activity as Tolerated Shower/Bathe:: Cover Diet:: As Tolerated Discharge Orders Discharge Orders: Discharge Order (Routine); Ordered 03/12/21 Ordered By: Anjel Adrian DS: Diagnosis Discharge Diagnosis (1) Osteoarthritis of right hip: Status: Acute
[2021-03-12] MEDS: ceFAZolin 2 GM/50 ML BAG IVPB (07:47)
[2021-03-12] MEDS: Bupivacaine 0.25% Pres-Free 30 ML VIAL (08:38)
[2021-03-12] MEDS: Ketorolac 30 MG/ML VIAL (08:40)
--- NOTE | 2021-03-12 08:52 | DI.RAD_ITS ---
Exam(s) XR HIP RT IN OR EXAM: XR HIP RT IN OR CLINICAL HISTORY: total hip replacement TECHNIQUE: 2D and realtime digital imaging was performed. CONTRAST MATERIAL: Refer to procedure report. COMPARISON: CR XR PELVIS AP from 02/27/2021 CR XR PELVIS AP from 02/27/2021 FINDINGS: Fluoroscopy was provided for Dr. Adrian during the performance of a right total hip replacement. Please refer to the procedure report for complete details. Ka,r=2.95 mGy IMPRESSION: RADIATION DOSE DELIVERED:
--- NOTE | 2021-03-12 09:14 | W.PM.OP ---
Date of service: 03/12/21 Time of Service: 09:15 Operative Note Operative Note DATE OF PROCEDURE: 03/12/21 PRE-OP DIAGNOSIS: Right Hip Osteoarthritis POST-OP DIAGNOSIS: same PROCEDURE: Right Anterior Total Hip Arthroplasty SURGEON: Anjel Adrian TOOLS ADMINISTRATOR: Bret Carmona ANESTHESIA TYPE: Spinal Refer to Anesthesia Record ESTIMATED BLOOD LOSS: 250 PATHOLOGY: none sent TOURNIQUET TIME: 0 COMPLICATIONS: None Patient was transported to: PACU Patient's condition: stable Implants: 1. Depuy Austin Acetabular Component, 50mm 2. Depuy Acetabular Liner, [id number] 3. Depuy Corail Standard Collared Femoral Stem, Size 11 4. Depuy Altrx Ceramic Femoral Head, Size 32+5mm Indications: I have seen Anette in clinic for symptoms of hip arthritis, confirmed with radiographic findings. She has exhausted nonoperative methods and was having significant limitations in daily function and desired better function and less pain. I discussed the technical details of a hip replacement. I explained the risks of the procedure to include, but not limited to, bleeding, infection, pain, stiffness, fracture, damage to nerves and vessels, damage to muscles and tendons, loosening, instability, leg length inequality, need for repeat procedure, blood clot and cardiopulmonary demise. Despite these risks, Anette elected to proceed. Findings: There was significant signs of arthritis throughout the hip, mostly of the superior weight-bearing femoral head and the superior acetabulum. Procedure Description: Anette was greeted in the preoperative holding area where the correct side was identified and marked. The consent was reviewed with the patient and signed. The history and physical was updated. All questions were answered. She was taken back to the operating room. A spinal anesthestic was then administered. The feet were wrapped with cast padding and Coban and then placed into the boot liners and then into the boots. Care was taken to protect the skin and make sure the heels were fully down and the boots were stable. The patient was then positioned onto the HANA table. Both legs were held in a neutral position. SCDs were applied. The patient was then slid down onto a peroneal post. Prophylactic antibiotics in the form of Cefazolin were administered. 1g of Tranxemic Acid was given intravenously within 30 minutes of incision. The right leg was then prepped with Chloraprep and draped in a standard fashion. A second prep with Chloraprep was performed prior to placement of a shower-curtain type drape with Iodine impregnated skin protection. A timeout to confirm correct identity, side and site, procedure, allergies, anesthesia, and medical concerns was performed. An obliquely oriented incision was made starting lateral to the ASIS and running distal over the Tensor Fascia Kaleigh (TFL) muscle belly toward the fibular head, approximately 10cm. The skin and soft tissue was dissected sharply, through Edinson?s fascia, and to the fascia of the TFL. With the fascia and superior border of the IT band identified, the fascia was incised with a new knife just above any perforators from the IT band. The TFL muscle belly was bluntly dissected away from the fascia and moved laterally. The fat between TFL and rectus was identified to ensure the dissection was not within the TFL. Blunt dissection created space between abductors and the capsule and retractor was placed over the lateral femoral neck. The fibers of the rectus femoris tendon were identified and these were freed from the anterior capsule. A second cobra retractor was placed around the medial femoral neck. The TFL was further retracted laterally to show the deep fascia. Careful dissection through this layer identified three main crossing vessels of the lateral femoral circumflex. These were cauterized in multiple locations and then cut without any noticeable bleeding. The TFL was further released bluntly from the deep fascia to expose anterior hip capsule and fat The Chao orthopaedic retractor was then placed beneath the TFL and against sartorius and medial soft tissues to protect and retract the soft tissues. A T-capsulotomy was then performed starting at the superior lateral acetabulum and moving distally to the intertrochanteric ridge. These capsular flaps were tagged with a No. 1 Ethibond and elevated from within. The capsular flaps were released to the shoulder of the lateral neck and to the lesser trochanter to give excellent visualization of the proximal femur. A neck osteotomy was performed using an oscillating saw based on preoperative templates. This cut started in the shoulder and of the lateral neck and exited medially. The saw was at all times directed medially to avoid injury to the greater trochanter. Gross traction was applied to the leg and the osteotomy opened. The femoral head was removed with a corkscrew, making sure to protect the TFL on its exit. Traction was released after head removal. This was measured on the back table to determine the starting reamer size. Portions of the rectus obscuring visualization were minimally elevated off the superior acetabulum. An anterior retractor was placed over the anterior wall between capsule and labrum and attached to the Gripper retraction system. The femur was rotated to 90 degrees and medial capsule was fully released until the lesser trochanter was palpable and visible; the femur was returned to 30 degrees. A posterior retractor was placed similarly between capsule and labrum. This provided excellent visualization. The contents of the cotyloid fossa were removed with electrocautery and the labrum was removed with a knife. There was a notable floor osteophyte. There was significant chondromalacia of the superior acetabulum. Acetabular reaming began with a 46mm reamer. This first reaming was directed anterior to posterior and medial to get down to the true floor. This was inspected and reamed until the true floor was reached. The anterior retractor was then released and entry and exit was provided by traction on the capsular flaps. I then reamed sequentially up to a 50mm reamer where good fit was obtained. The larger reamers were oriented based on anatomical reference of the anterior and lateral bailey to ensure proper abduction and anteversion. Positioning and size was confirmed with the fluoroscopy. A 50mm Depuy Austin acetabular component was selected. The deep tissues were irrigated. The acetabular component was then impacted in a position of about 40-45 degrees of abduction and 15-20 degrees of anteversion, using the patient?s anatomy as the ultimate landmark. Fluoroscopy was used to confirm this. There was excellent caramel coloring operator of the acetabular component and the inserting handle was removed. The acetabular liner, Depuy [id number] polyethylene liner, was inserted and lined up with the tines of the acetabular component. There was no soft tissue interposition. The liner was then impacted into position and confirmed to be well-seated. A portion of the vel-articular cocktail was then injected around the acetabulum into the capsule and periosteum. This cocktail consisted of 50cc of 0.25% Bupivicaine and 20cc of Exparel and 30mg of Ketorolac. The leg was rotated to 120 degrees. Any remaining medial capsule was released until the lesser trochanter was easily palpable. A retractor was placed medially. The lateral capsule was further released into the shoulder to allow access to the greater trochanter. A Serrato retractor was placed over the greater trochanter which allowed the trochanter to flip in front of the capsule for excellent exposure. The leg was brought down into maximal extension and 20 degrees of adduction while ensuring there was no impingement on the acetabulum. Any remnant capsule within the trochanter was released. Piriformis and obturator externis were identified and protected. There was excellent access to the proximal femur. The lateral neck remnant was removed with a rongeur. A blunt canal probe was used to identify the canal and trajectory for later broaching. A box osteotome initiated the broach course. A small curved rasp and a curved curette were used to work laterally. Broaching then began with a size 8 Corail broach. This was inserted manually around the trochanter and into the canal before mallet blows. The broach was seated to a few millimeters below the cut level based on the neck cut and the preoperative template. Sequential broaching was continued with the [employer] pneumatic broaching device until a tight fit was obtained with good rotational control of the femur. A trial standard neck was inserted along with a +1 trial head. The leg was brought out of extension and adduction and then reduced with traction and internal rotation. The leg was stable anteriorly in a position of 30 degrees of extension and 90 degrees of external rotation. Fluoroscopy was used to ensure there was no fracture and the stem was seated well. Leg lengths were checked with an AP pelvis and pelvic reference points. [email or web address] navigation system was used to confirm appropriate positioning and leg length and offset. Based on this information and to recreate leg length and offset, I was going to advance the stem 4mm and go to a +5mm head. Once content with the desired offset and leg lengths, the leg was brought back into extension, external rotation and adduction. The broach was taken out and then advanced another 4mm, confirmed with a ruler. The periosteum and surrounding tissue was injected with remaining portion of the vel-articular cocktail. The proximal femur was irrigated as well as the deep tissues. The Depuy Corail standard collared stem, size 11, was then manually inserted into the proximal femur making sure to control rotation. It was then malleted into position with light blows, giving breaks to allow bone expansion and decrease risk of fracture. The selected Depuy Altrx Ceramic Head, size 32+5mm, was then placed onto the clean and dry trunnion and secured with impaction onto the tapered fit. The leg was brought back out of extension and adduction and reduced with traction and internal rotation. Stability was confirmed with no shuck at 90 degrees of external rotation and 30 degrees of extension. No impingement through range of motion arc. Final x-ray images were obtained with fluoroscopy to confirm adequate positioning and no intraoperative fracture. The deep tissues were thoroughly irrigated with Irrisept chlorhexadine solution. The second dose of TXA 1g was administered intravenously.The capsule was then reapproximated with the previously placed Ethibond sutures. The TFL fascia was finally closed with a No. 2 Stratafix, barbed suture. Deep tissues were then reapproximated with 0 Vicryl and a running 2-0 Vicryl. The skin was closed with a running 4-0 Monocryl in a subcuticular fashion. This was reinforced with skin glue. A Mepilex silver dressing was applied. At the end of the case, all counts were correct. Anette was transferred to the hospital bed without difficulty and suffering no apparent complication. She has a good prognosis. Physical therapy will start today and without restrictions, weight-bearing as tolerated. Aspirin 81mg BID will be used for DVT prophylaxis.
--- NOTE | 2021-03-12 09:42 | W.ANESPOSTOP ---
Postoperative Evaluation Date, Time and Location Date Performed: 03/12/21 Time Performed: 09:42 Patient Location: PACU Vital Signs Most Recent Imported Vital Signs: Most Recent Vital Signs Temp Pulse Resp BP Pulse Ox 36.4 C L 62 14 114/55 L 100 03/12/21 09:32 03/12/21 09:32 03/12/21 09:32 03/12/21 09:32 03/12/21 09:32 Pain Score Most Recent Pain Score: Most Recent Pain Score Pain Level 0 03/12/21 09:32 Assessment Mental Status: Awake (Alert & Oriented to Patient Baseline) Airway and Respiratory Function: Patent airway with normal (patient baseline) respiratory exam Cardiovascular Function: Hemodynamically Stable Hydration Status: Adequately Hydrated Nausea & Vomiting: No Nausea or Vomiting Pain: Pt. Denies Any Pain Peripheral Nerve Block: Patient did not receive a nerve block
--- NOTE | 2021-03-12 11:31 | IN_ITS ---
Date of service: 03/12/21 Time of Service: 11:31 PT Notes Visit Reasons: R Hip DJD Physical Therapy Day Surgery Initial Evaluation Date: 03/12/2021 Referring Doctor: DINA Bender PT Orders: PT CONSULT: Eval/Treat. Precautions: WBAT on the R LE with AD. Patient Profile/Admitting Diagnosis: Anette is a 5-year-old female osteoarthritis of the right status post right total hip arthroplasty on postoperative day 0. 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 Independent with all aspects of ADLs prior to surgery device. Equipment Owned/DME: [facility] Subjective: Agreeable to PT consult. Reports fatigue of the right hip muscles with ambulation activity. Denies headache, chest pain, and dizziness throughout session. Reports 2 falls in the past year. Objective: General Observation: Supine on stretcher. Mepilex Ag over surgical incision. TEDS ambulates. Mental Status: Alert and oriented x4 Pain: Denies ROM: Right Lower Extremity: Hip flexion WFL. Hip abduction WFL. Knee flexion WFL. Ankle dorsiflexion WFL. Ankle plantarflexion WFL. Left Lower Extremity: Hip flexion WFL. Hip abduction WFL. Knee flexion WFL. Ankle dorsiflexion WFL. Ankle plantarflexion WFL. Strength: Right Lower Extremity: Hip flexors 4-/5. Hip abductors 4-/5. Knee flexors 5/5. Knee extensors 4/5. Ankle dorsiflexors 5/5. Ankle plantarflexors 5/5. Left Lower Extremity:Hip flexors 5/5. Hip abductors 5/5. Knee flexors 5/5. Knee extensors 5/5. Ankle dorsiflexors 5/5. Ankle plantarflexors 5/5. Sensation: Intact as to pain and light pressure in bilateral lower extremities. No numbness. No tingling. Bed Mobility/Transfers: Supine to sit supervision Sit to stand contact-guard assist Stand to sit standby assist Bed to chair standby assist Gait: Tolerated level surface ambulation using front-wheeled walker with step through gait pattern and WBAT on right LE for up to 150 feet with just standby assist of PT. No LOB. Reported fatigue around the right hip muscles after activity. Stairs: Negotiated 6 x 4 inch steps and 4 x 2 inch steps while holding onto 1 rail with step to gait pattern requiring standby assist with no report of increased pain. Balance: Static Sitting: Normal Dynamic Sitting: Normal Static Standing: Fair Dynamic Standing: Fair Special Tests: Mobility Limitations Standardized Measure [facility] AM-PAC 6 clicks Basic Mobility Inpatient Short Form: Raw Score: 23 CMS Score: 11% deficit Informed Consent/Education: Patient instructed in purpose of PT consult. Packet containing JAIME exercise protocol has been given to patient. Education and training on initial set of exercises that can be done at home have been completed with patient. Assessment: Anette requires the use of a front wheeled walker to maximize independence and reduce fall risk at discharge destination. Patient presents with clinical signs and symptoms consistent with current/admitting diagnoses that have resulted to mobility limitations and gait instability as demonstrated by the following impairment level findings: 1. Decreased strength to right hip major muscle groups 2. Impaired standing balance Impairments are contributing to the following functional limitations: 1. Inability to safely ambulate without assistive device 2. Increase completion time for mobility ADL performance 3. Increased fall risk Patient is assessed as a 45330 moderate complexity based on the following: History: 65-year-old female with impairment level findings, functional limitations, and past medical history as indicated above Examination: Demonstrable impairment in strength, balance, and mobility level with underlying impairments and functional limitations as documented above Presentation: Evolving Decision Makin moderate complexity Goals: N/A. PT evaluation and 1-2 treatment sessions only for functional mobility training using recommended AD and for HEP instruction. Plan of Care/Treatment Plan: N/A. PT evaluation and 1-2 treatment session only for functional mobility training using recommended AD and for HEP instruction. DISCHARGE RECOMMENDATIONS: [] Home with no services [] [X] Home with services. Home when medically cleared by orthopedic surgeon. May benefit from outpatient PT services to facilitate return to level assistive device. [] Home with outpatient PT [] [] SNF for continued rehabilitation [] [] Group Home Care [] [] SNF versus LTC based on ability to participate and progress [] TREATMENT CODE/TIME: 9716 2 x 20 minutes, 9753 0 x 17 minutes beginning at 11:31 AM. Thank you for the opportunity to participate in the care of this patient. Carrol Dahl PT, DPT, CLT [facility] [place], [place]
== END 2021-03-12 13:00 | disposition home or self-care (01) ==
PROVIDERS: PCP Nurse Practitioner Family; Visit Provider Student in an Organized Health Care Education/Training Program
PROC: (CPT 27130; principal; 2021-03-12 07:45)
DX: M16.11 Unilateral primary osteoarthritis, right hip (principal); D64.9 Anemia, unspecified; K21.9 Gastro-esophageal reflux disease without esophagitis; E78.5 Hyperlipidemia, unspecified
CPT/HCPCS: 27130; 20985; 97162; 97530; 73501; J0690; J1100; J1885; J2001; J2250; J2405

== ENCOUNTER 2021-03-25 09:35 | Outpatient (CLI) | payer MEDICAID, SELFPAY ==
--- NOTE | 2021-03-25 09:00 | DI.RAD_ITS ---
Exam(s) XR HIP RT COMPLETE AP PELVIS EXAM: XR HIP RT COMPLETE AP PELVIS CLINICAL HISTORY: 1ST POST OP R JAIME. TECHNIQUE: 2D digital imaging was performed. COMPARISON: CR XR PELVIS AP from 02/27/2021 FINDINGS: Stable position alignment of the components of the recently placed right hip prosthesis. No fracture or loosening evident. IMPRESSION: DATA REPOSITORY: RADIATION DOSE DELIVERED:
== END 2021-03-25 09:36 | disposition home or self-care (01) ==
LOC: DIORS 09:35
PROVIDERS: PCP Nurse Practitioner Family; Referring Provider Nurse Practitioner Family; Visit Provider Student in an Organized Health Care Education/Training Program
DX: Z96.641 Presence of right artificial hip joint (principal)
CPT/HCPCS: 73502

== ENCOUNTER 2021-05-29 01:46 | Outpatient (CLI) | payer MEDICAID, SELFPAY ==
--- NOTE | 2021-05-29 09:30 | DI.DEXA_ITS ---
Exam(s) XR DEXA BONE DENSITY W/WO PAULINE EXAM: XR DEXA BONE DENSITY W/WO PAULINE CLINICAL HISTORY: ELEVATED ALKALINE PHOSPHATASE, R74.8,SCREENING FOR OSTEOPOROSIS TECHNIQUE: COMPARISON: No exams were available for comparison FINDINGS: Lateral Spine Image: Unremarkable. No compression deformities identified. Left hip: Total T-Score: -0.8. Total Z-Score: 0.3 T- and Z-scores: Overall, within normal limits. There is osteopenia in the left femoral neck with a T -score of -1.4. Lumbar Spine: Total T-Score: -0.5 Total Z-Score: 1.2 T- and Z-scores: Within normal limits. IMPRESSION: No evidence of osteoporosis.
== END 2021-05-29 02:06 ==
PROVIDERS: PCP Nurse Practitioner Family; Visit Provider Nurse Practitioner Family
DX: Z13.820 Encounter for screening for osteoporosis (principal); M85.88 Other specified disorders of bone density and structure, other site
CPT/HCPCS: 77080

== ENCOUNTER 2021-08-20 20:23 | Emergency (ER) | payer MEDICAID, SELFPAY ==
[2021-08-20 20:34] VITALS: BP 135/57; PULSE 65; RESP 18; TEMP 36.8; O2SAT 18
--- NOTE | 2021-08-20 21:15 | DI.RAD_ITS ---
Exam(s) XR SACRUM EXAM: XR SACRUM CLINICAL HISTORY: fall pain. TECHNIQUE: 2D digital imaging was performed. Two views. COMPARISON: MR MR lumbar spine wo from 07/06/2018 CR XR SACRUM COCCYX from 12/19/2020 CR XR PELVIS AP from 02/27/2021 CR XR DEXA BONE DENSITY W/WO PAULINE from 05/29/2021 FINDINGS: BONES: No acute fracture is present. No bony destructive lesion is seen. JOINTS: No dislocation present. Degenerative changes SI joints. Degenerative changes lower lumbar spine. SOFT TISSUE: Normal. Tubal ligation clips. IMPRESSION: No acute abnormality. DATA REPOSITORY: RADIATION DOSE DELIVERED:
--- NOTE | 2021-08-20 21:15 | DI.RAD_ITS ---
Exam(s) XR HIP LT COMPLETE AP PELVIS EXAM: XR HIP LT COMPLETE AP PELVIS INDICATION: pain, fall 2 days ago. COMPARISON: CR XR HIP RT COMPLETE AP PELVIS from 03/25/2021 TECHNIQUE: 2D digital imaging was performed. Three views. FINDINGS: Right hip prosthesis. No evidence of fracture or dislocation. Left hip joint space is well maintain ed. Mild acetabular spurring on the left. Mild degenerative changes of the SI joints. IMPRESSION: No acute abnormality. DATA REPOSITORY: RADIATION DOSE DELIVERED:
[2021-08-20] MEDS: Ibuprofen 600 MG TAB PO (21:42)
--- NOTE | 2021-08-20 22:00 | DI.RAD_ITS ---
Exam(s) XR HIP RT AP LAT ONLY EXAM: XR HIP RT AP LAT ONLY CLINICAL HISTORY: pain. TECHNIQUE: 2D digital imaging was performed. Two views COMPARISON: CR XR DEXA BONE DENSITY W/WO PAULINE from 05/29/2021 FINDINGS: BONES: No acute fracture is present. No bony destructive lesion is seen. Right hip prosthesis, intact . No surrounding lucencies. JOINTS: No dislocation present. SOFT TISSUE: Normal. IMPRESSION: Unremarkable radiographs of the right hip. DATA REPOSITORY: RADIATION DOSE DELIVERED:
--- NOTE | 2021-08-20 22:03 | ED.GENADUL_ITS ---
Discharge Plan Disposition Patient Disposition: HOME Condition: Stable Discharge Details Chief Complaint: Nk/Back Pain Clinical Impression: Fall, Coccyx contusion, Acute pain of right hip Primary Care Provider: Wendy Cook ED Provider: David Chen Home Meds and New Rx's Prescriptions: No Action multivitamin [Daily Multi-Vitamin] 1 EACH tablet 1 ea PO HS 0RF FISH OIL 1 tab PO HS 0RF omeprazole 20 MG capsule,delayed release(DR/EC) 20 mg PO HS 0RF Discharge Instructions Instructions: Contusion in Adults (ED) Additional Instructions: Please take ibuprofen over the counter. Take 600mg by mouth every 6 hours as needed for pain. Please contact your primary care physician to arrange follow-up. If pain in your hip persist more than a few days. Please follow-up with your orthopedic surgeon. Return to the ER immediately for any worsening or new concerning symptoms. Referrals: Wendy Cook [Primary Care Provider] - Anjel Adrian MD [ [facility] STAFF PHYSICIAN] - Medical Decision Making 2199 -- 65-year-old female status post complete rt hip replacement, here with pain in her coccyx and right hip after fall 2 days ago. Plan to obtain x-ray to assess for fracture. 2299 --x-ray of the coccyx, right hip and left hip and pelvis were interpreted by radiology: No acute findings. Results were discussed with patient results were discussed with patient usual customary discharge instructions were reviewed with her. HPI General Mode of arrival: ambulatory . Date/Time Provider Initiated Documentation: 08/20/21 21:05 . Limitations to Documentation: no limitations . Information obtained by: patient . HPI Narrative: 65yo f presents with chief complaint of coccyx pain. Patient notes she tripped and fell landing on her buttocks 2 days ago while attempting to move heavy objects. Object fell onto her. She did not sustain any injury to her head, neck, chest abdomen or pelvis. Pain in her tailbone is moderate to severe. She also notes associated pain in her right hip. No numbness or tingling. Related Data Home Medications Medication Instructions Recorded Confirmed omeprazole 20 mg capsule,delayed 20 mg PO HS 08/19/12 04/23/21 release Fish Oil 1 tab PO HS 05/18/14 04/23/21 multivitamin (Daily Multi-Vitamin) 1 ea PO HS 05/18/14 04/23/21 Allergies Allergy/AdvReac Type Severity Reaction Status Date / Time acetaminophen [From Percocet] Allergy Intermediate unknown Verified 03/25/21 09:10 oxycodone [From Percocet] Allergy Intermediate unknown Verified 03/25/21 09:10 tramadol Allergy Mild unknown Verified 03/25/21 09:10 cyclobenzaprine AdvReac Intermediate excessive Verified 03/25/21 09:10 sedatio General Stated Complaint: Nk/Back Pain KIET: 4 Review of Systems Constitutional Constitutional: Denies weakness Cardiovascular Cardiovascular: Denies chest pain and Denies dyspnea Respiratory Respiratory: Denies dyspnea Gastrointestinal Gastrointestinal: Denies abdominal pain Musculoskeletal Musculoskeletal: Reports as per HPI and Denies numbness Neurologic Neurologic: Denies numbness, Denies sensory deficit and Denies weakness PFSH All Active Problems (Updated 08/20/21 @ 23:00 by David Chen MD) Fall (Acute) Coccyx contusion (Acute) Acute pain of right hip (Acute) History of total right hip replacement (Acute) Abdominal pain, RUQ (Acute) Tinnitus (Acute 06/27/13) Sensory hearing loss, bilateral (Acute 06/27/13) Injury of head (Acute 06/27/13) Disequilibrium syndrome (Acute 06/27/13) Umbilical hernia (Acute) S/P ventral herniorrhaphy (Acute ~06/02/18) umbilical hernia repair Nailbed laceration, finger (Acute) S/P repair: 04/03/2020 Open fracture of phalanx of left middle finger (Acute) Screening for colon cancer (Acute) Family history of colon cancer (Acute) Stress at home (Acute) Rib pain on left side (Acute) Anxiety (Chronic) Lumbago (Acute) Chronic pain (Chronic) Anemia (Chronic) Family history of breast cancer (Acute) Depression (Chronic) Reflux esophagitis (Acute) Hyperlipidemia (Acute) Osteoarthritis of right hip (Acute) Medical History GERD (gastroesophageal reflux disease) Traumatic arthritis of right hip Surgical History Cholecystectomy Colonoscopy - MAC (~2014) Dilation and curettage EGD - MAC (~2014) Endometrial Ablation Hx of shoulder surgery RTCR 08/2016 Ligation of fallopian tube Family History Other Personal history of malignant neoplasm Social History Smoking/Tobacco Use Status: Never Smoking risk assessment performed?: Yes Alcohol Intake: never Drug use: Never Substance use type: does not use Current gender identity: female Do you feel safe at home: Yes Do you feel safe in your relationship?: Yes Exam Const General: cooperative and no acute distress HENMT Head: normocephalic and atraumatic Resp Auscultation: clear to auscultation bilaterally, no rales, no rhonchi and no wh eezes Cardio Rate: regular rate and not tachycardic Rhythm: regular rhythm Back/Spine/Pelvis Cervical Spine: No cervical spinal tenderness and No step off deformity Thoracic/Lumbar Spine: thoracic and lumbar spine normal to inspection, No thoracic spinal tenderness and No lumbar spinal tenderness Sacrum: tenderness on the right and midline Coccyx: tenderness Skin General skin exam: no rashes or lesions noted Neuro General: patient alert, patient awake and tone normal Cognition: normal cognition Motor: other (Distal motor intact) Sensory Exam: no sensory deficits noted (Bilateral lower EXTR) Extrem General: no edema Course Vital Signs Vital signs: Vital Signs Temperature 36.8 C 08/20/21 20:34 Pulse 65 08/20/21 20:34 Respiratory Rate 18 08/20/21 20:34 Blood Pressure 135/57 L 08/20/21 20:34 Pulse Oximetry 18 L 08/20/21 20:34 Temperature 36.8 C 08/20/21 20:34 Temperature Source Temporal Artery Scan 08/20/21 20:34 Pulse 65 08/20/21 20:34 Respiratory Rate 18 08/20/21 20:34 Blood Pressure 135/57 L 08/20/21 20:34 Blood Pressure Position Sitting 08/20/21 20:34 Pulse Oximetry 18 L 08/20/21 20:34 Oxygen Delivery Method Room Air 08/20/21 20:34 Oxygen Flow Rate 0 08/20/21 20:34
--- NOTE | 2021-08-20 22:11 | DI.VRAD_ITS ---
PROCEDURE INFORMATION: Exam: XR Left Hip Exam date and time: 08/20/2021 9:42 PM Age: 65 years old Clinical indication: Injury or trauma; Blunt trauma (contusions or hematomas); Left; Injury date: 08/21/21; Injury details: Fall 2 days ago, pain; Prior surgery; Surgery date: 6+ months; Surgery type: R hip TECHNIQUE: Imaging protocol: XR Left hip. Views: 2 or 3 views hip with pelvis when performed. COMPARISON: CR XR PELVIS AP 02/27/2021 2:02 PM FINDINGS: Bones/joints: Unremarkable. No acute fracture. Changes of right hip arthroplasty. Soft tissues: Unremarkable. IMPRESSION: No acute findings. Dictated and Authenticated by: Jorge Arreola MD. Ordering:MEENU Hernandez MD
--- NOTE | 2021-08-20 22:11 | DI.VRAD_ITS ---
PROCEDURE INFORMATION: Exam: XR Sacrum and Coccyx, 2 or More Views Exam date and time: 08/20/2021 9:48 PM Age: 65 years old Clinical indication: Injury or trauma; Blunt trauma (contusions or hematomas); Injury details: Fall 2 days ago, pain; Prior surgery; Surgery date: 6+ months; Surgery type: Tubal ligation TECHNIQUE: Imaging protocol: XR of the sacrum and coccyx, 2 or more views. COMPARISON: XR SACRUM COCCYX 12/19/2020 3:06 PM FINDINGS: Bones/joints: Normal. No acute fracture. Soft tissues: Normal. IMPRESSION: No acute findings. Dictated and Authenticated by: Jorge Arreola MD. Ordering:MEENU Hernandez MD
--- NOTE | 2021-08-20 22:28 | DI.VRAD_ITS ---
PROCEDURE INFORMATION: Exam: XR Right Hip Exam date and time: 08/20/2021 10:11 PM Age: 65 years old Clinical indication: Injury or trauma; Blunt trauma (contusions or hematomas); Right; Injury date: 08/18/21; Injury details: Fall, hip pain; Prior surgery; Surgery date: 6+ months; Surgery type: Hip replacement TECHNIQUE: Imaging protocol: XR Right hip. Views: 2 or 3 views hip with pelvis when performed. COMPARISON: CR XR HIP RT COMPLETE AP PELVIS 03/25/2021 9:34 AM FINDINGS: Bones/joints: Unremarkable. No acute fracture. Changes of right hip arthroplasty. Soft tissues: Unremarkable. IMPRESSION: No acute findings. Dictated and Authenticated by: Jorge Arreola MD. Ordering:MEENU Hernandez MD
[2021-08-20 23:04] VITALS: BP 134/60; PULSE 61; RESP 18; O2SAT 99
== END 2021-08-20 23:05 | disposition home or self-care (01) ==
PROVIDERS: Emergency Provider Student in an Organized Health Care Education/Training Program; PCP Nurse Practitioner Family
DX: S30.0XXA Contusion of lower back and pelvis, initial encounter (principal); M25.551 Pain in right hip; M25.552 Pain in left hip; W17.89XA Other fall from one level to another, initial encounter; Z96.641 Presence of right artificial hip joint
CPT/HCPCS: 99284; 72220; 73502; 99283

== ENCOUNTER 2021-10-30 18:11 | Emergency (ER) | payer MEDICAID, SELFPAY ==
[2021-10-30 18:31] VITALS: BP 126/60; PULSE 66; RESP 18; TEMP 36.7; O2SAT 98
--- NOTE | 2021-10-30 18:45 | DI.RAD_ITS ---
Exam(s) XR RIBS LT W PA LAT CHEST EXAM: XR RIBS LT W PA LAT CHEST CLINICAL HISTORY: fall/pain. TECHNIQUE: 2D digital imaging was performed. COMPARISON: CR,XR XR CHEST 2V PA LATERAL from 06/04/2020 FINDINGS: Six views: Left rib cage-four views: No left rib fractures identified. No rib lesions. Bone density normal. Chest x-ray-two views heart size normal. Mediastinum not widened. Lungs are clear. No infiltrates nor pleural effusions. No pneumothorax. There is evidence of previous surgery in the right shoulder . IMPRESSION: No left rib fractures. No acute pulmonary findings. DATA REPOSITORY: RADIATION DOSE DELIVERED:
--- NOTE | 2021-10-30 19:05 | ED.GENADUL_ITS ---
Discharge Plan Disposition Patient Disposition: HOME Condition: Stable Discharge Details Clinical Impression: Contusion of rib on left side Primary Care Provider: Wendy Cook ED Provider: Tevin Samayoa Home Meds and New Rx's Prescriptions: New lidocaine [Lidoderm] 5 % adhesive patch,medicated 1 patch topical DAILY Qty: 15 0RF Rx Instructions: leave on most painful area for up to 12 hrs Continued multivitamin [Daily Multi-Vitamin] 1 EACH tablet 1 ea PO HS FISH OIL 1 tab PO HS omeprazole 20 MG capsule,delayed release(DR/EC) 20 mg PO HS Discharge Instructions Instructions: Rib Contusion (ED) Additional Instructions: Yes chest x-ray unremarkable per radiology. [id number] medications such as Tylenol as directed. Cool compresses every 2 hours for 20 minutes. Lidoderm patches and incentive spirometer as directed. Please watch for new or worsening symptoms and return to the ER for any concerns. Lastly, please contact your primary care provider tomorrow to discuss your ER visit and need for outpatient reevaluation Medical Decision Making This is a 66-year-old female, denies significant past medical history, presenting for left anterior chest wall pain status post mechanical slip and fall over the weekend. She reports the pain is worse with deep breathing or movement. She is concerned that she may have broken a rib. She states that her left arm after the fall was initially sore and stiff, more so at the wrist, but now with conservative measures it is asymptomatic regarding her left arm. She was asymptomatic prior to the fall. Lungs are clear to auscultation, low suspicion for pneumothorax. Plan is to obtain x-ray to assess potential pneumothorax and/or rib fracture X-ray read by radiology as unremarkable Discussed findings with patient. She is agreeable to Lidoderm patch, does not want anything stronger. Is also agreeable to incentive spirometer Standard discharge and return precautions were provided. Patient understands, is agreeable to this plan, and has no additional questions or concerns upon discharge. This documentation was generated using e[employer] system, please disregard any oddities of phrase or misspellings. Medical Records Medical records reviewed: Yes I reviewed the patient's medical records. Imaging Data Radiologic Study: Attestation: I personally reviewed and interpreted this imaging study as follows: Imaging: X-Ray Radiologist's impression: PROCEDURE INFORMATION: Exam: XR Left Ribs Exam date and time: 10/30/2021 7:21 PM Age: 66 years old Clinical indication: Injury or trauma; Fall; Blunt trauma (contusions or hematomas); Rib area TECHNIQUE: Imaging protocol: Radiologic exam of the Left ribs. Views: 2 views. COMPARISON: CR XR RIBS LT W PA LAT CHEST 03/05/2020 9:26 AM FINDINGS: Bones/joints: Normal. Soft tissues: Normal. IMPRES GLEN: No acute findings. PROCEDURE INFORMATION: Exam: XR Chest Exam date and time: 10/30/2021 7:21 PM Age: 66 years old Clinical indication: Injury or trauma; Fall; Blunt trauma (contusions or hematomas); Rib area TECHNIQUE: Imaging protocol: Radiologic exam of the chest. Views: 2 views. BOYKINBRIANIE Preliminary Radiology Report CUSTOMER SPECIALIST (QA) DISCREPANCY? If there is a discrepancy between the preliminary and final interpretation, please notify [facility] via [email or web address]. If you do not have access to our QA portal, call our QA team at [phone] CONFIDENTIALITY STATEMENT This report is intended only for the use of the referring physician, and only in accordance with law, If you received this in error, call [phone] Page 2 of 2 COMPARISON: CR XR CHEST 2V PA LATERAL 06/04/2020 4:49 PM FINDINGS: Lungs: Unremarkable. No consolidation. Pleural spaces: Unremarkable. No pleural effusion. No pneumothorax. He art/Mediastinum: Unremarkable. No cardiomegaly. Bones/joints: Mild thoracic levoscoliosis. Soft tissues: Soft tissue anchor in the right humeral head. IMPRESSION: No acute cardiopulmonary disease HPI General Mode of arrival: ambulatory . Date/Time Provider Initiated Documentation: 10/30/21 18:54 . Limitations to Documentation: no limitations . Information obtained by: patient and family . History of Present Illness 66 year old F presents to the emergency department with the chief complaint of Left rib pain, described as moderate, with intensity rated at 7. Quality is described as aching, and is localized to the chest and left. Patient reports no radiation. Patient started experiencing this day(s) (3) and it has been constant. Immobilization improves symptom(s), Movement worsens symptoms . Patient notes no other symptoms.. Patient did receive the follow ing treatments prior to arrival, none Related Data Home Medications Medication Instructions Recorded Confirmed omeprazole 20 mg capsule,delayed 20 mg PO HS 08/19/12 10/30/21 release Fish Oil 1 tab PO HS 05/18/14 10/30/21 multivitamin (Daily Multi-Vitamin 1 ea PO HS 05/18/14 10/30/21 tablet) lidocaine 5 % topical patch 1 patch topical DAILY #15 ea 10/30/21 (Lidoderm) Previous Rx's Medication Instructions Recorded lidocaine 5 % topical patch 1 patch topical DAILY #15 ea 10/30/21 (Lidoderm) Allergies Allergy/AdvReac Type Severity Reaction Status Date / Time acetaminophen [From Percocet] Allergy Intermediate unknown Verified 10/30/21 18:35 oxycodone [From Percocet] Allergy Intermediate unknown Verified 10/30/21 18:35 tramadol Allergy Mild unknown Verified 10/30/21 18:35 cyclobenzaprine AdvReac Intermediate excessive Verified 10/30/21 18:35 sedatio General Stated Complaint: Orthopedic KIET: 3 Review of Systems Constitutional Constitutional: Denies headache(s) and Denies weakness ENT Ears, Nose, Mouth, and Throat: Denies headache(s) and Denies neck pain Cardiovascular Cardiovascular: Reports chest pain (chest wall/rib) and Denies dyspnea Respiratory Respiratory: Denies cough and Denies dyspnea Gastrointestinal Gastrointestinal: Denies abdominal pain, Denies nausea and Denies vomiting Musculoskeletal Musculoskeletal: Denies back pain, Denies neck pain and Denies numbness Integumentary/Breasts Skin/Breast: Denies rash Neurologic Neurologic: Denies headache(s), Denies numbness and Denies weakness Hematologic/Lymphatic Hematologic/Lymphatic: Denies easy bleeding and Denies easy bruising PFSH All Active Problems (Updated 10/30/21 @ 20:23 by DINA Morales) Contusion of rib on left side (Acute) SI joint arthritis (Acute) History of total right hip replacement (Acute) Abdominal pain, RUQ (Acute) Tinnitus (Acute 06/27/13) Sensory hearing loss, bilateral (Acute 06/27/13) Injury of head (Acute 06/27/13) Disequilibrium syndrome (Acute 06/27/13) Umbilical hernia (Acute) S/P ventral herniorrhaphy (Acute ~06/02/18) umbilical hernia repair Nailbed laceration, finger (Acute) S/P repair: 04/03/2020 Open fracture of phalanx of left middle finger (Acute) Screening for colon cancer (Acute) Family history of colon cancer (Acute) Stress at home (Acute) Rib pain on left side (Acute) Anxiety (Chronic) Lumbago (Acute) Chronic pain (Chronic) Anemia (Chronic) Family history of breast cancer (Acute) Depression (Chronic) Reflux esophagitis (Acute) Hyperlipidemia (Acute) Osteoarthritis of right hip (Acute) Medical History GERD (gastroesophageal reflux disease) Traumatic arthritis of right hip Surgical History Cholecystectomy Colonoscopy - MAC (~2014) Dilation and curettage EGD - MAC (~2014) Endometrial Ablation Hx of shoulder surgery RTCR 08/2016 Ligation of fallopian tube Family History Other Personal history of malignant neoplasm Social History Smoking/Tobacco Use Status: Never Smoking risk assessment performed?: Yes Alcohol Intake: never Drug use: Never Substance use type: does not use Current gender identity: female Do you feel safe at home: Yes Do you feel safe in your relationship?: Yes Exam Const General: cooperative, healthy appearing, comfortable and no acute distress Orientation: alert, awake and oriented x3 HENMT Head: normal to inspection, normocephalic and atraumatic Face and sinus: normal facial exam Mouth: moist mucous membranes Eyes General: appearance normal, both eyes and all related structures Conjunctivae: conjunctivae normal Neck Neck: normal visual inspection, full ROM, trachea midline, supple and nontender Chest Chest: normal inspection of the chest and tenderness Chest/axillae images: 1. Tenderness, no crepitus. No ecchymosis. Skin is intact. Resp Effort & Inspection: normal respiratory effort and able to speak in complete sentences Auscultation: clear to auscultation bilaterally Cardio Rate: regular rate Rhythm: regular rhythm GI Palpation: soft and nontender Back/Spine/Pelvis Back: No back tenderness Skin General skin exam: no rashes or lesions noted Neuro General: patient alert, patient awake, moves all extremities and no focal motor deficits Cognition: normal cognition Speech: speech normal Gait: normal gait Motor: muscle tone normal throughout Sensory Exam: no sensory deficits noted Extrem General: normal to inspection, full ROM and capillary refill normal Psych Appearance: grossly normal Mental Status: mental status grossly normal Course Vital Signs Vital signs: Vital Signs Temperature 36.7 C 10/30/21 18:31 Pulse 66 10/30/21 18:31 Respiratory Rate 18 10/30/21 18:31 Blood Pressure 126/60 10/30/21 18:31 Pulse Oximetry 98 10/30/21 18:31 Temperature 36.7 C 10/30/21 18:31 Temperature Source Tympanic 10/30/21 18:31 Pulse 66 10/30/21 18:31 Respiratory Rate 18 10/30/21 18:31 Respiratory Effort Non-Labored 10/30/21 18:41 Blood Pressure 126/60 10/30/21 18:31 Pulse Oximetry 98 10/30/21 18:31 Oxygen Delivery Method Room Air 10/30/21 18:31 Oxygen Flow Rate 0 10/30/21 18:31 Pain Level 7 10/30/21 18:41
--- NOTE | 2021-10-30 19:55 | DI.VRAD_ITS ---
PROCEDURE INFORMATION: Exam: XR Left Ribs Exam date and time: 10/30/2021 7:21 PM Age: 66 years old Clinical indication: Injury or trauma; Fall; Blunt trauma (contusions or hematomas); Rib area TECHNIQUE: Imaging protocol: Radiologic exam of the Left ribs. Views: 2 views. COMPARISON: CR XR RIBS LT W PA LAT CHEST 03/05/2020 9:26 AM FINDINGS: Bones/joints: Normal. Soft tissues: Normal. IMPRESSION: No acute findings. PROCEDURE INFORMATION: Exam: XR Chest Exam date and time: 10/30/2021 7:21 PM Age: 66 years old Clinical indication: Injury or trauma; Fall; Blunt trauma (contusions or hematomas); Rib area TECHNIQUE: Imaging protocol: Radiologic exam of the chest. Views: 2 views. COMPARISON: CR XR CHEST 2V PA LATERAL 06/04/2020 4:49 PM FINDINGS: Lungs: Unremarkable. No consolidation. Pleural spaces: Unremarkable. No pleural effusion. No pneumothorax. Heart/Mediastinum: Unremarkable. No cardiomegaly. Bones/joints: Mild thoracic levoscoliosis. Soft tissues: Soft tissue anchor in the right humeral head. IMPRESSION: No acute cardiopulmonary disease. Dictated and Authenticated by: Eve Fermin MD. Ordering:TIA Abarca MD
[2021-10-30] MEDS: Lidocaine 5% Patch 1 PATCH TP (20:32)
== END 2021-10-30 20:33 | disposition home or self-care (01) ==
PROVIDERS: Emergency Provider Physician Assistant; PCP Nurse Practitioner Family
DX: S20.212A Contusion of left front wall of thorax, initial encounter (principal); W01.0XXA Fall on same level from slipping, tripping and stumbling without subsequent striking against object, initial encounter
CPT/HCPCS: 99283; 71046; 71100; 99284

== ENCOUNTER 2022-03-31 13:40 | Outpatient (CLI) | payer MEDICAID, SELFPAY ==
--- NOTE | 2022-03-31 12:45 | DI.RAD_ITS ---
Exam(s) XR HIP RT AP LAT ONLY EXAM: XR HIP RT AP LAT ONLY INDICATION: R THR. COMPARISON: CR,XR XR HIP RT AP LAT ONLY from 08/20/2021 TECHNIQUE: 2D digital imaging was performed. Two views. FINDINGS: There has been no change in the alignment of the right hip prosthesis or appearance of the surroundin g bone. DATA REPOSITORY: RADIATION DOSE DELIVERED:
--- NOTE | 2022-03-31 13:00 | DI.RAD_ITS ---
Exam(s) XR THUMB RT EXAM: XR THUMB RT CLINICAL HISTORY: eval R thumb CMC pain. TECHNIQUE: 2D digital imaging was performed. Three views. COMPARISON: CR XR FINGER LT MIDDLE from 04/02/2020 FINDINGS: BONES: No acute fracture is present. No bony destructive lesion is seen. JOINTS: No dislocation present. There are severe degenerative changes at the 1st carpal metacarpal j oint with prominent periarticular spurring and joint space narrowing. Small subchondral cysts are se en. The inter phalangeal joint and and 1st metacarpal phalangeal joint are unremarkable. SOFT TISSUE: Normal. 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 DATA REPOSITORY: RADIATION DOSE DELIVERED:
--- NOTE | 2022-03-31 13:00 | DI.RAD_ITS ---
Exam(s) XR THUMB LT EXAM: XR THUMB LT CLINICAL HISTORY: eval pain of left thumb. TECHNIQUE: 2D digital imaging was performed. Three views. COMPARISON: None. FINDINGS: BONES: No acute fracture is present. No bony destructive lesion is seen. JOINTS: No dislocation present. Severe narrowing of the 1st metacarpal metacarpal joint with periart icular spurring and small subchondral cyst formation. There is a bony fragment adjacent to the trape zium. There is some mild subluxation. The interphalangeal joint shows minimal degenerative changes. SOFT TISSUE: Normal. 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 DATA REPOSITORY: RADIATION DOSE DELIVERED:
== END 2022-03-31 13:41 | disposition home or self-care (01) ==
LOC: DIORS 13:41
PROVIDERS: PCP Nurse Practitioner Family; Referring Provider Nurse Practitioner Family; Visit Provider Physician Assistant
DX: M79.644 Pain in right finger(s) (principal); M79.645 Pain in left finger(s); Z96.641 Presence of right artificial hip joint; Z47.1 Aftercare following joint replacement surgery; M18.12 Unilateral primary osteoarthritis of first carpometacarpal joint, left hand; M18.11 Unilateral primary osteoarthritis of first carpometacarpal joint, right hand
CPT/HCPCS: 73140; 73502

== ENCOUNTER 2022-04-11 14:49 | Outpatient (REF) | payer MEDICAID, SELFPAY ==
[2022-04-11 19:27] LABS: Anion Gap 6.2 mmol/L (3-11); BUN 13 mg/dL (7-18); CO2 28.8 mmol/L (21.0-32.0); CREATININE 0.9 mg/dL (0.55-1.02); Calcium 9.5 mg/dL (8.5-10.1); Calculated LDL 151 mg/dL (<100); Chloride 108 mmol/L (98-107); Cholesterol 239 mg/dL (<200); Estimated GFR 71.39 (mL/min/1.73m2); Glucose 93 mg/dL (74-106); HDL Cholesterol 75 mg/dL (40-60); Potassium 4.6 mmol/L (3.5-5.1); Sodium 143 mmol/L (136-145); Triglyceride 68 mg/dL (<150)
== END 2022-04-11 14:50 | disposition home or self-care (01) ==
LOC: NCHCN 14:49
PROVIDERS: PCP Nurse Practitioner Family; Visit Provider Nurse Practitioner Family
DX: E78.5 Hyperlipidemia, unspecified (principal)
CPT/HCPCS: 80048; 80061

== ENCOUNTER 2022-05-22 00:59 | Outpatient (CLI) | payer MEDICAID, SELFPAY ==
--- NOTE | 2022-05-22 | DI.US_ITS ---
Exam(s) US PELVIS TRANSVAGINAL EXAM: US PELVIS TRANSVAGINAL CLINICAL HISTORY: PELVIC PAIN, R10.2,FAMILY H/O BREAST CA,H/O ENDOMETRIAL ABLOATION TECHNIQUE: Ultrasound of the pelvis was performed both transabdominal and transvaginal. COMPARISON: US US OR ANESTHESIA from 06/02/2018 FINDINGS: UTERUS: Measures 5 cm length x 2 cm AP x 3 cm wide. There are no uterine fibroids. Endometrial thickness measures 1.2 mm. There is no fluid in the endometrial canal. There are mildly dilated veins in the adnexal regions which may indicate an element of pelvic congest ion syndrome. RIGHT OVARY: Measures 1.7 x 1.4 x 1.2 cm No significant cysts nor masses evident in the right ovary. LEFT OVARY: Measures 1 x 1.4 x 0.8 cm No significant cysts nor masses evident in the left ovary. CUL-DE-SAC: No free fluid evident. IMPRESSION: 1. Normal appearing uterus and age-appropriate endometrium. 2. No abnormal ovarian findings. 3. No free fluid evident in the adnexal regions and cul-de-sac. Some prominent veins are noted in the adnexal regions which may indicate an element of pelvic congest ion syndrome. DATA REPOSITORY:
== END 2022-05-22 01:19 ==
LOC: DI 01:07
PROVIDERS: PCP Nurse Practitioner Family; Visit Provider Nurse Practitioner Family
DX: R10.2 Pelvic and perineal pain (principal)
CPT/HCPCS: 76830; 76856

== ENCOUNTER → 2022-11-21 01:16 | Outpatient (CLI) | payer OTHER, MEDICARE, SELFPAY ==
--- NOTE | 2022-11-21 08:40 | DI.RAD_ITS ---
Exam(s) XR FOOT LT COMPLETE EXAM: XR FOOT LT COMPLETE CLINICAL HISTORY: LT FOOT PAIN, [id number]. TECHNIQUE: 2D digital imaging was performed. Three views. COMPARISON: No exams were available for comparison FINDINGS: BONES: No acute fracture is present. No bony destructive lesion is seen. Heel spurs. JOINTS: No dislocation present. SOFT TISSUE: Soft tissue swelling lateral to the 5th MTP joint. IMPRESSION: Fracture DATA REPOSITORY: RADIATION DOSE DELIVERED:
== END ==
PROVIDERS: PCP Nurse Practitioner Family; Visit Provider Nurse Practitioner Family
DX: M79.672 Pain in left foot (principal)
CPT/HCPCS: 73630

== ENCOUNTER → 2022-12-26 12:08 | Outpatient (CLI) | payer OTHER, MEDICARE, SELFPAY ==
--- NOTE | 2022-12-26 | DI.RAD_ITS ---
Exam(s) XR HIP RT COMPLETE AP PELVIS EXAM: XR HIP RT COMPLETE AP PELVIS INDICATION: RT HIP JOINT PAIN [id number]. COMPARISON: CR XR HIP RT AP LAT ONLY from 03/31/2022 TECHNIQUE: 2D digital imaging was performed. Three views. FINDINGS: There has been no change in the alignment of the right hip prosthesis. There are no abnormal surroun ding bony lucencies. The left hip joint space is maintained. Tubal ligation clips are noted. There are degenerative changes in the lower lumbar spine. IMPRESSION: No acute abnormality. Stable appearance of hip prosthesis. DATA REPOSITORY: RADIATION DOSE DELIVERED:
== END ==
PROVIDERS: PCP Nurse Practitioner Family; Visit Provider Nurse Practitioner Family
DX: M25.551 Pain in right hip (principal); Z47.1 Aftercare following joint replacement surgery; Z96.641 Presence of right artificial hip joint
CPT/HCPCS: 73502

== ENCOUNTER 2023-04-29 17:57 | Emergency (ER) | payer MEDICARE, SELFPAY ==
--- NOTE | 2023-04-29 18:00 | DI.RAD_ITS ---
Exam(s) XR RIBS RT W PA LAT CHEST CLINICAL HISTORY: FALL. COMPARISON: CR,XR XR RIBS LT W PA LAT CHEST from 10/30/2021 TECHNIQUE:: PA and lateral views of the chest and four views of the right ribs were performed. FINDINGS: LUNGS:Clear. No pleural abnormality seen. HEART: Normal. MEDIASTINUM: Normal. BONES: No displaced rib fracture is seen. No bony destructive lesion is seen. IMPRESSION: 1. Unremarkable radiographic appearance of the right ribs. 2. No acute pulmonary findings.
[2023-04-29 18:06] VITALS: BP 146/62; PULSE 69; RESP 16; TEMP 36.4; O2SAT 100
[2023-04-29] MEDS: Ketorolac 10 MG TAB PO (18:24)
[2023-04-29] MEDS: Lidocaine 5% Patch 1 PATCH TP (19:00)
--- NOTE | 2023-04-29 19:16 | ED.GENADUL_ITS ---
HPI General Date/Time Provider Initiated Documentation: 04/29/23 18:09 . Limitations to Documentation: no limitations . Information obtained by: patient . HPI Narrative: 67-year-old female with past medical history of arthritis, umbilical hernia presents for evaluation of right-sided rib pain. 4 days ago the patient reports that she slipped on the ice and fell onto her right side. She did not hit her head or lose consciousness. She reports that she hit the right side of her body. She localizes pain to the right side of her ribs. Worse with deep breaths. No difficulty breathing. Has been taking 1 Aleve per day. Discussed this pain with her primary care provider who advised that she come to the emergency department for further evaluation. Related Data Home Medications Medication Instructions Recorded Confirmed omeprazole 20 mg capsule,delayed 20 mg PO HS 08/19/12 04/29/23 release Fish Oil 1 tab PO HS 05/18/14 04/29/23 multivitamin (Daily Multi-Vitamin 1 ea PO HS 05/18/14 04/29/23 tablet) aspirin 81 mg tablet,delayed 81 mg PO DAILY 03/31/22 04/29/23 release lidocaine 5 % topical patch 1 patch topical DAILY #15 ea 04/29/23 (Lidoderm) lidocaine 5 % topical patch 1 patch topical DAILY #15 ea 04/29/23 (Lidoderm) Previous Rx's Medication Instructions Recorded lidocaine 5 % topical patch 1 patch topical DAILY #15 ea 04/29/23 (Lidoderm) lidocaine 5 % topical patch 1 patch topical DAILY #15 ea 04/29/23 (Lidoderm) Allergies Allergy/AdvReac Type Severity Reaction Status Date / Time acetaminophen [From Percocet] Allergy Intermediate unknown Verified 04/29/23 18:05 oxycodone [From Percocet] Allergy Intermediate unknown Verified 04/29/23 18:05 tramadol Allergy Mild unknown Verified 04/29/23 18:05 cyclobenzaprine AdvReac Intermediate excessive Verified 04/29/23 18:05 sedatio General Stated Complaint: Chest/Rib KIET: 4 PFSH All Active Problems Fall (Acute) Contusion of rib on right side (Acute) Pain in hip region after total hip replacement (Acute) Arthritis of carpometacarpal (CMC) joint of left thumb (Acute) Arthritis of carpometacarpal (CMC) joint of right thumb (Acute) SI joint arthritis (Acute) Abdominal pain, RUQ (Acute) Tinnitus (Acute 06/27/13) Sensory hearing loss, bilateral (Acute 06/27/13) Injury of head (Acute 06/27/13) Disequilibrium syndrome (Acute 06/27/13) Umbilical hernia (Acute) S/P ventral herniorrhaphy (Acute ~06/02/18) umbilical hernia repair Nailbed laceration, finger (Acute) S/P repair: 04/03/2020 Open fracture of phalanx of left middle finger (Acute) Screening for colon cancer (Acute) Family history of colon cancer (Acute) Stress at home (Acute) Rib pain on left side (Acute) Anxiety (Chronic) Lumbago (Acute) Chronic pain (Chronic) Anemia (Chronic) Family history of breast cancer (Acute) Depression (Chronic) Reflux esophagitis (Acute) Hyperlipidemia (Acute) Osteoarthritis of right hip (Acute) Medical History Traumatic arthritis of right hip GERD (gastroesophageal reflux disease) Surgical History History of total right hip replacement (03/12/21) Hx of shoulder surgery RTCR 08/2016 Ligation of fallopian tube Endometrial Ablation EGD - MAC (~2014) Dilation and curettage Colonoscopy - MAC (~2014) Cholecystectomy Family History Other Personal history of malignant neoplasm Social History Smoking/Tobacco Use Status: Never Smoking risk assessment performed?: Yes Alcohol Intake: never Drug use: Never Substance use type: does not use Housing: house Current gender identity: female Do you feel safe at home: Yes Do you feel safe in your relationship?: Yes Exam Narrative Exam Narrative: Review of Systems: All systems reviewed & are unremarkable except as noted in HPI and below Well-developed, no acute distress NACT PERRL, normal conjunctiva RRR Unlabored respiratory effort Tenderness along the lower rib margin, particularly in the anterior ribs, no contusion appreciated no flail chest Nondistended abdomen , no tenderness Extremities w/o deformity, no cyanosis, no edema No rashes or lesions. no focal neurologic deficits Appropriate mood and affect Course Vital Signs Vital signs: Vital Signs Temperature 36.4 C L 04/29/23 18:06 Pulse 69 04/29/23 18:06 Respiratory Rate 16 04/29/23 18:06 Blood Pressure 146/62 H 04/29/23 18:06 Pulse Oximetry 100 04/29/23 18:06 Temperature 36.4 C L 04/29/23 18:06 Temperature Source Temporal Artery Scan 04/29/23 18:06 Pulse 69 04/29/23 18:06 Respiratory Rate 16 04/29/23 18:06 Respiratory Effort Normal, Non-Labored 04/29/23 18:14 Respiratory Depth Normal 04/29/23 18:14 Respiratory Pattern Normal 04/29/23 18:14 Blood Pressure 146/62 H 04/29/23 18:06 Blood Pressure Position Sitting 04/29/23 18:06 Pulse Oximetry 100 04/29/23 18:06 Oxygen Delivery Method Room Air 04/29/23 18:06 Oxygen Flow Rate 0 04/29/23 18:06 Pain Level 7 04/29/23 18:14 Medical Decision Making Emergent evaluation of right-sided chest pain after fall. Initial differential includes fracture, contusion, doubt pneumothorax or other intrathoracic injury. Fall occurred 4 days ago. Very undermedicated with only 1 Aleve per day. Offered stronger pain medication in the emergency department, but patient declines. X-ray imaging obtained. No signs of rib fracture or other intrathoracic abnormality. Recommend lidocaine patch, continued Aleve and Tylenol. Follow-up as needed. The patient was provided an incentive spirometer to use at home to prevent atelectasis and pneumonia. Medical Records Medical records reviewed: Yes I reviewed the patient's medical records. Quality:[facility] Health Related Social Needs: No Data to Display Discharge Plan Disposition Patient Disposition: Home Condition: Good Discharge Details Clinical Impression: Contusion of rib on right side, Fall Primary Care Provider: Wenyd Cook ED Provider: Jennifer Dao Home Meds and New Rx's Prescriptions: New lidocaine [Lidoderm] 5 % adhesive patch,medicated 1 patch topical DAILY Qty: 15 0RF Rx Instructions: leave on most painful area for up to 12 hrs Continued lidocaine [Lidoderm] 5 % adhesive patch,medicated 1 patch topical DAILY Qty: 15 0RF Rx Instructions: leave on most painful area for up to 12 hrs No Action aspirin 81 mg tablet,delayed release (DR/EC) 81 mg PO DAILY multivitamin [Daily Multi-Vitamin] 1 EACH tablet 1 ea PO HS FISH OIL 1 tab PO HS omeprazole 20 MG capsule,delayed release(DR/EC) 20 mg PO HS Discharge Instructions Instructions: Rib Contusion (ED) Additional Instructions: APPLY LIDODERM PATCH TO AREA OF PAIN CONTINUE ALLEVE OR TYLENOL FOR PAIN USE PROVIDED INCENTIVE SPIROMETRY EVERY 1-2 HOURS WHILE AWAKE AT HOME TO PREVENT PNEUMONIA
== END 2023-04-29 19:12 | disposition home or self-care (01) ==
PROVIDERS: Emergency Provider Emergency Medicine; PCP Nurse Practitioner Family
DX: S20.211A Contusion of right front wall of thorax, initial encounter (principal); W00.0XXA Fall on same level due to ice and snow, initial encounter; Y93.01 Activity, walking, marching and hiking; Z79.82 Long term (current) use of aspirin
CPT/HCPCS: 99283; 71046; 71100

== ENCOUNTER → 2023-05-27 01:01 | Outpatient (CLI) | payer MEDICARE, OTHER, SELFPAY ==
--- NOTE | 2023-05-27 07:15 | DI.CT_ITS ---
Exam(s) CT LOWER EXTREMITY RT WO EXAM: CT LOWER EXTREMITY RT WO CLINICAL HISTORY: hip PAIN, ? INFECTION/LOOSENING,s/p replacement,T84.84xa,z96.649. TECHNIQUE: Imaging Protocol: Axial computed tomography images with coronal and sagittal reformatted images were created and reviewed. CONTRAST MATERIAL: Intravenous: Omnipaque 350 Contrast volume:structured data in ml Contrast route:IV - COMPARISON: CR XR PELVIS AP from 02/27/2021 CR,XR XR HIP RT AP LAT ONLY from 08/20/2021 CR XR HIP RT COMPLETE AP PELVIS from 12/26/2022 FINDINGS: Bones: There is no evidence of fracture or dislocation. No cellulitic or osteomyelitic changes are identified. No lytic or sclerotic lesions are identified. Subchondral cysts noted in superior acetabulum pre-exis kary the placement of the hip prosthesis. Joints: Right hip prosthesis. No abnormal surrounding bony lucencies. Soft Tissues: Normal. No hematoma. Visualized portions pelvis are unremarkable. IMPRESSION: Right hip prosthesis. No evidence of loosening or infection. RADIATION DOSE DELIVERED: 277.24mGy.cm Total DLP DATA REPOSITORY: All CT scans at this facility are submitted to the National Radiology Data Registry (NRDR) Dose Index Registry (DIR) with the [employer] (ACR). RADIATION OPTIMIZATION: All CT scans at this facility use at least one of these dose optimization te chniques: automated exposure control; mA and/or kV adjustment per patient size (includes targeted exa ms where dose is matched to clinical indication); or iterative reconstruction.
--- NOTE | 2023-05-27 07:15 | DI.NM_ITS ---
Exam(s) NM BONE SCAN 3 PHASE EXAM: NM BONE SCAN 3 PHASE CLINICAL HISTORY: PAIN, ? INFECTION,?LOOSENING,T84.84xa,Z96.641. TECHNIQUE: Injected Dose: 25 mCi Tc-99m MDP COMPARISON: CR XR HIP RT COMPLETE AP PELVIS from 12/26/2022 CR XR RIBS RT W PA LAT CHEST from 04/29/[address] LOWER EXTREMITY RT WO from 05/27/2023 FINDINGS: Perfusion: Symmetric. Blood Pool: Symmetric. Delayed: No focal area of intense suspicious uptake is seen. Photopenic area corresponding to the ri ght hip prosthesis. No abnormal surrounding labeling. Areas of increased labeling seen in anterior lower right ribs, presumably posttraumatic. Increased activity in both wrists, likely degenerative tear. IMPRESSION: No evidence of abnormal activity surrounding the right hip prosthesis. DATA REPOSITORY:
[2023-05-27 10:57] LABS: ESR 6 mm/hr (0-30)
[2023-05-27 11:11] LABS: C-Reactive Protein < 0.50 mg/dL (<or=0.5)
== END ==
PROVIDERS: PCP Nurse Practitioner Family; Visit Provider Student in an Organized Health Care Education/Training Program
DX: T84.84XA Pain due to internal orthopedic prosthetic devices, implants and grafts, initial encounter (principal); Z96.641 Presence of right artificial hip joint
CPT/HCPCS: 85652; 73700; 78315; 86140

== ENCOUNTER → 2023-07-02 13:56 | Outpatient (BNVA) | payer MEDICARE, SELFPAY | PROVIDERS: PCP Nurse Practitioner Family; Referring Provider Nurse Practitioner Family; Visit Provider Student in an Organized Health Care Education/Training Program | DX: Z47.1 Aftercare following joint replacement surgery (principal); M70.71 Other bursitis of hip, right hip; Z96.641 Presence of right artificial hip joint; T84.84XA Pain due to internal orthopedic prosthetic devices, implants and grafts, initial encounter | CPT/HCPCS: 20611; J1040 ==

== ENCOUNTER → 2023-07-10 00:01 | Outpatient (CLI) | payer MEDICARE, SELFPAY ==
--- NOTE | 2023-07-10 08:34 | DI.MAMMO_ITS ---
Exam(s) MAMMO SCREENING EXAM: MAMMO SCREENING CLINICAL HISTORY: SCREENING MAMMO FOR BREAST CANCER Z12.31 TECHNIQUE: Mammograms were interpreted according to the usual protocol including computer analysis w Re.nooble CAD system, tomosynthesis and C-view imaging. COMPARISON: 2018 through 2022 FINDINGS: The breasts are composed of scattered fibroglandular densities, Breast Density category B. No suspicious masses or suspicious microcalcifications are seen. No skin thickening or abnormal axillary lymph nodes are seen. There has been no significant change from prior exams. IMPRESSION: BI-RADS Category 1, Negative mammogram Yearly screening mammography is recommended. Breast Density - Category B, scattered fibroglandular densities. A negative radiographic report should not delay biopsy if a dominant or clinically suspicious mass is present. Up to ten percent of cancers are not identified on mammography. A negative report may reinforce clinical impression. Adenosis and dense breasts may obscure an underlying neoplasm. False positive reports average 6 to 10%. Patient will receive a letter notifying them of these results.
--- NOTE | 2023-07-10 08:37 | DI.DEXA_ITS ---
Exam(s) XR DEXA BONE DENSITY W/WO PAULINE EXAM: XR DEXA BONE DENSITY W/WO PAULINE CLINICAL HISTORY: MENOPAUSAL STATE Z78.0 SCREENING FOR OSTEOPOROSIS TECHNIQUE: COMPARISON: CR XR DEXA BONE DENSITY W/WO PAULINE from 05/29/2021 FINDINGS: Lateral Spine Image: Unremarkable. No compression deformities identified. Left hip: Total T-Score: -0.8. This compares to -0.8 from the examination from 05/29/2021. Total Z-Score: 0.5 T- and Z-scores: Within normal limits. No evidence of osteoporosis. Lumbar Spine: Total T-Score: -0.7. This compares to -0.5 on the prior examination. Total Z-Score: 1.1 T- and Z-scores: Within normal limits. No evidence of osteoporosis. IMPRESSION: No evidence of osteoporosis.
== END ==
PROVIDERS: PCP Nurse Practitioner Family; Visit Provider Nurse Practitioner Family
DX: Z12.31 Encounter for screening mammogram for malignant neoplasm of breast (principal); R92.323 Mammographic fibroglandular density, bilateral breasts; Z13.820 Encounter for screening for osteoporosis; Z78.0 Asymptomatic menopausal state
CPT/HCPCS: 77063; 77067; 77080

== ENCOUNTER → 2023-08-21 00:24 | Outpatient (CLI) | payer MEDICARE, SELFPAY ==
--- NOTE | 2023-08-21 | DI.US_ITS ---
Exam(s) US PELVIS TRANSVAGINAL EXAM: US PELVIS TRANSVAGINAL CLINICAL HISTORY: LLQ PAIN,R10.32 TECHNIQUE: Transabdominal and transvaginal imaging was performed using standard protocol. COMPARISON: US US PELVIS TRANSVAGINAL from 05/22/2022 FINDINGS: UTERUS: Anteverted. 5.2 x 2.2 x 3 point cm Endometrium: 2 mm Myometrium: Unremarkable. Cervix: Unremarkable. OVARIES: The ovaries were unable to be visualized on today's exam. CUL-DE-SAC: Free fluid: None. IMPRESSION: 1. Normal-appearing uterus with endometrial stripe within normal limits. 2. The ovaries were not visualized. DATA REPOSITORY:
== END ==
PROVIDERS: PCP Nurse Practitioner Family; Visit Provider Nurse Practitioner Family
DX: R10.32 Left lower quadrant pain (principal)
CPT/HCPCS: 76830; 76856

== ENCOUNTER 2023-11-06 12:08 | Outpatient (REF) | payer MEDICARE, SELFPAY ==
[2023-11-06 15:12] LABS: Abs Immature Grans 0.01 10^3/uL (0.0-0.06); Absolute Basophil Count 0.08 10^3/uL (0.0-0.2); Absolute Lymphocyte Count 1.97 10^3/uL (1.2-3.4); Absolute Neutrophil Count 2.94 10^3/uL (1.2-6.7); Basophils % 1.5 %; Eosinophils % 3.6 %; HCT 49.2 % (36.0-46.0); HGB 16.2 g/dL (11.2-15.7); Immature Grans % 0.2 %; Lymphocytes % 35.8 %; MCHC 32.9 % (32.0-36.0); MCV 88 fL (80-95); Monocytes % 5.5 %; Neutrophils % 53.4 %; Platelet Count 190 10^3/uL (130-400); RBC 5.58 10^6/uL (3.93-5.22); RDW 12.4 % (11.7-14.6); RDW-SD 40.4 fL
[2023-11-06 15:28] LABS: Hemoglobin A1C 5.4 % (<5.7)
[2023-11-06 15:29] LABS: ALT 46 U/L (14-59); AST 32 U/L (15-37); Albumin 4.1 g/dL (3.4-5.0); Alkaline Phosphatase 113 U/L (46-116); BUN 16 mg/dL (7-18); Bilirubin, Total 0.69 mg/dL (0.2-1.0); Calcium 9.8 mg/dL (8.5-10.1); Calculated LDL 167 mg/dL (<100); Chloride 107 mmol/L (98-107); Cholesterol 262 mg/dL (<200); Estimated GFR 62.13 (mL/min/1.73m2); Glucose 103 mg/dL (74-106); HDL Cholesterol 86 mg/dL (40-60); Magnesium 2.2 mg/dL (1.8-2.4); Potassium 4.5 mmol/L (3.5-5.1); Sodium 142 mmol/L (136-145); Total Protein 7.4 g/dL (6.4-8.2); Triglyceride 46 mg/dL (<150)
== END 2023-11-06 12:09 | disposition home or self-care (01) ==
LOC: NCHCN 12:08
PROVIDERS: PCP Nurse Practitioner Family; Visit Provider Nurse Practitioner Family
DX: Z00.00 Encounter for general adult medical examination without abnormal findings (principal)
CPT/HCPCS: 80053; 80061; 83036; 83735; 85025

== ENCOUNTER 2024-01-07 18:00 | Outpatient (REF) | payer MEDICARE, SELFPAY ==
[2024-01-07 20:00] LABS: Abs Immature Grans 0.01 10^3/uL (0.0-0.06); Absolute Basophil Count 0.07 10^3/uL (0.0-0.2); Absolute Eosinophil Count 0.22 10^3/uL (0.0-0.7); Absolute Lymphocyte Count 1.95 10^3/uL (1.2-3.4); Absolute Monocyte Count 0.25 10^3/uL (0.1-0.8); Absolute Neutrophil Count 2.16 10^3/uL (1.2-6.7); Basophils % 1.5 %; Eosinophils % 4.7 %; HCT 48.7 % (36.0-46.0); HGB 15.9 g/dL (11.2-15.7); Immature Grans % 0.2 %; Lymphocytes % 41.8 %; MCH 28.8 pg (27.0-33.0); MCHC 32.6 % (32.0-36.0); MCV 88 fL (80-95); MPV 11.6 fL (8.0-11.0); Monocytes % 5.4 %; Neutrophils % 46.4 %; Platelet Count 226 10^3/uL (130-400); RBC 5.53 10^6/uL (3.93-5.22); RDW 12.3 % (11.7-14.6); RDW-SD 39.4 fL; WBC 4.66 10^3/uL (4.4-10.8)
== END 2024-01-07 18:01 | disposition home or self-care (01) ==
LOC: NCHCN 18:00
PROVIDERS: PCP Nurse Practitioner Family; Visit Provider Nurse Practitioner Family
DX: Z00.00 Encounter for general adult medical examination without abnormal findings (principal)
CPT/HCPCS: 85025

== ENCOUNTER 2024-02-04 10:59 | Outpatient (REF) | payer MEDICARE, SELFPAY ==
[2024-02-08 18:41] LABS: Erythropoietin 6.1 mIU/mL (2.6 - 18.5)
[2024-02-12 11:54] LABS: JAK2 Result see interpretation
== END 2024-02-04 11:00 | disposition home or self-care (01) ==
LOC: NCHCN 10:59
PROVIDERS: PCP Nurse Practitioner Family; Visit Provider Nurse Practitioner Family
DX: R71.8 Other abnormality of red blood cells (principal)
CPT/HCPCS: 82668; 81270

== ENCOUNTER → 2024-03-28 10:08 | Outpatient (BNVA) | payer MEDICARE, SELFPAY | PROVIDERS: PCP Nurse Practitioner Family; Referring Provider Nurse Practitioner Family; Visit Provider Surgery | DX: K21.00 Gastro-esophageal reflux disease with esophagitis, without bleeding (principal) | CPT/HCPCS: 99214 ==

== ENCOUNTER 2024-05-01 14:56 | Emergency (ER) | payer MEDICARE, SELFPAY ==
[2024-05-01 14:57] VITALS: BP 132/83; PULSE 72; RESP 18; TEMP 36.1; O2SAT 96
--- NOTE | 2024-05-01 15:00 | DI.RAD_ITS ---
Exam(s) XR KNEE LT 3V AP,LAT,DWAYNE EXAM: XR KNEE LT 3V AP,LAT,DWAYNE CLINICAL HISTORY: Fall, medial joint line pain. TECHNIQUE: 2D digital imaging was performed. Three views. COMPARISON: No exams were available for comparison FINDINGS: BONES: No acute fracture is present. No bony destructive lesion is seen. Patellar enthesophyte. JOINTS: The knee is normally aligned. No joint effusion is seen. The joint spaces are maintained. Mi nimal degenerative changes. SOFT TISSUE: Normal. IMPRESSION: No acute abnormality. DATA REPOSITORY: RADIATION DOSE DELIVERED:
--- NOTE | 2024-05-01 15:12 | DI.RAD_ITS ---
Exam(s) XR RIBS RT W PA LAT CHEST CLINICAL HISTORY: Fall. R. costal margin pain. COMPARISON: CR XR RIBS RT W PA LAT CHEST from 04/29/2023 TECHNIQUE:: PA and lateral views of the chest and four views of the right ribs were performed. FINDINGS: LUNGS:Clear. No pleural abnormality seen. HEART: Normal. MEDIASTINUM: Normal. BONES: No displaced rib fracture is seen. No bony destructive lesion is seen. Soft tissues: Right upper quadrant surgical clips. Post surgical changes at the right humeral head. IMPRESSION: 1. Unremarkable radiographic appearance of the right ribs. 2. No acute pulmonary findings.
[2024-05-01] MEDS: Ibuprofen 600 MG TAB PO (15:16)
[2024-05-01] MEDS: Acetaminophen 500 MG TAB 1000 MG PO (15:16)
--- NOTE | 2024-05-01 15:30 | W.ED.GENAD ---
Discharge Plan Disposition Patient Disposition: Home Condition: Stable Discharge Details Clinical Impression: Injury of knee, left, Contusion of rib on right side Primary Care Provider: Wendy Cook ED Provider: Christelle Joy Home Meds and New Rx's Prescriptions: New diclofenac sodium 1 % gel 2 g topical QID Qty: 100 0RF Rx Instructions: apply to single elbow, knee, wrist or hand; for hand includes palm/fingers/back of hand No Action aspirin 81 mg tablet,delayed release (DR/EC) 81 mg PO DAILY lidocaine [Lidoderm] 5 % adhesive patch,medicated 1 patch topical DAILY PRN Rx Instructions: leave on most painful area for up to 12 hrs multivitamin [Daily Multi-Vitamin] 1 EACH tablet 1 ea PO HS FISH OIL 1 tab PO HS omeprazole 20 MG capsule,delayed release(DR/EC) 20 mg PO HS Discharge Instructions Instructions: Bruised Rib (DC) Additional Instructions: You were seen in the emergency department today for evaluation after a fall. In our department a full physical examination performed, and had imaging studies that did not show any fractures or other serious bony injuries. You were given a hinged knee brace for support, and if you are not improved in the next week or so you need to follow-up with your primary care provider as well as orthopedics for reassessment. You have bruising of your ribs, and would benefit from taking Tylenol, using your lidocaine patches, and taking either ibuprofen or using diclofenac gel in the areas of pain. Thank you for allowing us to be part of your care. Referrals: Anjel Adrian MD [ [facility] STAFF PHYSICIAN] - 1 week HPI General Mode of arrival: ambulatory. Date/Time Provider Initiated Documentation: 05/01/24 15:00. Limitations to Documentation: no limitations. Information obtained by: patient, family and old records reviewed. HPI Narrative: HPI: This is a 68-year-old female patient with a past medical history significant for musculoskeletal abnormalities including arthritis and bursitis, anemia, depression, hyperlipidemia, who is presenting for evaluation of right rib pain and left knee pain. She reports that she fell 2 weeks ago while walking outside, her dogs ran into her from behind and her left foot was stuck in a rut, and twisted her left knee. She fell, and landed on her right side against the shovel that she was carrying. Since that time, she reports that she has managed her pain primarily with rest and ice, takes and ibuprofen as needed and has felt largely well. She states that she reinjured herself today, again walking and being knocked over by her dogs. She feels worsened pain in those 2 areas of her left knee and right ribs, prompting her to seek care. She reports that her pain is significantly worsened when she bears weight, located in the lateral aspect of the knee radiating into the posterior aspect. She has not noted any skin changes, numbness, weakness, or tingling distal to the injury. She did not experience any medical abnormalities prior to her fall such as dizziness, loss of consciousness, or chest pain. She did not lose consciousness, did not strike her head, and does not take blood thinning medications. The patient states that she did not have any injury to her neck, back, or hips. She does have some mild worsening of her pain when she takes a deep breath in the area of her right anterior costal margin. Exam: Gen: Awake and alert, in no apparent distress HEENT: Non-icteric sclera Neck: Supple Lungs: No apparent respiratory distress, normal respiratory effort. Lung sounds clear and equal bilaterally without wheezes, rhonchi, rales. CV: Appears well perfused, heart regular regular rate and rhythm, no murmurs auscultated. Strong and symmetrical distal pulses Abdomen: Non-distended MSK: Moves 4 extremities without apparent limitation in ROM. No tenderness to palpation of the C/T/L-spine, patient does have point tenderness over the right inferolateral costal margin without overlying skin changes, crepitus, or deformity. She has pain with palpation of the lateral and medial joint lines of the left knee, no palpable effusion, full range of motion, no deformity or skin injuries. She has a firm endpoint with her Yudi's, but some reproduction of pain with valgus and varus stressing without obvious ligamentous laxity on this provider's examination. Skin: Visualized skin without rashes, cyanosis. Neuro: No obvious focal deficits or facial asymmetry. Full strength and sensation bilateral lower extremities. Speaks in full, clear sentences. Psych: Appropriate for situation. MDM: This is a 68-year-old female patient presenting for evaluation after a fall. Differential includes but is not limited to rib fracture, contusion, internal derangement of the knee, fracture and dislocation also considered. The patient has no evidence on my physical examination for neurovascular injury, is not hypoxic and I have a lower concern for pulmonary contusions or pneumothorax. This was a mechanical fall and her history is not consistent with syncope, orthostasis, vasovagal syndrome, arrhythmia, seizure or stroke. She has no evidence on my physical examination for head, spine, or spinal cord injury. We will provide the patient with a dose of Tylenol and ibuprofen and proceed with x-ray imaging of the affected left knee and right ribs. ED Course: I reviewed the patient's x-ray imaging, which shows no evidence of significant joint effusion, bony abnormality, broken rib, or pneumothorax. Her injuries are most consistent with a rib contusion, though certainly internal derangement might still be considered of the left knee. For this reason I placed her in a hinged knee brace, and provided a referral to orthopedics if her symptoms do not improve in the next week or so. I recommended multimodal pain management including Tylenol, ibuprofen or diclofenac, lidocaine patches, ice and elevation. At this time, the patient has had a full medical evaluation and is safe for discharge to home. They are hemodynamically stable, ambulatory, and tolerating PO. They are understanding of the follow-up plan and return precautions. They left our facility without incident. Christelle Joy MD Related Data Home Medications ?Medication ?Instructions ?Recorded ?Confirmed omeprazole 20 mg capsule,delayed 20 mg PO HS 08/19/12 05/01/24 release Fish Oil 1 tab PO HS 05/18/14 05/01/24 multivitamin (Daily Multi-Vitamin 1 ea PO HS 05/18/14 05/01/24 tablet) aspirin 81 mg tablet,delayed 81 mg PO DAILY 03/31/22 05/01/24 release lidocaine 5 % topical patch 1 patch topical DAILY PRN 03/28/24 05/01/24 (Lidoderm) diclofenac sodium 1 % topical gel 2 g topical QID #100 grams 05/01/24 Previous Rx's ?Medication ?Instructions ?Recorded diclofenac sodium 1 % topical gel 2 g topical QID #100 grams 05/01/24 Allergies Allergy/AdvReac Type Severity Reaction Status Date / Time oxycodone (From Percocet) Allergy Intermediate Nausea Verified 05/01/24 15:00 tramadol AdvReac Severe Nausea Verified 05/01/24 15:00 cyclobenzaprine AdvReac Intermediate excessive Verified 05/01/24 15:00 sedatio General Stated Complaint: Fall/Non TraumaCriteria KIET: 4 Course Vital Signs Vital signs: Vital Signs Temperature 36.1 C L 05/01/24 14:57 Pulse 72 05/01/24 14:57 Respiratory Rate 18 05/01/24 14:57 Blood Pressure 132/83 05/01/24 14:57 Pulse Oximetry 96 05/01/24 14:57 Temperature 36.1 C L 05/01/24 14:57 Pulse 72 05/01/24 14:57 Respiratory Rate 18 05/01/24 14:57 Blood Pressure 132/83 05/01/24 14:57 Pulse Oximetry 96 05/01/24 14:57 Medical Decision Making Quality:SDOH Health Related Social Needs: No Data to Display PFSH All Active Problems (Updated 05/01/24 @ 16:36 by Christelle Joy MD) Contusion of rib on right side (Acute) Injury of knee, left (Acute) Iliopsoas bursitis of right hip (Acute) Pain in hip region after total hip replacement (Acute) Arthritis of carpometacarpal (CMC) joint of left thumb (Acute) Arthritis of carpometacarpal (CMC) joint of right thumb (Acute) SI joint arthritis (Acute) Abdominal pain, RUQ (Acute) Tinnitus (Acute 06/27/13) Sensory hearing loss, bilateral (Acute 06/27/13) Injury of head (Acute 06/27/13) Disequilibrium syndrome (Acute 06/27/13) Umbilical hernia (Acute) S/P ventral herniorrhaphy (Acute ~06/02/18) umbilical hernia repair Nailbed laceration, finger (Acute) S/P repair: 04/03/2020 Open fracture of phalanx of left middle finger (Acute) Screening for colon cancer (Acute) Family history of colon cancer (Acute) Stress at home (Acute) Rib pain on left side (Acute) Anxiety (Chronic) Lumbago (Acute) Chronic pain (Chronic) Anemia (Chronic) Family history of breast cancer (Acute) Depression (Chronic) Reflux esophagitis (Acute) Hyperlipidemia (Acute) Osteoarthritis of right hip (Acute) Medical History Traumatic arthritis of right hip GERD (gastroesophageal reflux disease) Surgical History History of total right hip replacement (03/12/21) Hx of shoulder surgery RTCR 08/2016 Ligation of fallopian tube Endometrial Ablation EGD - MAC (~2014) Dilation and curettage Colonoscopy - MAC (~2014) Cholecystectomy Family History Other Personal history of malignant neoplasm Social History Smoking/Tobacco Use Status: Never Smoking risk assessment performed?: Yes Alcohol Intake: never Drug use: Never Substance use type: does not use Housing: house Current gender identity: female Do you feel safe at home: Yes Do you feel safe in your relationship?: Yes
--- NOTE | 2024-05-01 16:29 | DI.VRAD_ITS ---
PROCEDURE INFORMATION: Exam: XR Right Ribs Exam date and time: 05/01/2024 3:33 PM Age: 68 years old Clinical indication: Other: Fall. R. Costal margin pain TECHNIQUE: Imaging protocol: Radiologic exam of the right ribs. Views: 2 views. COMPARISON: CR XR RIBS RT W PA LAT CHEST 04/29/2023 6:36 PM FINDINGS: Bones/joints: Status post surgery of the right humeral head level, presumed rotator cuff repair. No acute fracture seen. Intraperitoneal space: Right upper quadrant calcifications suggest prior cholecystectomy. Soft tissues: Normal. IMPRESSION: No evidence for acute fracture. PROCEDURE INFORMATION: Exam: XR Chest Exam date and time: 05/01/2024 3:33 PM Age: 68 years old Clinical indication: Other: Fall. R. Costal margin pain TECHNIQUE: Imaging protocol: Radiologic exam of the chest. Views: 2 views. COMPARISON: CR XR RIBS RT W PA LAT CHEST 04/29/2023 6:36 PM FINDINGS: Lungs: Unremarkable. No consolidation. Pleural spaces: Unremarkable. No pleural effusion. No pneumothorax. Heart/Mediastinum: Unremarkable. No cardiomegaly. Bones/joints: Unremarkable. IMPRESSION: No evidence for acute abnormality in the chest. Dictated and Authenticated by: Anel Basurto MD. Ordering:PINA Linn MD
--- NOTE | 2024-05-01 16:30 | DI.VRAD_ITS ---
PROCEDURE INFORMATION: Exam: XR Left Knee Exam date and time: 05/01/2024 3:37 PM Age: 68 years old Clinical indication: Other: Fall, medial joint line pain TECHNIQUE: Imaging protocol: Radiologic exam of the left knee. Views: 3 views. COMPARISON: CR XR FOOT LT COMPLETE 11/21/2022 8:35 AM FINDINGS: Bones/joints: Normal. Soft tissues: Normal. IMPRESSION: No evidence for acute posttraumatic abnormality. Dictated and Authenticated by: Anel Basurto MD. Ordering:PINA Linn MD
[2024-05-01 16:44] VITALS: BP 138/72; PULSE 74; RESP 18; O2SAT 97
== END 2024-05-01 16:45 | disposition home or self-care (01) ==
PROVIDERS: Emergency Provider Emergency Medicine; PCP Nurse Practitioner Family
DX: S20.211A Contusion of right front wall of thorax, initial encounter (principal); Z91.81 History of falling; W19.XXXA Unspecified fall, initial encounter; S80.01XA Contusion of right knee, initial encounter
CPT/HCPCS: 29505; 73562; 99284; 71046; 71100; 99283

== ENCOUNTER → 2024-05-16 09:07 | Outpatient (BNVA) | payer MEDICARE, SELFPAY | PROVIDERS: PCP Nurse Practitioner Family; Referring Provider Nurse Practitioner Family | DX: S83.8X2A Sprain of other specified parts of left knee, initial encounter (principal); W19.XXXA Unspecified fall, initial encounter | CPT/HCPCS: 99214 ==

== ENCOUNTER 2024-06-02 13:01 | Outpatient (CLI) | payer MEDICARE, SELFPAY ==
--- NOTE | 2024-06-02 08:30 | DI.MRI_ITS ---
Exam(s) MR LOWER JOINT LT WO EXAM: MR LOWER JOINT LT WO CLINICAL HISTORY: PAIN,INJURY, sprain of other specified parts of l knee in. [id number]. TECHNIQUE: Multiplanar multisequence MRI was performed. COMPARISON: CR,XR XR KNEE LT 3V AP,LAT,DWAYNE from 05/01/2024 FINDINGS: BONES: There is no fracture or contusion pattern. Small subchondral cysts and mild edema seen in the proximal tibia in the region of the tibial spines. JOINTS: There is thinning of the articular cartilage and mild subchondral edema seen in the patella. There is thinning of the articular cartilage in the lateral femoral tibial joint. There is a small joint effusion. TENDONS: Extensor mechanism: Unremarkable. Medial retinaculum: Unremarkable. Lateral retinaculum: Unremarkable. Popliteus: Unremarkable. MUSCLES: Unremarkable. MENISCI: The medial meniscus is unremarkable. There is linear hyperintense signal seen in the body o f the lateral meniscus consistent with a tear. SOFT TISSUES: There is a popliteal cyst present. LIGAMENTS: Anterior Cruciate: There is increased signal seen with in the anterior cruciate ligament with intact fibers suggesting mucoid degeneration. Posterior Cruciate: Unremarkable. Medial Collateral:Unremarkable. Lateral Collateral: Unremarkable. OTHER: IMPRESSION: 1. Tear of the body of the lateral meniscus. 2. Hyperintense signal seen in the anterior cruciate ligament with intact fibers suggesting mucoid de generation. 3. Popliteal cyst. 4. Degenerative changes seen in all 3 joint compartments. DATA REPOSITORY:
== END 2024-06-02 13:21 ==
LOC: DI 13:03
PROVIDERS: PCP Nurse Practitioner Family; Visit Provider Student in an Organized Health Care Education/Training Program
DX: S83.281A Other tear of lateral meniscus, current injury, right knee, initial encounter (principal); W19.XXXA Unspecified fall, initial encounter
CPT/HCPCS: 73721

== ENCOUNTER → 2024-06-13 15:04 | Outpatient (BNVA) | payer MEDICARE, SELFPAY | PROVIDERS: PCP Nurse Practitioner Family; Referring Provider Nurse Practitioner Family; Visit Provider Student in an Organized Health Care Education/Training Program | DX: S83.282A Other tear of lateral meniscus, current injury, left knee, initial encounter (principal); T84.84XA Pain due to internal orthopedic prosthetic devices, implants and grafts, initial encounter; M70.61 Trochanteric bursitis, right hip; Z96.641 Presence of right artificial hip joint | CPT/HCPCS: 99214 ==

== ENCOUNTER 2024-07-06 10:12 | Day surgery (SDC) | payer MEDICARE, SELFPAY ==
[2024-07-06] VITALS (22 sets, daily range): BP systolic 139–180; BP diastolic 65–127; PULSE 48–113; RESP 13–22; TEMP 36.3–37.1; O2SAT 97–100; BMI 25.9
[2024-07-06] MEDS: Celecoxib 200 MG CAP 400 MG PO (11:25)
[2024-07-06] MEDS: Acetaminophen 500 MG TAB 1000 MG PO (11:25)
--- NOTE | 2024-07-06 11:33 | W.ANESPRE ---
General Info Date of Service Date Performed: 07/06/24 Height: 5 ft 7 in Weight: 75.296 kg Body Mass Index (BMI): 25.9 Surgical Procedure: Operation Date: 07/06/24 12:55 Proposed Procedure Side Surgeon p Knee Arthroscopy, Partial Lateral Meniscectomy Left Anjel Adrian MD Meds Allergies and Home Medications Allergies Allergy/AdvReac Type Severity Reaction Status Date / Time oxycodone (From Percocet) Allergy Intermediate Nausea Verified 07/06/24 10:53 tramadol AdvReac Severe Nausea Verified 07/06/24 10:53 cyclobenzaprine AdvReac Intermediate excessive Verified 07/06/24 10:53 sedatio Home Medication ?Medication ?Instructions ?Recorded omeprazole 20 mg capsule,delayed 20 mg PO HS 08/19/12 release Fish Oil 1 tab PO HS 05/18/14 multivitamin (Daily Multi-Vitamin 1 ea PO HS 05/18/14 tablet) aspirin 81 mg tablet,delayed 81 mg PO DAILY 03/31/22 release lidocaine 5 % topical patch 1 patch topical DAILY PRN 03/28/24 (Lidoderm) diclofenac sodium 1 % topical gel 2 g topical QID #100 grams 05/01/24 acetaminophen 500 mg tablet 500 mg PO ONCE 07/06/24 (Acetaminophen Extra Strength) Current Visit Medications: Current Medications Generic Name Dose Route Start Last Admin Trade Name Freq PRN Reason Stop Dose Admin Acetaminophen 1,000 mg 07/06/24 06:00 07/06/24 11:25 Acetaminophen 500 Mg Tab PO 07/06/24 23:59 1,000 mg PREOP ELHAM Administration Celecoxib 400 mg 07/06/24 06:00 07/06/24 11:25 Celecoxib 200 Mg Cap PO 07/06/24 23:59 400 mg PREOP ELHAM Administration Ringer's Solution 1,000 mls @ 80 mls/hr 07/06/24 06:00 IV 07/06/24 23:59 INFUSION ELHAM Cefazolin Sodium/Dextrose 2 gm in 50 mls @ 100 mls/hr 07/06/24 06:00 Ancef Duplex IVPB 07/06/24 23:59 PREOP ELHAM Tranexamic Acid/Sodium Chloride 1,000 mg in 100 mls @ 600 mls/hr 07/06/24 06:00 IVPB 07/06/24 23:59 PREOP ELHAM IV Miscellaneous Supplies 1 each 07/06/24 06:00 Iv Access IV 07/06/24 23:59 DIRECTED ELHAM Sodium Chloride 0 ml 07/06/24 06:00 Normal Saline Flush 10 Ml Syr IV 07/06/24 23:59 PRN PRN Sodium Chloride 0 ml 07/06/24 06:00 Normal Saline 10 Ml Vial IJ 07/06/24 23:59 DIRECTED PRN Sterile Water 0 ml 07/06/24 06:00 Water,Injection,Sterile 10 Ml Vial IJ 07/06/24 23:59 DIRECTED PRN PFSH Active Problems Active Problems: Problem Status Onset Code Acute lateral meniscus tear of left knee Acute S83.282A Trochanteric bursitis, right hip Acute M70.61 Iliopsoas bursitis of right hip Acute M70.71 Pain in hip region after total hip replacement Acute T84.84XA, Z96.649 Arthritis of carpometacarpal (CMC) joint of left thumb Acute M18.12 Arthritis of carpometacarpal (CMC) joint of right thumb Acute M18.11 SI joint arthritis Acute M47.818 Abdominal pain, RUQ Acute R10.11 Tinnitus Acute 06/27/13 H93.19 Sensory hearing loss, bilateral Acute 06/27/13 H90.3 Injury of head Acute 06/27/13 S09.90XA Disequilibrium syndrome Acute 06/27/13 E87.8 Umbilical hernia Acute K42.9 S/P ventral herniorrhaphy Acute ~06/02/18 Z98.890, Z87.19 Umbilical hernia without obstruction and without gangrene Resolved K42.9 Nailbed laceration, finger Acute Open fracture of phalanx of left middle finger Acute S62.603B Screening for colon cancer Acute Z12.11 Family history of colon cancer Acute Z80.0 Stress at home Acute F43.9 Rib pain on left side Acute R07.81 Anxiety Chronic F41.9 Lumbago Acute M54.5 Chronic pain Chronic G89.29 Anemia Chronic D64.9 Family history of breast cancer Acute Z80.3 Depression Chronic F32.9 Reflux esophagitis Acute K21.00 Hyperlipidemia Acute E78.5 Osteoarthritis of right hip Acute M16.11 Medical History Medical History Traumatic arthritis of right hip GERD (gastroesophageal reflux disease) Surgical History Surgical History History of total right hip replacement (03/12/21) Hx of shoulder surgery RTCR 08/2016 Ligation of fallopian tube Endometrial Ablation EGD - MAC (~2014) Dilation and curettage Colonoscopy - MAC (~2014) Cholecystectomy Tobacco Smoking/Tobacco Use Status: Never Passive smoking exposure: Yes Alcohol Alcohol Intake: never Substance Use Substance use: Never Substance use type: does not use Vital Signs and Lab Results Vital Signs Most Recent Vital Signs in EMR: Most Recent Vital Signs Temp Pulse BP Pulse Ox 36.7 C 60 146/65 H 100 07/06/24 11:01 07/06/24 11:01 07/06/24 11:01 07/06/24 11:01 Lab Results Blood Type / Crossmatch: No Data to Display Complete Blood Count: No Data to Display Complete Metabolic Panel: No Data to Display Liver Function Panel: No Data to Display Coagulation Panel: No Data to Display Cardiac Panel: No Data to Display Arterial Blood Gas: No Data to Display Venous Blood Gas: No Data to Display Pancreas Panel: No Data to Display Thyroid Panel: No Data to Display Infectious Disease: No Data to Display Blood Cultures: No Data to Display Toxicology Panel: No Data to Display Imaging and Studies Imaging and Studies Study information below may be from another EMR and interpreted by another provider. Please see original notes in EMR for more complete details. EKG Summary: 06/04/20 Conclusion Sinus rhythm...normal P axis, V-rate 60- 99 Atrial premature complex...SV complex w/ short R-R interval I have reviewed and interpreted ECG and agree with software generated interpretation. Stress Test Summary: 06/07/20 Stress ECG Conclusion 1. The resting electrocardiogram was within normal limits. The patient exercised on the Gunner protocol and completed a workload of 10.31 METS, stopping due to fatigue 2. Normal heart rate and blood pressure response to exercise. The patient achieved 100% of predicted heart rate for age 3. At peak exercise there was J-point depression and upsloping ST segments notably in the anterolateral leads. These did not meet criteria for myocardial ischemia 4. Occasional ventricular ectopic beats were noted Schaefer Treadmill Score is 8.2 which is Low risk. Anesthesia Assessment and Plan Anesthesia History Personal History: No History of Anesthesia Complications Family History: No Family History of Anesthesia Complications Exercise Tolerance Exercise Tolerance: Metabolic Equivalents>4 Pertinent Negatives Pertinent Negatives: No Symptoms of GERD and No Major Cardiovascular Symptoms or Complaints Cardiac & Pulmonary Exam Cardiac Exam: Normal S1/S2 Heart Sounds Pulmonary Exam: Clear Bilateral Breath Sounds Implantable Cardiac Device Does patient have a Pacemaker or an ICD?: No Airway Exam Known Difficult Airway: No Mallampati Class: 2 Mouth Opening: Normal (> 3cm) Thyromental Distance: Less than 3 cm Neck Range of Motion: Full ROM Neck Circumference: Normal Teeth Condition: Normal Dentition and Loose or Chipped (Broken tooth top right#15) Airway Comments: Top left crown ASA Classification ASA Score: ASA 2 Emergency Case?: No NPO Status NPO Status: NPO Clears >2 hours, Solids >8 hours Anesthesia Plan Resuscitation Status: Full Code Anesthesia Technique: General Anesthesia Airway Planned: LMA Monitors Used: Standard Monitors
[2024-07-06] MEDS: Lactated Ringers 1,000 ML 80 ML IV (12:00)
[2024-07-06] MEDS: ceFAZolin 2 GM/50 ML BAG IVPB (12:15)
[2024-07-06] MEDS: TRANEXAMIC ACID/SOD. CHL. 1,000 MG/100 ML BAG 600 MG IVPB (12:21)
[2024-07-06] MEDS: methylPREDNISolone ACETATE 80 MG/ML VIAL (12:23)
[2024-07-06] MEDS: Bupivacaine 0.25% Pres-Free 30 ML VIAL (12:44)
[2024-07-06] MEDS: EPINEPHrine 10 MG/10 ML ML (12:44)
--- NOTE | 2024-07-06 13:07 | PDOC.DSDIS_ITS ---
Date of service: 07/06/24 Discharge Plan Disposition Patient Disposition: Home Condition: Good Discharge Details Reason For Visit: L Knee arthroscopy Attending Provider: Anjel Adrian Primary Care Provider: Wendy Cook Home Meds and New Rx's Prescriptions: New hydrocodone-acetaminophen 5-325 mg tablet 1 tab PO Q6H PRN (Reason: pain) Qty: 6 0RF acetaminophen 500 mg tablet 1,000 mg PO TID Qty: 90 0RF ibuprofen 600 mg tablet 600 mg PO TID PRN (Reason: pain) Qty: 90 0RF Continued aspirin 81 mg tablet,delayed release (DR/EC) 81 mg PO DAILY lidocaine [Lidoderm] 5 % adhesive patch,medicated 1 patch topical DAILY PRN Rx Instructions: leave on most painful area for up to 12 hrs multivitamin [Daily Multi-Vitamin] 1 EACH tablet 1 ea PO HS FISH OIL 1 tab PO HS omeprazole 20 MG capsule,delayed release(DR/EC) 20 mg PO HS diclofenac sodium 1 % gel 2 g topical QID Qty: 100 0RF Rx Instructions: apply to single elbow, knee, wrist or hand; for hand includes palm/fin gers/back of hand Discontinued acetaminophen [Acetaminophen Extra Strength] 500 mg tablet 500 mg PO ONCE Patient Comments: pt. reports dose 1000 mg Discharge Instructions Stand Alone Forms: Anesthesia Discharge Inst., Jovanni Muniz (DSU), Kaylah Knee Arthroscopy Referrals: Anjel Adrian MD [ [facility] STAFF PHYSICIAN] - 07/18/24 1:00 pm (with PA) Equipment/Supplies: Partial Weight Bearing Crutches Activity:: Activity as Tolerated Remove Dressings/Wound Care:: 72 hours Shower/Bathe:: 72 hours Diet:: As Tolerated Discharge Orders Discharge Orders: Discharge Order (Routine); Ordered 07/06/24 Ordered By: Bret Carmona DS: Diagnosis Discharge Diagnosis (1) Acute lateral meniscus tear of left knee: Status: Acute
[2024-07-06] MEDS: fentaNYL 100 MCG/2 ML VIAL IVP (13:43)
--- NOTE | 2024-07-06 14:06 | ROE_ITS ---
Operative Note Operative Note PRE-OP DIAGNOSIS: Left Knee Lateral Meniscus Tear Right Trochanteric Bursitis POST-OP DIAGNOSIS: other (Left Knee Medial Meniscus Cartilage Flap, Lateral Meniscus Tear) PROCEDURE: Arthroscopic medial chondroplasty and partial lateral meniscectomy, left knee Right trochanteric bursal injection SURGEON: Anjel Adrian ANESTHESIA TYPE: General LMA/ETT Refer to Anesthesia Record ESTIMATED BLOOD LOSS: 0 PATHOLOGY: none sent COMPLICATIONS: None Patient was transported to: PACU Patient's condition: stable Indications: I have seen Anette in clinic for symptoms of a meniscus tear. This was confirmed based on MRI and exam findings. Nonoperative measures were exhausted but disability and pain persisted. I discussed knee arthroscopy with meniscal intervention with the patient. I reviewed the risks of the procedure to include, but not limited to, bleeding, infection, pain, stiffness, damage to nerves or vessels, recurrence, blood clot. Despite these risks, the patient elected to proceed. Findings: A diagnostic arthroscopy was performed with the following findings: Suprapatellar Pouch: No significant inflammation, No loose bodies Medial Compartment: NO medial meniscus tear, Intact meniscal root, grade II chondromalacia over the weightbearing portion of the femur with a small loose cartilage flap, approximately 3 mm in size, No loose bodies Notch: ACL and PCL were intact Lateral Compartment: Complex tear of the lateral meniscus extending from the anterior body through the mid body, Intact meniscal root, grade II chondrom alacia of the tibia and the femur, No loose bodies Patellofemoral Compartment: No significant chondromalacia, mild chondromalacia of the central portion of the trochlea, no apparent patellar maltracking Procedure Description: Anette was greeted in the preoperative holding area where the correct side was identified and marked. The consent was reviewed with the patient and signed. The history and physical was updated. All questions were answered. She was taken back to the operating room. The patient was placed into the supine position on the operating room table. All bony prominences were well padded. Prophylactic antibiotics in the form of Cefazolin were administered. A timeout to confirm correct identity, side and site, procedure, allergies, anesthesia, and medical concerns was performed. The bursal injection was performed first. The patient was brought into a lazy lateral position exposing the prominence of the greater trochanter. This was marked on the skin as a point of prominence of the superior, posterior aspect of the greater trochanter. The area was prepped ChloraPrep. I then used a spinal needle to inject 8 cc of 0.25% bupivacaine and 80 mg of Depo-Medrol. Hemostasis was obtained and a Band- Aid was applied. Attention was then turned to the left knee. The left leg was then prepped with Chloraprep and draped in a standard fashion with stockinette and extremity drape. The leg was placed into a pneumatic leg macias, SPIDER2. A standard lateral portal was made at the lateral border of the patella tendon in line with the inferior pole of the patella, soft spot. The skin and deep tissue was incised sharply and the blunt trochar was inserted atraumatically. A diagnostic arthroscopy was performed and the findings are listed above. The suprapatellar pouch had no significant inflammatory change. The patellofemoral articulation showed minimal chondromalacia within the central portion of the trochlea as well as good tracking. The lateral gutter had no loose bodies and the medial gutter had no loose bodies. The knee was brought into some valgus stress in extension to open the medial compartment. A medial portal was made, localized by a spinal needle. The portal was created with an #11 blade through skin and capsule under direct visualization avoiding any meniscal injury. A probe was then inserted into the medial compartment. The medial compartment was fully inspected. The chondral surface of the tibia showed no significant chondromalacia and the surface of the femur showed grade II chondromalacia with a small, 5 mm x 3 mm flap. The medial meniscus had no meniscal tear. Cartilage surface was debrided of the flap, leaving any intact fibers not displaceable into the joint. The notch was then inspected which showed an intact ACL and an intact PCL. The leg was then brought into a figure of 4 position. The lateral compartment was fully inspected with the arthroscope and a probe. The chondral surface of the lateral femur showed grade II chondromalacia. The chondral surface of the lateral tibia showed grade II chondromalacia. The lateral meniscus had complex tearing from the anterior body all the way through the posterior horn. There was complex tearing throughout and some amorphous changes about the lateral meniscus.. After evaluation, the meniscus was debrided down to a stable base using a series of biters and arthroscopic bárbara. It was probed afterwards to confirm that the tear had been removed and the meniscus was stable. The arthroscope was brought back into the suprapatellar pouch and the leg was in full extension. The knee was thoroughly irrigated with the arthroscopic fluid on high flow and pressure. Inflow was stopped and excess fluid was removed. The wounds were closed with 4-0 Nylon. They were dressed with Xeroform, 4x4 gauze, ABD pad, Kerlix and an GISELE wrap. A cryo-cuff was applied. The patient tolerated the procedure well and was returned to the Same Day Surgery area in a stable condition suffering no known complication. Date of Procedure: 07/06/24
--- NOTE | 2024-07-06 14:19 | W.ANESPOSTOP ---
Postoperative Evaluation Date, Time and Location Date Performed: 07/06/24 Time Performed: 14:19 Patient Location: Day Surgery Unit Vital Signs Most Recent Imported Vital Signs: Most Recent Vital Signs Temp Pulse Resp BP Pulse Ox 37.0 C 51 L 13 177/74 H 99 07/06/24 13:50 07/06/24 13:51 07/06/24 13:51 07/06/24 13:51 07/06/24 13:51 Pain Score Most Recent Pain Score: Most Recent Pain Score Pain Level 5 07/06/24 13:50 Assessment Mental Status: Awake (Alert & Oriented to Patient Baseline) Airway and Respiratory Function: Patent airway with normal (patient baseline) respiratory exam Cardiovascular Function: Hemodynamically Stable Hydration Status: Adequately Hydrated Nausea & Vomiting: No Nausea or Vomiting Pain: Pain is tolerable per patient Peripheral Nerve Block: Patient did not receive a nerve block
== END 2024-07-06 15:30 | disposition home or self-care (01) ==
PROVIDERS: PCP Nurse Practitioner Family; Visit Provider Student in an Organized Health Care Education/Training Program
PROC: (CPT 29870; principal; 2024-07-06 12:45)
PROC: (CPT 20610; 2024-07-06 12:45)
DX: S83.282A Other tear of lateral meniscus, current injury, left knee, initial encounter (principal); M70.61 Trochanteric bursitis, right hip; K21.9 Gastro-esophageal reflux disease without esophagitis; E78.5 Hyperlipidemia, unspecified; W19.XXXA Unspecified fall, initial encounter
CPT/HCPCS: 20610; 29881; G0289; J0665; J0690; J1010; J1100; J1885; J2003; J2405; J2704; J3010

== ENCOUNTER → 2024-07-21 10:30 | Outpatient (BNVA) | payer MEDICARE, SELFPAY | PROVIDERS: PCP Nurse Practitioner Family; Referring Provider Nurse Practitioner Family | DX: Z47.89 Encounter for other orthopedic aftercare (principal); M70.61 Trochanteric bursitis, right hip; R60.0 Localized edema | CPT/HCPCS: 99024 ==

== ENCOUNTER → 2024-08-22 11:06 | Outpatient (BNVA) | payer MEDICARE, SELFPAY | PROVIDERS: PCP Family Medicine; Visit Provider Student in an Organized Health Care Education/Training Program | DX: Z47.89 Encounter for other orthopedic aftercare (principal); S83.282D Other tear of lateral meniscus, current injury, left knee, subsequent encounter; X58.XXXD Exposure to other specified factors, subsequent encounter | CPT/HCPCS: 20610; J1010 ==

== ENCOUNTER → 2024-09-19 09:57 | Outpatient (BNVA) | payer MEDICARE, SELFPAY | PROVIDERS: PCP Family Medicine; Referring Provider Family Medicine; Visit Provider Student in an Organized Health Care Education/Training Program | DX: S83.282D Other tear of lateral meniscus, current injury, left knee, subsequent encounter (principal); M17.12 Unilateral primary osteoarthritis, left knee; X58.XXXD Exposure to other specified factors, subsequent encounter | CPT/HCPCS: 99024 ==

== ENCOUNTER → 2024-12-15 08:57 | Outpatient (BNVA) | payer MEDICARE, SELFPAY | PROVIDERS: PCP Nurse Practitioner Family; Referring Provider Nurse Practitioner Family; Visit Provider Surgery | DX: K27.9 Peptic ulcer, site unspecified, unspecified as acute or chronic, without hemorrhage or perforation (principal) | CPT/HCPCS: 99213 ==

== ENCOUNTER → 2025-01-09 13:30 | Outpatient (BNVA) | payer MEDICARE, SELFPAY | PROVIDERS: PCP Nurse Practitioner Family; Referring Provider Nurse Practitioner Family; Visit Provider Student in an Organized Health Care Education/Training Program | DX: M17.12 Unilateral primary osteoarthritis, left knee (principal) | CPT/HCPCS: 99214 ==

== ENCOUNTER 2025-02-19 09:18 | Emergency (ER) | payer MEDICARE, SELFPAY ==
[2025-02-19 09:23] VITALS: BP 156/73; PULSE 65; RESP 18; TEMP 36.7; O2SAT 98
[2025-02-19] MEDS: Acetaminophen 325 MG TAB 650 MG PO (09:38)
--- NOTE | 2025-02-19 10:15 | DI.RAD_ITS ---
Exam(s) XR ANKLE LT COMPLETE EXAM: XR ANKLE LT COMPLETE CLINICAL HISTORY: lateral malleolus tenderness/swelling TECHNIQUE: 2D digital imaging was performed of the left ankle. Three images were obtained. AP, lateral and oblique views were obtained. COMPARISON: CR XR ANKLE LT COMPLETE from 03/01/2018 FINDINGS: BONES: No acute fracture is present. No bony destructive lesion is seen. There is a plantar calcaneal spur. There is an enthesophyte at the posterior calcaneus. JOINTS:The ankle mortise is normally aligned. SOFT TISSUE: Normal. IMPRESSION: There is no acute fracture or dislocation present. DATA REPOSITORY: RADIATION DOSE DELIVERED:
--- NOTE | 2025-02-19 11:22 | W.ED.GENAD ---
Discharge Plan Disposition Patient Disposition: Home Discharge Details Clinical Impression: Injury of left ankle Primary Care Provider: Wendy Cook ED Provider: Young Ba Home Meds and New Rx's Prescriptions: No Action aspirin 81 mg tablet,delayed release (DR/EC) 81 mg PO DAILY multivitamin [Daily Multi-Vitamin] 1 EACH tablet 1 ea PO HS FISH OIL 1 tab PO HS omeprazole 20 MG capsule,delayed release(DR/EC) 20 mg PO HS diclofenac sodium 1 % gel 2 g topical QID Qty: 100 0RF Rx Instructions: apply to single elbow, knee, wrist or hand; for hand includes palm/fingers/back of hand acetaminophen 500 mg tablet 1,000 mg PO TID Qty: 90 0RF ibuprofen 600 mg tablet 600 mg PO TID PRN (Reason: pain) Qty: 90 0RF Discharge Instructions Instructions: Walking Boot Additional Instructions: Please follow-up with your primary care provider regarding your visit to the emergency department today. Be sure to discuss results of all test performed here today to include radiology, and laboratory testing as well as results for any pending cultures. Should your symptoms worsen, or if you develop new concerning symptoms, please return immediately emergency department for further evaluation. Stand Alone Forms: Portal Information HPI General Date/Time Provider Initiated Documentation: 02/19/25 09:18. HPI Narrative: MDM/Narrative: 69-year-old female presents for evaluation of left ankle pain status post being struck by a piece of wood 5 days ago. Notes significant swelling and bruising of the ankle and difficulty walking due to pain. Examination concerning given left medial l malleolus tenderness. Will obtain screening x-ray to rule fracture dislocation. ED course: X-ray negative for acute fracture or dislocation. Will provide ankle splint, instructions to RICE for likely contusion versus sprain. Clinical impression: Ankle injury Disposition: Home HPI: 69-year-old female presents for evaluation of left ankle pain x 5 days after being struck by a piece of blood while moving a tractor of her . Notes she is able to ambulate however is significant painful and notes significant swelling bruising over the medial aspect. No other injuries. ROS: Negative besides as mentioned above Exam: Gen: A&O NAD HEENT: NCAT, EOMI, not icteric. External ears normal. No rhinorrhea. Moist mucous membranes. Neck: Supple, full range of motion, no observable masses, No meningeal sign. Lungs: No Respiratory distress. CV: RRR, no edema. Abdomen: Soft, nondistended, No rebound tenderness. MSK: Mild swelling, ecchymosis and tenderness of the medial aspect of the left ankle, DP pulse there is Skin: No rashes, petechiae, lesions. Normal color per patient. Neuro: Normal Gait, Grossly intact. Psych: Appropriate for situation. Radiology: X-ray of the left ankle: No acute fracture or dislocation as read by me Related Data Home Medications Medication Instructions Recorded Confirmed omeprazole 20 mg capsule,delayed 20 mg PO HS 08/19/12 02/19/25 release Fish Oil 1 tab PO HS 05/18/14 02/19/25 multivitamin (Daily Multi-Vitamin 1 ea PO HS 05/18/14 02/19/25 tablet) aspirin 81 mg tablet,delayed 81 mg PO DAILY 03/31/22 02/19/25 release diclofenac sodium 1 % topical gel 2 g topical QID #100 grams 05/01/24 02/19/25 acetaminophen 500 mg tablet 1,000 mg (2 x 500 mg) PO TID #90 07/06/24 02/19/25 tabs ibuprofen 600 mg tablet 600 mg PO TID PRN pain #90 tabs 07/06/24 02/19/25 Previous Rx's Medication Instructions Recorded diclofenac sodium 1 % topical gel 2 g topical QID #100 grams 05/01/24 acetaminophen 500 mg tablet 1,000 mg (2 x 500 mg) PO TID #90 07/06/24 tabs ibuprofen 600 mg tablet 600 mg PO TID PRN pain #90 tabs 07/06/24 Allergies Allergy/AdvReac Type Severity Reaction Status Date / Time oxycodone (From Percocet) Allergy Intermediate Nausea Verified 02/19/25 09:25 tramadol AdvReac Severe Nausea Verified 02/19/25 09:25 cyclobenzaprine AdvReac Intermediate excessive Verified 02/19/25 09:25 sedatio General Stated Complaint: Orthopedic KIET: 4 Course Vital Signs Vital signs: Vital Signs Temperature 36.7 C 02/19/25 09:23 Pulse 65 02/19/25 09:23 Respiratory Rate 18 02/19/25 09:23 Blood Pressure 156/73 H 02/19/25 09:23 Pulse Oximetry 98 02/19/25 09:23 Temperature 36.7 C 02/19/25 09:23 Pulse 65 02/19/25 09:23 Respiratory Rate 18 02/19/25 09:23 Blood Pressure 156/73 H 02/19/25 09:23 Pulse Oximetry 98 02/19/25 09:23 PFSH All Active Problems (Updated 02/19/25 @ 11:26 by Young Ba MD) Injury of left ankle (Acute) Gastritis (Acute) Localized osteoarthritis of left knee (Acute) Acute lateral meniscus tear of left knee (Acute) Steroid injection: 08/22/2024 S/P arthroscopy with partial lateral meniscectomy: 07/06/2024 Trochanteric bursitis, right hip (Acute) Iliopsoas bursitis of right hip (Acute) Pain in hip region after total hip replacement (Acute) Arthritis of carpometacarpal (CMC) joint of left thumb (Acute) Arthritis of carpometacarpal (CMC) joint of right thumb (Acute) SI joint arthritis (Acute) Abdominal pain, RUQ (Acute) Tinnitus (Acute 06/27/13) Sensory hearing loss, bilateral (Acute 06/27/13) Injury of head (Acute 06/27/13) Disequilibrium syndrome (Acute 06/27/13) Umbilical hernia (Acute) S/P ventral herniorrhaphy (Acute ~06/02/18) umbilical hernia repair Nailbed laceration, finger (Acute) S/P repair: 04/03/2020 Open fracture of phalanx of left middle finger (Acute) Screening for colon cancer (Acute) Family history of colon cancer (Acute) Stress at home (Acute) Rib pain on left side (Acute) Anxiety (Chronic) Lumbago (Acute) Chronic pain (Chronic) Anemia (Chronic) Family history of breast cancer (Acute) Depression (Chronic) Reflux esophagitis (Acute) Hyperlipidemia (Acute) Osteoarthritis of right hip (Acute) Medical History Traumatic arthritis of right hip GERD (gastroesophageal reflux disease) Surgical History History of total right hip replacement (03/12/21) Hx of shoulder surgery RTCR 08/2016 Ligation of fallopian tube Endometrial Ablation EGD - MAC (~2014) Dilation and curettage Colonoscopy - MAC (~2014) Cholecystectomy Family History Other Personal history of malignant neoplasm Social History Smoking/Tobacco Use Status: Never Smoking risk assessment performed?: Yes Alcohol Intake: never Drug use: Never Substance use type: does not use Housing: house Current gender identity: female Do you feel safe at home: Yes Do you feel safe in your relationship?: Yes Additional Social history: [employer]
== END 2025-02-19 11:42 | disposition home or self-care (01) ==
PROVIDERS: Emergency Provider General Practice; PCP Nurse Practitioner Family
DX: S99.812A Other specified injuries of left ankle, initial encounter (principal); W22.8XXA Striking against or struck by other objects, initial encounter
CPT/HCPCS: 99283 ×2; 73610

== ENCOUNTER 2025-03-03 10:48 | Day surgery (SDC) | payer MEDICARE, SELFPAY ==
--- NOTE | 2025-03-02 15:46 | HPE_ITS ---
Assessment and Plan Assessment and plan (1) Gastritis: Status: Acute Assessment and plan: We reviewed the plan for EGD today, and he had the chance to ask any other questions. We can proceed with the EGD as scheduled History of Present Illness History of Present Illness Chief Complaint: Gastritis Narrative: Anette is 69 years old, and she has had symptoms of gastroesophageal reflux disease dating back to a little bit before 2014. At that time, she underwent an EGD that confirmed the presence of gastritis. She was started on omeprazole. She had some improvement of her symptoms. She certainly notice, however, if she misses doses of her omeprazole with mostly sour brash reflux and retrosternal discomfort. She is also been able to identify specific trigger foods, and she does pretty well if she is able to avoid those. More recently, however, her dyspepsia has increased a bit in frequency and intensity. Although this might be associated with some stressors (her 's cancer diagnosis). Relevant surgical history includes open cholecystectomy. PFSH All Active Problems Injury of left ankle (Acute) Gastritis (Acute) Localized osteoarthritis of left knee (Acute) Acute lateral meniscus tear of left knee (Acute) Steroid injection: 08/22/2024 S/P arthroscopy with partial lateral meniscectomy: 07/06/2024 Trochanteric bursitis, right hip (Acute) Iliopsoas bursitis of right hip (Acute) Pain in hip region after total hip replacement (Acute) Arthritis of carpometacarpal (CMC) joint of left thumb (Acute) Arthritis of carpometacarpal (CMC) joint of right thumb (Acute) SI joint arthritis (Acute) Abdominal pain, RUQ (Acute) Tinnitus (Acute 06/27/13) Sensory hearing loss, bilateral (Acute 06/27/13) Injury of head (Acute 06/27/13) Disequilibrium syndrome (Acute 06/27/13) Umbilical hernia (Acute) S/P ventral herniorrhaphy (Acute ~06/02/18) umbilical hernia repair Nailbed laceration, finger (Acute) S/P repair: 04/03/2020 Open fracture of phalanx of left middle finger (Acute) Screening for colon cancer (Acute) Family history of colon cancer (Acute) Stress at home (Acute) Rib pain on left side (Acute) Anxiety (Chronic) Lumbago (Acute) Chronic pain (Chronic) Anemia (Chronic) Family history of breast cancer (Acute) Depression (Chronic) Reflux esophagitis (Acute) Hyperlipidemia (Acute) Osteoarthritis of right hip (Acute) Medical History Traumatic arthritis of right hip GERD (gastroesophageal reflux disease) Surgical History History of total right hip replacement (03/12/21) Hx of shoulder surgery RTCR 08/2016 Ligation of fallopian tube Endometrial Ablation EGD - MAC (~2014) Dilation and curettage Colonoscopy - MAC (~2014) Cholecystectomy Family History Other Personal history of malignant neoplasm Social History Smoking/Tobacco Use Status: Never Smoking risk assessment performed?: Yes Alcohol Intake: never Drug use: Never Substance use type: does not use Housing: house Current gender identity: female Do you feel safe at home: Yes Do you feel safe in your relationship?: Yes Additional Social history: [facility] [[email or web address]P Meds Allergies and Home Medications Allergies Allergy/AdvReac Type Severity Reaction Status Date / Time oxycodone (From Percocet) Allergy Intermediate Nausea Verified 03/03/25 11:12 tramadol AdvReac Severe Nausea Verified 03/03/25 11:12 cyclobenzaprine AdvReac Intermediate excessive Verified 03/03/25 11:12 sedatio Home Medications Medication Instructions Recorded Confirmed Type omeprazole 20 mg capsule,delayed 20 mg PO HS 08/19/12 03/03/25 History release Fish Oil 1 tab PO HS 05/18/14 5 History multivitamin (Daily Multi-Vitamin 1 ea PO HS 05/18/14 03/03/25 History tablet) aspirin 81 mg tablet,delayed 81 mg PO DAILY 03/31/22 1 05/03/24 History release diclofenac sodium 1 % topical gel 2 g topical QID #100 grams 05/01/24 03/03/25 Rx acetaminophen 500 mg tablet 1,000 mg (2 x 500 mg) PO T ID #90 03/26/25 11/21/25 Rx tabs ibuprofen 600 mg tablet 600 mg PO TID PRN pain #90 t abs 07/06/24 03/03/25 Rx Exam Const General: cooperative, healthy appearing and not in acute distress Neck Neck: normal visual inspection, no lymphadenopathy and supple Resp Effort & Inspection: normal respiratory effort Auscultation: clear to auscultation bilaterally Cardio Jugular venous pressure: no JVD Rate: regular rate Rhythm: regular rhythm Heart Sounds: S1 normal and S2 normal GI Inspection: normal to inspection Palpation: soft, no guarding, no hernias and nontender Percussion: normal to percussion Auscultation: normal bowel sounds Neuro General: patient alert, patient awake and patient oriented x3 Psych Appearance: grossly normal
[2025-03-03 11:08] VITALS: BP 128/70; PULSE 61; RESP 16; TEMP 36.5; O2SAT 98
[2025-03-03] MEDS: Lactated Ringers 1,000 ML 80 ML IV (11:30)
--- NOTE | 2025-03-03 11:50 | W.PM.DSUDISC ---
Date of service: 03/03/25 Discharge Plan Disposition Patient Disposition: Home Condition: Good Discharge Details Reason For Visit: EGD Attending Provider: Robles Rios Primary Care Provider: Wendy Cook Home Meds and New Rx's Prescriptions: Continued aspirin 81 mg tablet,delayed release (DR/EC) 81 mg PO DAILY multivitamin [Daily Multi-Vitamin] 1 EACH tablet 1 ea PO HS FISH OIL 1 tab PO HS omeprazole 20 MG capsule,delayed release(DR/EC) 20 mg PO HS diclofenac sodium 1 % gel 2 g topical QID Qty: 100 0RF Rx Instructions: apply to single elbow, knee, wrist or hand; for hand includes palm/fingers/back of hand acetaminophen 500 mg tablet 1,000 mg PO TID Qty: 90 0RF ibuprofen 600 mg tablet 600 mg PO TID PRN (Reason: pain) Qty: 90 0RF Discharge Instructions Additional Instructions: Anette was good seeing you today, and I hope you feel well after the procedure. Things went very smoothly. Generally, things look reassuring. You do have a little bit of inflammation in your stomach that would be consistent with gastritis, fitting with your symptoms. Generally, proton pump inhibitor such as your omeprazole are the mainstay of therapy for this. I did do some biopsies of your stomach to make sure there is no Helicobacter pylori, which is a bacteria that occurs in some patients stomachs causing inflammation. If we find that, that can be treated with antibiotics. I also did some biopsies of your GE junction to assess for Cole's esophagus, which is extremely common in patients with longstanding gastroesophageal reflux. Finally, I did some random biopsies of your esophagus to make sure there is no evidence of esophagitis. All these results will take about a week or 2 to get back, once my office has that information we will be in touch with any other recommendations. If you need anything in the meantime, please do not hesitate to ask 1. If tolerated, consume a soft, low fiber diet for 1-2 days. [address] Do not drive, drink alcohol, operate machinery, make critical decisions, or do activities that require coordination or balance for 24 hours. 3. You may experience a sore throat for 24 to 48 hours. You may use throat lozenges or gargle with warm salt water to relieve the discomfort. 4. Because air was put into your stomach during the procedure, you may experience some belching. 5. Go directly to the emergency room if you notice any of the following: Develop chills (warm to touch), or if you have a thermometer and your temperature is above 101 Difficulty breathing or difficultly swallowing Persistent vomiting Severe abdominal pain, other than gas cramps Severe chest pain Black, tarry stools Any bleeding – exceeding one tablespoon 6. Call your physician if the site where your intravenous was started becomes red, swollen, painful, and warm to touch. 7. Your physician has reviewed your pre-procedure medications. Please continue to take those medications as previously ordered. You will be given specific information/education regarding any changes to your medications before leaving. Stand Alone Forms: Anesthesia Discharge Inst., Jovanni Muniz (DSU), Portal Information Activity:: Activity as Tolerated Diet:: As Tolerated DS: Diagnosis Discharge Diagnosis (1) Gastritis: Status: Acute Asessment and Plan: Follow-up on biopsy results
--- NOTE | 2025-03-03 11:51 | W.PM.ENDDOP ---
Date of service: 03/03/25 Time of Service: 13:45 Endoscopy Report DATE OF PROCEDURE: 03/03/25 PRE-OP DIAGNOSIS: GERD with dysphagia POST-OP DIAGNOSIS: other (Gastritis) PROCEDURE: EGD with biopsies SURGEON: Robles Rios ANESTHESIA TYPE: General:No Airway ESTIMATED BLOOD LOSS: 10 PATHOLOGY: other (Nondirected biopsies of gastric antrum and body to rule out Helicobacter pylori; four-quadrant biopsies of GE junction, nondirected esophageal biopsies to rule out esophagitis) COMPLICATIONS: None DISPOSITION: same day INDICATIONS: Anette is a 69-year-old woman with longstanding dyspepsia, and a history of gastritis. She has had recrudescence of her symptoms despite PPI therapy. PROCEDURE START TIME: 13:31 PROCEDURE END TIME: 13:40 FINDINGS: Mild irregularity of the GE junction measuring 38 cm from the incisors. Mild gastritis PROCEDURE DESCRIPTION: After the initiation of anesthesia, and with the assistance of a bite block, I advanced a standard gastroscope through the mouth past the hypopharynx and into the esophagus. Under the direct vision of the scope, I advanced down the esophagus towards the stomach. The upper, mid, and lower esophagus were normal in course and caliber. The GE junction is measured at 38 cm past the incisors. There is very mild irregularity of the Z-line, and narrowband imaging does suggest some early changes associated with Cole's esophagus. I am able to traverse the GE junction with ease and insufflate the stomach until the rugae are completely obliterated. There are some punctate areas of gastritis mostly in the upper portion of the gastric body. The incisura angularis, and the antrum all appear normal and healthy. The duodenum is normal through the third portion. I then brought the camera back up into the stomach and performed some nondirected cold forceps biopsies to rule out Helicobacter pylori as a source of the gastritis. Next I brought the camera up to the GE junction and perform four-quadrant biopsies to assess for Cole's. Certainly, this is well less than 1 cm of irregularity, and I would consider this very short segment Cole's esophagus if that is the case. There was minimal bleeding from any of these biopsy sites. I then brought the camera up along the length of the esophagus 1 last time. No abnormalities were appreciated here, but given her symptoms, I did perform some cold forceps biopsies to rule out eosinophilic esophagitis. Again, there was no worrisome bleeding. The camera then advanced down into the stomach and it was emptied completely before removal.
--- NOTE | 2025-03-03 13:22 | ANES.PREOP_ITS ---
General Info Date of Service Date Performed: 03/03/25 Height: 5 ft 7 in Weight: 73.8 kg Body Mass Index (BMI): 25.4 Surgical Procedure: Operation Date: 03/03/25 13:35 Proposed Procedure Side Surgeon p Gastroscopy Robles Rios MD Actual Procedure Side Surgeon p Gastroscopy Not Applicable Robles Rios MD Pre-Op Diagnosis Post-Op Diagnosis EGD Meds Allergies and Home Medications Allergies Allergy/AdvReac Type Severity Reaction Status Date / Time oxycodone (From Percocet) Allergy Intermediate Nausea Verified 03/03/25 11:12 tramadol AdvReac Severe Nausea Verified 03/03/25 11:12 cyclobenzaprine AdvReac Intermediate excessive Verified 03/03/25 11:12 sedatio Home Medication Medication Instructions Recorded omeprazole 20 mg capsule,delayed 20 mg PO HS 08/19/12 release Fish Oil 1 tab PO HS 05/18/14 multivitamin (Daily Multi-Vitamin 1 ea PO HS 05/18/14 tablet) aspirin 81 mg tablet,delayed 81 mg PO DAILY 03/31/22 release diclofenac sodium 1 % topical gel 2 g topical QID #100 grams 05/01/24 acetaminophen 500 mg tablet 1,000 mg (2 x 500 mg) PO T ID #90 07/06/24 tabs ibuprofen 600 mg tablet 600 mg PO TID PRN pain #90 t abs 07/06/24 Current Visit Medications: Current Medications Generic Name Dose Route Start Last Admin Trade Name Freq PRN Reason Stop Dose Admin Ringer's Solution 1,000 mls @ 80 mls/hr 03/03/25 06:00 03/03/25 11:30 IV 03/03/25 23:59 80 mls/hr INFUSION ELHAM Administration IV Miscellaneous Supplies 1 each 03/03/25 06:00 Iv Access IV 03/03/25 23:59 DIRECTED ELHAM Sodium Chloride 0 ml 03/03/25 06:00 Normal Saline Flush 10 Ml Syr IV 03/03/25 23:59 PRN PRN Sodium Chloride 0 ml 03/03/25 06:00 Normal Saline 10 Ml Vial IJ 03/03/25 23:59 DIRECTED PRN Sterile Water 0 ml 03/03/25 06:00 Water,Injection,Sterile 10 Ml Vial IJ 03/03/25 23:59 DIRECTED PRN PFSH Active Problems Active Problems: Problem Status Onset Code Injury of left ankle Acute S99.912A Gastritis Acute K29.70 Localized osteoarthritis of left knee Acute M17.12 Acute lateral meniscus tear of left knee Acute S83.282A Trochanteric bursitis, right hip Acute M70.61 Iliopsoas bursitis of right hip Acute M70.71 Pain in hip region after total hip replacement Acute T84.84XA, Z96.649 Arthritis of carpometacarpal (CMC) joint of left thumb Acute M18.12 Arthritis of carpometacarpal (CMC) joint of right thumb Acute M18.11 SI joint arthritis Acute M47.818 Abdominal pain, RUQ Acute R10.11 Tinnitus Acute 06/27/13 H93.19 Sensory hearing loss, bilateral Acute 06/27/13 H90.3 Injury of head Acute 06/27/13 S09.90XA Disequilibrium syndrome Acute 06/27/13 E87.8 Umbilical hernia Acute K42.9 S/P ventral herniorrhaphy Acute ~06/02/18 Z98.890, Z87.19 Umbilical hernia without obstruction and without gangrene Resolved K42.9 Nailbed laceration, finger Acute Open fracture of phalanx of left middle finger Acute S62.603B Screening for colon cancer Acute Z12.11 Family history of colon cancer Acute Z80.0 Stress at home Acute F43.9 Rib pain on left side Acute R07.81 Anxiety Chronic F41.9 Lumbago Acute M54.5 Chronic pain Chronic G89.29 Anemia Chronic D64.9 Family history of breast cancer Acute Z80.3 Depression Chronic F32.9 Reflux esophagitis Acute K21.00 Hyperlipidemia Acute E78.5 Osteoarthritis of right hip Acute M16.11 Medical History Medical History Traumatic arthritis of right hip GERD (gastroesophageal reflux disease) Surgical History Surgical History History of total right hip replacement (03/12/21) Hx of shoulder surgery RTCR 08/2016 Ligation of fallopian tube Endometrial Ablation EGD - MAC (~2014) Dilation and curettage Colonoscopy - MAC (~2014) Cholecystectomy Tobacco Smoking/Tobacco Use Status: Never Passive smoking exposure: Yes Alcohol Alcohol Intake: never Substance Use Substance use: Never Substance use type: does not use Vital Signs and Lab Results Vital Signs Most Recent Vital Signs in EMR: Most Recent Vital Signs Temp Pulse Resp BP Pulse Ox 36.5 C 61 16 128/70 98 03/03/25 11:08 03/03/25 11:08 03/03/25 11:08 03/03/25 11:08 03/03/25 11:08 Imaging and Studies Imaging and Studies Study information below may be from another EMR and interpreted by another provider. Please see original notes in EMR for more complete details. EKG Summary: 06/04/20 Conclusion Sinus rhythm...normal P axis, V-rate 60- 99 Atrial premature complex...SV complex w/ short R-R interval I have reviewed and interpreted ECG and agree with software generated interpretation. Stress Test Summary: 06/07/20 Stress ECG Conclusion 1. The resting electrocardiogram was within normal limits. The patient exercised on the Gunner protocol and completed a workload of 10.31 METS, stopping due to fatigue 2. Normal heart rate and blood pressure response to exercise. The patient achieved 100% of predicted heart rate for age 3. At peak exercise there was J-point depression and upsloping ST segments notably in the anterolateral leads. These did not meet criteria for myocardial ischemia 4. Occasional ventricular ectopic beats were noted Schaefer Treadmill Score is 8.2 which is Low risk. Anesthesia Assessment and Plan Anesthesia History Personal History: No History of Anesthesia Complications Family History: No Family History of Anesthesia Complications Exercise Tolerance Exercise Tolerance: Metabolic Equivalents>4 Pertinent Negatives Pertinent Negatives: No Symptoms of GERD Cardiac & Pulmonary Exam Cardiac Exam: Normal S1/S2 Heart Sounds Pulmonary Exam: Clear Bilateral Breath Sounds Implantable Cardiac Device Does patient have a Pacemaker or an ICD?: No Airway Exam Known Difficult Airway: No Mallampati Class: 2 Mouth Opening: Normal (> 3cm) Thyromental Distance: Less than 3 cm Neck Range of Motion: Full ROM Neck Circumference: Normal Teeth Condition: Normal Dentition and Loose or Chipped (Broken tooth top right#15) Airway Comments: Top left crown ASA Classification ASA Score: ASA 2 Emergency Case?: No NPO Status NPO Status: NPO Clears >2 hours, Solids >8 hours Anesthesia Plan Resuscitation Status: Full Code Anesthesia Technique: General Anesthesia Airway Planned: Natural Airway Monitors Used: Standard Monitors
[2025-03-03 13:23] VITALS: BMI 25.4
--- NOTE | 2025-03-03 13:33 | STOM_PTH ---
PATIENT: Anette Rivers LOC: PREM U#:[id number] AGE/SX: 69/F ROOM: RE03/03/[address]: Robles Rios MD : 1955 BED: DIS: 03/03/2025 SPEC #: [id number] RECD: 03/03/25 18:09 STATUS: [facility] #: [id number] ADILENE: 03/03/25 13:[address]: Robles Rios DEPT: Surgical Specimen RECD BY: Radha Riggins ENTERED: 03/03/25 18:11 SP TYPE: STOMACH OTHR DR: Wendy Cook Tissues: 1 - STOMACH BIOPSY 2 - STOMACH BIOPSY 3 - ESOPHAGUS BIOPSY 4 - ESOPHAGUS BIOPSY Procedures: GROSS AND MICRO LEVEL 4 Comments: [id number]
[2025-03-03 13:44] VITALS: BP 144/75; PULSE 62; RESP 16; TEMP 36.3; O2SAT 100
--- NOTE | 2025-03-03 13:52 | W.ANESPOSTOP ---
Postoperative Evaluation Date, Time and Location Date Performed: 03/03/25 Time Performed: 13:53 Patient Location: Day Surgery Unit Vital Signs Most Recent Imported Vital Signs: Most Recent Vital Signs Temp Pulse Resp BP Pulse Ox 36.3 C L 62 16 144/75 H 100 03/03/25 13:44 03/03/25 13:44 03/03/25 13:44 03/03/25 13:44 03/03/25 13:44 Pain Score Most Recent Pain Score: Most Recent Pain Score Pain Level 0 03/03/25 13:44 Assessment Mental Status: Awake (Alert & Oriented to Patient Baseline) Airway and Respiratory Function: Patent airway with normal (patient baseline) respiratory exam Cardiovascular Function: Hemodynamically Stable Hydration Status: Adequately Hydrated Nausea & Vomiting: No Nausea or Vomiting Pain: Pt. Denies Any Pain Peripheral Nerve Block: Patient did not receive a nerve block
[2025-03-03 14:11] VITALS: BP 158/74; PULSE 52; RESP 16; TEMP 36.4; O2SAT 100
== END 2025-03-03 14:16 | disposition home or self-care (01) ==
PROVIDERS: PCP Nurse Practitioner Family; Visit Provider Surgery
PROC: 0DJ68ZZ Inspection of Stomach, Via Natural or Artificial Opening Endoscopic (ICD-10-PCS; CPT 43235; principal; 2025-03-03 13:30)
DX: K29.70 Gastritis, unspecified, without bleeding (principal); K21.9 Gastro-esophageal reflux disease without esophagitis; R13.10 Dysphagia, unspecified; K22.89 Other specified disease of esophagus
CPT/HCPCS: 43239; 88305; J2003; J2704

== ENCOUNTER 2025-03-14 15:25 | Outpatient (CLI) | payer MEDICARE, SELFPAY ==
--- NOTE | 2025-03-14 14:37 | DI.RAD_ITS ---
Exam(s) XR KNEE LT 1V XR STANDING ALIGNMENT EXAM: XR STANDING ALIGNMENT and XR knee LT 1 V CLINICAL HISTORY: PRE OP L TKA. TECHNIQUE: 2D digital imaging was performed. Five images were obtained. COMPARISON: CR XR HIP RT COMPLETE AP PELVIS from 12/26/2022 CR,XR XR KNEE LT 3V AP,LAT,DWAYNE from 05/01/2024 FINDINGS: BONES: There are stable findings of a right total hip arthroplasty. In the left knee, there is asymmetric narrowing and mild spurring in the lateral femoral tibial joint. There is an enthesophyte at the posterior calcaneus. There is a small joint effusion. The right knee is well maintained. The ankles are well maintained.There is no significant leg length discrepancy. SOFT TISSUE: Normal. IMPRESSION: Degenerative changes seen in the left knee. DATA REPOSITORY: RADIATION DOSE DELIVERED:
== END 2025-03-14 15:26 | disposition home or self-care (01) ==
LOC: DIORS 15:26
PROVIDERS: PCP Nurse Practitioner Family; Visit Provider Physician Assistant
DX: Z01.818 Encounter for other preprocedural examination (principal); M17.12 Unilateral primary osteoarthritis, left knee
CPT/HCPCS: 99024; 73560; 77073

== ENCOUNTER 2025-03-14 20:12 | Outpatient (REF) | payer MEDICARE, SELFPAY ==
[2025-03-14 16:46] LABS: HCT 52.8 % (36.0-46.0); HGB 17.1 g/dL (11.2-15.7); MCH 28.5 pg (27.0-33.0); MCHC 32.4 % (32.0-36.0); MCV 88 fL (80-95); MPV 11.3 fL (8.0-11.0); Platelet Count 249 10^3/uL (130-400); RBC 6.01 10^6/uL (3.93-5.22); RDW 12.7 % (11.7-14.6); RDW-SD 40.8 fL; WBC 7.70 10^3/uL (4.4-10.8)
[2025-03-14 17:03] LABS: Anion Gap 6.9 mmol/L (3-11); BUN 12 mg/dL (9-23); CO2 30.1 mmol/L (20.0-31.0); Calcium 10.2 mg/dL (8.3-10.6); Chloride 105 mmol/L (98-107); Glucose 90 mg/dL (74-106); Potassium 4.6 mmol/L (3.5-5.1); Sodium 142 mmol/L (136-145)
== END 2025-03-14 20:13 | disposition home or self-care (01) ==
LOC: LBN 20:12
PROVIDERS: PCP Nurse Practitioner Family; Visit Provider Student in an Organized Health Care Education/Training Program
DX: Z01.818 Encounter for other preprocedural examination (principal); M17.12 Unilateral primary osteoarthritis, left knee
CPT/HCPCS: 80048; 85027

== ENCOUNTER 2025-03-21 08:23 | Day surgery (SDC) | payer MEDICARE, SELFPAY ==
[2025-03-21] VITALS (19 sets, daily range): BP systolic 130–158; BP diastolic 45–92; PULSE 56–69; RESP 10–25; TEMP 36.1–37.3; O2SAT 95–100; BMI 25.0
--- NOTE | 2025-03-21 07:05 | W.PM.DSUDISC ---
Date of service: 03/21/25 Discharge Plan Disposition Patient Disposition: Home Condition: Good Discharge Details Reason For Visit: Left knee DJD Attending Provider: Anjel Adrian Primary Care Provider: Wendy Cook Home Meds and New Rx's Prescriptions: New acetaminophen 500 mg tablet 1,000 mg PO Q8H PRN Qty: 90 0RF Rx Instructions: Take two tablets up to every 8 hours as needed for pain aspirin 81 mg tablet,delayed release (DR/EC) 81 mg PO BID 30 Days Qty: 60 0RF celecoxib [Celebrex] 200 mg capsule 200 mg PO BID PRNQty: 60 0RF Rx Instructions: Take one tablet twice daily for pain and inflammation docusate sodium [Colace] 100 mg capsule 100 mg PO BID Qty: 28 0RF hydromorphone 2 mg tablet 2 mg PO Q4H PRNQty: 15 0RF Rx Instructions: Take one tablet up to every 4 hours as needed for severe postoperative pain dexamethasone 4 mg tablet 4 mg PO DAILY Qty: 2 0RF Rx Instructions: Take one tablet once daily for two days gabapentin 300 mg capsule 300 mg PO QHS Qty: 14 0RF Rx Instructions: Take one tablet at bedtime Continued multivitamin [Daily Multi-Vitamin] 1 EACH tablet 1 ea PO HS FISH OIL 1 tab PO HS omeprazole 20 MG capsule,delayed release(DR/EC) 20 mg PO HS diclofenac sodium 1 % gel 2 g topical QID Qty: 100 0RF Rx Instructions: apply to single elbow, knee, wrist or hand; for hand includes palm/fingers/back of hand Discontinued aspirin 81 mg tablet,delayed release (DR/EC) 81 mg PO DAILY acetaminophen 500 mg tablet 1,000 mg PO TID Qty: 90 0RF ibuprofen 600 mg tablet 600 mg PO TID PRN (Reason: pain) Qty: 90 0RF Discharge Instructions Additional Instructions: Total Knee Discharge Instructions Activity: The most important activity is to walk and to work on gentle motion (both flexion and extension). You should try to take short walks a few times a day. It is important that when resting you work on keeping the knee straight. Avoid putting a pillow behind the knee as this will encourage flexion. Work on range of motion exercises as provided by Physical Therapy. - Start outpatient physical therapy within 2 weeks. - You should wear the LILIA hose on both legs for 2 weeks. You may remove these at night. You may also use any compression sock in place of the LILIA hose. - Utilize [employer] to review exercises, see videos on exercises and obtain basic information pertaining to your surgery and your recovery. Dressing: Remove the Drew wrap by 2 days after your surgery and put on the LILIA stocking given to you from the hospital. Keep the surgical dressing (underneath the DREW wrap) in place for at least one week. After the first week it may be removed and replaced with light gauze and tape or nothing. The wound and dressing may get wet after 3 days but avoid soaking the dressing or otherwise it will need to be changed. Many people prefer covering the dressing with cling wrap (saran wrap) to minimize it from getting soaked. If it gets wet, just pat dry. If it starts to peel off then it will need to be changed. Medications: - You should take Tylenol and anti-inflammatory Celebrex as your primary pain control medications. If the Celebrex is too expensive or not covered, please call the office for another alternative (Advil/Ibuprofen or Naproxen/Aleve) - You have been prescribed a stronger pain medication Hydromorphone for breakthrough pain, take as needed as prescribed. - You take a stomach acid reduction agent Omeprazole at baseline - continue with this medication to help reduce stomach acid and reflux. - You have been prescribed Gabapentin to take at night for restlessness and nerve pain. - You will be taking Aspirin 81mg twice a day for DVT prevention unless instructed otherwise. - You have also been prescribed Decadron to take to control post-operative nausea and pain. You will start this tomorrow. - If you have constipation you should take Colace (which has been prescribed) or Miralax (which is available [id number]). It takes most people 3-4 days to have a bowel movement. Follow-up: 2 weeks If you have any acute concerns or questions, please do not hesitate to contact the office at [phone]. You may contact Dr. Adrian with any questions after hours through the hospital at [phone] or on his cell phone at [phone]. Stand Alone Forms: Portal Information Referrals: Anjel Adrian MD [ [facility] STAFF PHYSICIAN, Orthopaedic Surgical] Equipment/Supplies: Walker Activity:: Elevate Remove Dressings/Wound Care:: Do Not Remove Shower/Bathe:: Cover Diet:: As Tolerated Discharge Orders Discharge Orders: Discharge Order (Routine); Ordered 03/21/25 Ordered By: Jerrica Jones
--- NOTE | 2025-03-21 08:23 | W.ANESPRE ---
General Info Date of Service Date Performed: 03/21/25 Height: 5 ft 7 in Weight: 72.575 kg Body Mass Index (BMI): 25.0 Surgical Procedure: Operation Date: 03/21/25 10:40 Proposed Procedure Side Surgeon p Knee Total Arthroplasty Left Anjel Adrian MD Actual Procedure Side Surgeon p Knee Total Arthroplasty Left Anjel Adrian MD Meds Allergies and Home Medications Allergies Allergy/AdvReac Type Severity Reaction Status Date / Time oxycodone (From Percocet) Allergy Intermediate Nausea Verified 03/21/25 08:51 tramadol AdvReac Severe Nausea Verified 03/21/25 08:51 cyclobenzaprine AdvReac Intermediate excessive Verified 03/21/25 08:51 sedatio Home Medication ?Medication ?Instructions ?Recorded omeprazole 20 mg capsule,delayed 20 mg PO HS 08/19/12 release Fish Oil 1 tab PO HS 05/18/14 multivitamin (Daily Multi-Vitamin 1 ea PO HS 05/18/14 tablet) diclofenac sodium 1 % topical gel 2 g topical QID #100 grams 05/01/24 acetaminophen 500 mg tablet 1,000 mg (2 x 500 mg) PO Q8H PRN 03/21/25 pain #90 tabs aspirin 81 mg tablet,delayed 81 mg PO BID 30 days #60 tabs 03/21/25 release celecoxib 200 mg capsule (Celebrex) 200 mg PO BID PRN #60 caps 03/21/25 dexamethasone 4 mg tablet 4 mg PO DAILY #2 tabs 03/21/25 docusate sodium 100 mg capsule 100 mg PO BID #28 caps 03/21/25 (Colace) gabapentin 300 mg capsule 300 mg PO QHS #14 caps 03/21/25 hydromorphone 2 mg tablet 2 mg PO Q4H PRN #15 tabs 03/21/25 Current Visit Medications: Current Medications Generic Name Dose Route Start Last Admin Trade Name Freq PRN Reason Stop Dose Admin Acetaminophen 1,000 mg 03/21/25 06:00 Acetaminophen 500 Mg Tab PO 04/19/25 23:59 PREOP ELHAM Celecoxib 400 mg 03/21/25 06:00 Celecoxib 200 Mg Cap PO 04/19/25 23:59 PREOP ELHAM Gabapentin 300 mg 03/21/25 06:00 Gabapentin 300 Mg Cap PO 04/19/25 23:59 PREOP ELHAM Hydromorphone HCl 0.5 mg 03/21/25 07:04 Hydromorphone 2 Mg/Ml Syr IVP 04/20/25 07:03 Q2H PRN PRN Hydromorphone HCl 0 mg 03/21/25 07:04 Hydromorphone 2 Mg Tab PO 04/20/25 07:03 Q3H PRN PRN Pain Ringer's Solution 1,000 mls @ 80 mls/hr 03/21/25 06:00 IV 04/19/25 23:59 INFUSION ELHAM Cefazolin Sodium/Dextrose 2 gm in 50 mls @ 100 mls/hr 03/21/25 06:00 Ancef Duplex IVPB 04/19/25 23:59 PREOP ELHAM Tranexamic Acid/Sodium Chloride 1,000 mg in 100 mls @ 600 mls/hr 03/21/25 06:00 IVPB 04/19/25 23:59 PREOP ELHAM Cefazolin Sodium/Dextrose 1 gm in 50 mls @ 100 mls/hr 03/21/25 08:00 Ancef Duplex IVPB 03/22/25 00:29 Q8H ELHAM Sodium Chloride 0 ml 03/21/25 06:00 Normal Saline Flush 10 Ml Syr IV 04/19/25 23:59 PRN PRN Sodium Chloride 0 ml 03/21/25 06:00 Normal Saline 10 Ml Vial IJ 04/19/25 23:59 DIRECTED PRN Sterile Water 0 ml 03/21/25 06:00 Water,Injection,Sterile 10 Ml Vial IJ 04/19/25 23:59 DIRECTED PRN Tranexamic Acid 1,300 mg 03/21/25 07:04 Tranexamic Acid 650 Mg Tab PO 04/20/25 07:03 ONCE PRN postoperative PFSH Active Problems Active Problems: Problem Status Onset Code History of total left knee replacement Acute 03/21/25 Z96.652 Injury of left ankle Acute S99.912A Gastritis Acute K29.70 Acute lateral meniscus tear of left knee Acute S83.282A Trochanteric bursitis, right hip Acute M70.61 Iliopsoas bursitis of right hip Acute M70.71 Pain in hip region after total hip replacement Acute T84.84XA, Z96.649 Arthritis of carpometacarpal (CMC) joint of left thumb Acute M18.12 Arthritis of carpometacarpal (CMC) joint of right thumb Acute M18.11 SI joint arthritis Acute M47.818 Abdominal pain, RUQ Acute R10.11 Tinnitus Acute 06/27/13 H93.19 Sensory hearing loss, bilateral Acute 06/27/13 H90.3 Injury of head Acute 06/27/13 S09.90XA Disequilibrium syndrome Acute 06/27/13 E87.8 Umbilical hernia Acute K42.9 S/P ventral herniorrhaphy Acute ~06/02/18 Z98.890, Z87.19 Umbilical hernia without obstruction and without gangrene Resolved K42.9 Nailbed laceration, finger Acute Open fracture of phalanx of left middle finger Acute S62.603B Screening for colon cancer Acute Z12.11 Family history of colon cancer Acute Z80.0 Stress at home Acute F43.9 Rib pain on left side Acute R07.81 Anxiety Chronic F41.9 Lumbago Acute M54.5 Chronic pain Chronic G89.29 Anemia Chronic D64.9 Family history of breast cancer Acute Z80.3 Depression Chronic F32.9 Reflux esophagitis Acute K21.00 Hyperlipidemia Acute E78.5 Osteoarthritis of right hip Acute M16.11 Medical History Medical History (Updated 03/21/25 @ 08:20 by Lizette Rios RN) Traumatic arthritis of right hip GERD (gastroesophageal reflux disease) Surgical History Surgical History (Updated 03/21/25 @ 08:20 by Lizette Rios RN) History of total right hip replacement (03/12/21) Hx of shoulder surgery RTCR 08/2016 Ligation of fallopian tube Endometrial Ablation EGD - MAC (~03/03/25) Dilation and curettage Colonoscopy - MAC (~2014) Cholecystectomy Tobacco Smoking/Tobacco Use Status: Never Passive smoking exposure: Yes Alcohol Alcohol Intake: never Substance Use Substance use: Never Substance use type: does not use Vital Signs and Lab Results Lab Results Complete Blood Count: WBC, (4.4-10.8) 7.70 10^3/uL 03/14/25, 14:30 RBC, (3.93-5.22) 6.01 10^6/uL H 03/14/25, 14:30 Hgb, (11.2-15.7) 17.1 g/dL H 03/14/25, 14:30 Hct, (36.0-46.0) 52.8 % H 03/14/25, 14:30 Plt Count, (130-400) 249 10^3/uL 03/14/25, 14:30 Complete Metabolic Panel: Sodium, (136-145) 142 mmol/L 03/14/25, 14:30 Potassium, (3.5-5.1) 4.6 mmol/L 03/14/25, 14:30 Chloride, (98-107) 105 mmol/L 03/14/25, 14:30 Carbon Dioxide, (20.0-31.0) 30.1 mmol/L 03/14/25, 14:30 BUN, (9-23) 12 mg/dL 03/14/25, 14:30 Creatinine, (0.55-1.02) 0.94 mg/dL 03/14/25, 14:30 Est GFR (CKD-EPI 2020), (mL/min/1.73m2) 59.31 03/14/25, :30 Calcium, (8.3-10.6) 10.2 mg/dL 03/14/25, 14:30 Glucose, (74-106) 90 mg/dL 03/14/25, 14:30 Imaging and Studies Imaging and Studies Study information below may be from another EMR and interpreted by another provider. Please see original notes in EMR for more complete details. EKG Summary: 06/04/20 Conclusion Sinus rhythm...normal P axis, V-rate 60- 99 Atrial premature complex...SV complex w/ short R-R interval I have reviewed and interpreted ECG and agree with software generated interpretation. Stress Test Summary: 06/07/20 Stress ECG Conclusion 1. The resting electrocardiogram was within normal limits. The patient exercised on the Gunner protocol and completed a workload of 10.31 METS, stopping due to fatigue 2. Normal heart rate and blood pressure response to exercise. The patient achieved 100% of predicted heart rate for age 3. At peak exercise there was J-point depression and upsloping ST segments notably in the anterolateral leads. These did not meet criteria for myocardial ischemia 4. Occasional ventricular ectopic beats were noted Schaefer Treadmill Score is 8.2 which is Low risk. Anesthesia Assessment and Plan Anesthesia History Personal History: No History of Anesthesia Complications Family History: No Family History of Anesthesia Complications Exercise Tolerance Exercise Tolerance: Metabolic Equivalents>4 Pertinent Negatives Pertinent Negatives: No Symptoms of GERD, No Major Cardiovascular Symptoms or Complaints, No Major Pulmonary Symptoms or Complaints and No History of CVA/TIA Cardiac & Pulmonary Exam Cardiac Exam: Normal S1/S2 Heart Sounds Pulmonary Exam: Clear Bilateral Breath Sounds Implantable Cardiac Device Does patient have a Pacemaker or an ICD?: No Airway Exam Known Difficult Airway: No Mallampati Class: 2 Mouth Opening: Normal (> 3cm) Thyromental Distance: Less than 3 cm Neck Range of Motion: Full ROM Neck Circumference: Normal Teeth Condition: Normal Dentition and Loose or Chipped (Broken tooth top right#15) Airway Comments: Top left crown ASA Classification ASA Score: ASA 2 Emergency Case?: No NPO Status NPO Status: NPO Clears >2 hours, Solids >8 hours Anesthesia Plan Resuscitation Status: Full Code Anesthesia Technique: Spinal Anesthesia Airway Planned: Natural Airway Pain Management: Surgeon and patient request nerve block Monitors Used: Standard Monitors
[2025-03-21] MEDS: Celecoxib 200 MG CAP 400 MG PO (09:00)
[2025-03-21] MEDS: Gabapentin 300 MG CAP PO (09:00)
[2025-03-21] MEDS: Acetaminophen 500 MG TAB 1000 MG PO (09:01)
[2025-03-21] MEDS: Lactated Ringers 1,000 ML 80 ML IV (09:07)
[2025-03-21] MEDS: ceFAZolin 1 GM/50 ML BAG IVPB (10:05)
--- NOTE | 2025-03-21 10:13 | ROE_ITS ---
Operative Note Operative Note PRE-OP DIAGNOSIS: Left Knee Osteoarthritis POST-OP DIAGNOSIS: same PROCEDURE: Left Total Knee Replacement SURGEON: Anjel Adrian JEWELRY CUTTER: Jerrica Jones ANESTHESIA TYPE: Spinal Refer to Anesthesia Record ESTIMATED BLOOD LOSS: 100 PATHOLOGY: none sent TOURNIQUET TIME: 0 COMPLICATIONS: None Patient was transported to: PACU Patient's condition: stable Implants: 1. Depuy Attune Cementless Cruciate Retaining Femoral Component, Size 5 2. Depuy Attune Cementless Fixed Bearing Tibial Component, Size 5 3. Depuy Attune 5x6mm CR/FB Poly 4. Depuy Attune Patellar Component, Size 35mm Indications: I have seen Anette in clinic for symptoms of knee arthritis, confirmed with radiographic findings. She has exhausted nonoperative methods and was having significant limitations in daily function and desired better function and less pain. I discussed the technical details of a knee replacement. I explained the risks of the procedure to include, but not limited to, bleeding, infection, pain, stiffness, fracture, damage to nerves and vessels, damage to muscles and tendons, loosening, need for repeat procedure, blood clot and cardiopulmonary demise. Despite these risks, Anette elected to proceed. Findings: There was significant signs of arthritis within the trochlea, medial femur, and apex of the patella. There was a complex tear of the lateral meniscus extending towards the root. Procedure Description: Anette was greeted in the preoperative holding area where the correct side was identified and marked. The consent was reviewed with the patient and signed. The history and physical was updated. All questions were answered. Preoperative medications were administered: Acetaminophen 1000mg, Celebrex 400mg, and Gabapentin 300mg. An adductor canal block was then administered by the anesthesia team in the DSU. Anette was taken back to the operating room. A spinal anesthestic was then administered. The patient was placed into the supine position on the operating room table. Posts were placed for positioning during the procedure. All bony prominences were well padded. Prophylactic antibiotics in the form of Cefazolin were administered. 1g of Tranxemic Acid was given intravenously within 30 minutes of incision. The left leg was then prepped with Chloraprep and draped in a standard fashion with impervious stockinette. A second prep with Chloraprep was performed prior to application of Iodine impregnated skin protection. A timeout to confirm correct identity, side and site, procedure, allergies, anesthesia, and medical concerns was performed. With the knee in some flexion, a midline incision was made overlying the knee. Full thickness skin flaps were raised once the extensor mechanism was encountered. These were raised medially and laterally. Any bleeding was controlled with electrocautery. Once the extensor mechanism was fully exposed, a medial parapatellar arthrotomy was performed in a flexed position. All bleeding from the arthrotomy and the geniculate arteries was coagulated. A medial subperiosteal peel was performed with electrocautery to the midcoronal plane. The fat pad was removed while keeping the patellar tendon protected. The anterior distal femur synovium was removed for later visualization. The ACL and PCL were resected and the anterior horn of the lateral meniscus was transected. The knee was then flexed with the patella everted. Using a step drill, and based on preoperative templating, the femoral canal was entered. This was done with a step drill without any difficulty. The intramedullary distal femoral cut guide was inserted, set to a 6 degree valgus cut and 9mm cut thickness. The distal femoral cut guide was then held in position and pinned. With the soft tissues protected, the distal cut was performed. This was passed over a few times to ensure a planar cut. I then turned attention to the tibia. The extramedullary guide was placed onto the leg. The distal aspect was slid medial to adjust for position of center of ankle and stay in line with shaft of the tibia. Approximately 5 degrees of posterior slope was kept in the proximal cutting guide. The center of the guide was aligned with the PCL. The stylus was used to assess cut thickness. The medial side was set for a 6 mm cut which corresponded to 8 mm laterally.. This was then held in position and pinned into place with 2 additional pins and a cross pin for stability. The medial and lateral collateral ligaments were protected and the cut was performed. With this completed, it was assessed and noted to be of appropriate dimensions. The guide was removed. A spacer block was inserted and the knee was brought into extension. The 6mm spacer block provided full extension, without hyperextension and with stability of both the medial and lateral collateral ligaments was assessed. The pins from the femur and the tibia were then removed. The distal femur was then sized. The anterior stylus was placed onto the lat eral ridge of the anterior femur. This indicated a size 5 femur. The external rotation of the guide was adjusted to 0 degrees to match the epicondylar axis, perpendicular to [place]?s line. The 4-in-1 cutting guide was the placed. The posterior medial femur cut was evaluated and appeared of good thickness. The spacer block was inserted underneath the cutting guide and stability was confirmed in 90 degrees of flexion. An spencer wing was used to confirm appropriate position of the anterior cut to avoid notching. This cutting guide was ensured to be flush on the cut surface and then pinned into place with headed pins. While protecting the soft tissues, quad tendon, and collateral ligaments, the anterior and posterior cuts were performed with a saw. The central two pins were removed and the posterior and anterior chamfers were cut next. The notch-cutting guide was placed. This was pinned to lateralize the femoral component as much as possible while keeping it flush on the cut surface. This was then pinned into position. A reciprocating saw was used to make the notch cut. A rasp smoothed the cut surfaces. The medial and lateral menisci were removed. A trial femoral component was then inserted, impacted down to the cut surfaces, and the lug holes were drilled. A provisional trial tibial component was placed and the knee was brought through range of motion. There was noted to be excellent extension and flexion. There was no significant instability. The patella was tracking without thumbs. A size 6mm polyethylene component provided the best range of motion and stability with less than 2mm gapping with medial and lateral stress and full extension without significant hyperextension. The tibial cut surface was fully exposed. The tibia was then sized as a 5. The tibia had been previously marked during trialing to correspond to the center of the tibial component to help with rotation. The trial was aligned to this marcelo, approximately rotated to the medial 1/3rd of the tibial tubercle. The trial was pinned into place. The tibia was prepared with a reamer and a keel punch and lug holes. The knee was then brought into extension and the patella was measured as 23mm. Using the patellar clamp and cut guide, this was resected to a flat surface with at least 13mm of thickness remaining. The size 35mm patella fit the best. This was oriented and then clamped into position. The lugs were drilled. The trial components were removed. The final components were opened on the back table. The periosteal and capsular tissues, especially posteriorly, around the knee were then systematically injected with a periarticular cocktail consisting of 246mg of Ropivacaine, 0.5mg of Epinephrine, 0.08mg of Clonidine, and 30mg of Ketorolac, diluted to 100cc. On the back table, with the implants opened. The cement was mixed. One batch of high viscosity cement was prepared with vacuum assistance. After the cement was ready a small amount was placed on the cut surface of the patella and the patellar button was clamped into position and held. The cementless knee components were placed. Starting with the tibial component, the tibia was sublu xed anteriorly and the lug holes of the component were lined up. The tibia was then impacted with an impactor and mallet until the tibial component was in contact with the tibia. Then, the femoral component was inserted. The lug holes were aligned and the component was impacted into position. The final polyethylene component was inserted. The knee was irrigated with Surgiphor Betadine solution. This was allowed to sit in the knee for 3 minutes and then it was irrigated out with saline. After the cement had finally cured, approximately 15min, the clamp was removed from the patella and the knee was taken through range of motion. The patella was tracking with a no-thumbs technique. A complete synovectomy was performed around the periphery of the patella. The capsule was then reapproximated with a No. 1 Vicryl at multiple locations. The capsule was finally closed with a No. 2 Stratafix, barbed suture. Deep tissues were then reapproximated with 0 Vicryl and 2-0 Vicryl. The skin was closed with a running 3-0 Monocryl in a subcuticular fashion. This was reinforced with skin glue. A Mepilex silver dressing was applied along with a [id number] GISELE wrap. A CryoCuff was applied. Anette was transferred to the hospital bed without difficulty an suffering no apparent complication. She has a good prognosis. Physical therapy will start today and without restrictions, weight-bearing as tolerated. Aspirin 81mg BID will be used for DVT prophylaxis. Date of Procedure: 03/21/25
[2025-03-21] MEDS: TRANEXAMIC ACID/SOD. CHL. 1,000 MG/100 ML BAG 600 MG IVPB (10:15)
--- NOTE | 2025-03-21 10:28 | W.ANESNERVE ---
Nerve Block Single Injection Procedure Date and Time Date Performed: 03/21/25 Procedure Start: 09:42 Location Where Procedure Performed Procedure Location: Day Surgery Unit Reason Performed: Postoperative Analgesia Requesting Provider: Anjel Adrian Timeout Performed Timeout Performed: Yes Monitoring Used ECG, Blood Pressure, SpO2 and See EMR for corresponding vital signs Sterility Sterility: Hand Hygiene, Surgical Cap, Surgical Mask, Sterile Gloves and Chlorhexidine Sedation Given During Procedure Sedation Given (Indicate Dose Given): Propofol IV Dose:: 10mg Patient Mental Status Patient Mental Status: Sedate with meaningful communication Nerve Block 1st Nerve Block: Laterality: Left Block Type: Adductor Canal Ultrasound Image Saved?: Yes Needle / Catheter Used: 80mm SonoPlex II Local Anesthetic Bolus (Indicate Dose Given): Bupivacaine 0.25% Dose:: 10ml, Exparel Dose:: 10ml and Lidocaine 2% Dose:: 2.5ml Additives (Indicate Dose Given): None Ultrasound: Sterile probe cover and gel used Nerve Stimulator: Supplement to Ultrasound use and No twitch or parasthesia noted < 0.5 mA Paresthesia: None Procedure Tolerated: No Complications and Patient tolerated well Procedure Outcome: Successful Procedure Comment: Anterior femoral cutaneous nerve on the way out Performed By: Alexa Hsu Supervised By: Seymour Abdul 2nd Nerve Block: Laterality: Left Block Type: Other (Anterior Femoral Cutaneous Nerve Block) Ultrasound Image Saved?: Yes Needle / Catheter Used: 80mm SonoPlex II Local Anesthetic Bolus (Indicate Dose Given): Injected in 3-5ml increments after negative blood aspiration and Bupivacaine 0.25% Dose:: 10 ml Additives (Indicate Dose Given): None Ultrasound: Sterile probe cover and gel used Nerve Stimulator: Supplement to Ultrasound use and No twitch or parasthesia noted < 0.5 mA Paresthesia: None Procedure Tolerated: No Complications and Patient tolerated well Procedure Outcome: Successful Performed By: Alexa Hsu Supervised By: Seymour Abdul
[2025-03-21] MEDS: ROPIvacaine/EPI/CLONIDINE/KET 50 ML SYRINGE IJ (10:52)
[2025-03-21] MEDS: Tranexamic Acid 650 MG TAB 1300 MG PO (12:35)
--- NOTE | 2025-03-21 13:14 | IN_ITS ---
PT Notes Visit Reasons: Left knee DJD Physical Therapy Day Surgery Initial Evaluation Date: 03/21/2025 Referring Doctor: DINA Slaughter PT Orders: PT CONSULT: 'S.P Ortho Surgery Precautions: WBAT through the L LE with AD. Patient Profile/Admitting Diagnosis: This is a 69-year-old female with degenerative joint disease of the left knee and is status post left total knee arthroplasty on postoperative day 0. PMHX: All Active Problems Injury of left ankle (Acute) Gastritis (Acute) Localized osteoarthritis of left knee (Acute) Acute lateral meniscus tear of left knee (Acute) Steroid injection: 08/22/2024 S/P arthroscopy with partial lateral meniscectomy: 07/06/2024 Trochanteric bursitis, right hip (Acute) Iliopsoas bursitis of right hip (Acute) Pain in hip region after total hip replacement (Acute) Arthritis of carpometacarpal (CMC) joint of left thumb (Acute) Arthritis of carpometacarpal (CMC) joint of right thumb (Acute) SI joint arthritis (Acute) Abdominal pain, RUQ (Acute) Tinnitus (Acute 06/27/13) Sensory hearing loss, bilateral (Acute 06/27/13) Injury of head (Acute 06/27/13) Disequilibrium syndrome (Acute 06/27/13) Umbilical hernia (Acute) S/P ventral herniorrhaphy (Acute ~06/02/18) umbilical hernia repairNailbed laceration, finger (Acute) S/P repair: 04/03/2020 Open fracture of phalanx of left middle finger (Acute) Screening for colon cancer (Acute) Family history of colon cancer (Acute) Stress at home (Acute) Rib pain on left side (Acute) Anxiety (Chronic) Lumbago (Acute) Chronic pain (Chronic) Anemia (Chronic) Family history of breast cancer (Acute) Depression (Chronic) Reflux esophagitis (Acute) Hyperlipidemia (Acute) Osteoarthritis of right hip (Acute) Medical History Traumatic arthritis of right hip GERD (gastroesophageal reflux disease) Surgical History (Updated 03/07/25 @ 08:21 by Marci Del Real) History of total right hip replacement (03/12/21) Hx of shoulder surgery RTCR 08/2016Ligation of fallopian tube Endometrial Ablation EGD - MAC (~03/03/25) Dilation and curettage Colonoscopy - MAC (~2014) Cholecystectomy Social History/Home Situation: Patient [place] in a [place] with in a private home and one step to enter. Independent with all aspects of ADLs prior to surgery. Equipment Owned/DME: [facility] Subjective: Anette reported pain in the L knee at 9/10 at rest which went down to 4-5/10 with movement. Objective: General Observation: GISELE wraps to L LE. Cryocuff to L knee. Mental Status: A and O x 4 Pain: 9/10 at rest and 4-5/10 with mobility ROM: Right Lower Extremity: Hip flexion WFL. Hip abduction WFL. Knee flexion WFL. Ankle dorsiflexion WFL. Ankle plantarflexion WFL. Left Lower Extremity: Hip flexion WFL. Hip abduction WFL. Knee flexion 10 degrees to 100 degrees. Knee extension -10 degrees. Ankle dorsiflexion WFL. Ankle plantarflexion WFL. Strength: Right Lower Extremity: Hip flexors 5/5. Hip abductors 5/5. Knee flexors 5/5. Knee extensors 5/5. Ankle dorsiflexors 5/5. Ankle plantarflexors 5/5. Left Lower Extremity:Hip flexors 4/5. Hip abductors 4/5. Knee flexors 3-/5. Knee extensors 3-/5. Ankle dorsiflexors 4/5. Ankle plantarflexors 4/5. Sensation: Intact as to pain and light pressure in B LE Bed Mobility/Transfers: Minimal cueing provided for use of B hands as needed for support, movement sequence, AD management, and posture to reduce fall risk and minimize pain report Supine to sit stand by assist Sit to stand contact guard assist with FWW Stand to sit stand by assist with FWW Bed to chair stand by assist with FWW Gait: -150 feet using the front-wheeled walker with step-to gait pattern initially but patient was able demonstrate step-through gait pattern with stand by assist with report of decrease pain from 9/10 at rest to 4-5/10 in the L knee. -Denied headache, chest pain, and lightheadedness throughout session. -Moderate verbal cueing provided for limb movement sequence, AD management, and weight distribution to minimize pain report and reduce fall risk. Balance: Static Sitting: Normal Dynamic Sitting: Normal Static Standing: Fair Dynamic Standing: Fair Special Tests: Mobility Limitations Standardized Measure [facility] AM-PAC 6 clicks Basic Mobility Inpatient Short Form: Raw Score: 23 CMS Score: 11% deficit Informed Consent/Education: Patient instructed in purpose of PT consult. Packet containing TKA exercise protocol has been given to patient. Education and training on initial set of exercises that can be done at home have been completed with patient. Trained patient with correct performance of exercises below to maximize motor control, joint flexibility, soft tissue extensibility of the [] knee musculature: Access Code: [email or web address] URL: [email or web address] Date: 03/21/2025 Prepared by: Carrol Dahl Exercises - Supine Quad Set - 1 x daily - 7 x weekly - 1 sets - 10 reps - 5 hold - Supine Heel Slide - 1 x daily - 7 x weekly - 1 sets - 10 reps - 5 hold - Supine Ankle Pumps - 1 x daily - 7 x weekly - 1 sets - 10 reps - 5 hold - Small Range Straight Leg Raise - 1 x daily - 7 x weekly - 1 sets - 10 reps - 5 hold - Seated March - 1 x daily - 7 x weekly - 1 sets - 10 reps - 5 hold Assessment: Anette required the use of a front-wheeled walker for mobility ADL performance to maximize independence and reduce fall risk. Patient presents with clinical signs and symptoms consistent with current/admitting diagnoses that have resulted to mobility limitations, gait instability, generalized weakness, and impairment of motor control as demonstrated by the following impairment level findings: 1. Decreased strength to left knee major muscle groups 2. Impaired standing balance 3. Limitation of joint range of motion in left knee Impairments are contributing to the following functional limitations: 1. Inability to safely ambulate without assistive device 2. Increase completion time for mobility ADL performance 3. Increased fall risk Patient is assessed as a 68410 moderate complexity based on the following: History: 69-year-old female with impairment level findings, functional limitations, and past medical history as indicated above Examination: Demonstrable impairment in strength, balance, and mobility level with underlying impairments and functional limitations as documented above Presentation: Evolving Decision Makin moderate complexity Goals: N/A. PT evaluation and 1-2 treatment sessions only for functional mobility training using recommended AD and for HEP instruction. Plan of Care/Treatment Plan: N/A. PT evaluation and 1-2 treatment session only for functional mobility training using recommended AD and for HEP instruction. DISCHARGE RECOMMENDATIONS: Home when medically cleared by orthopedic surgeon. Recommend outpatient PT services in order to optimize functional mobility outcomes and facilitate return to independent community ambulation without an assistive device. TREATMENT CODE/TIME: 67248 x 20 minutes for 1 unit, 94452 x 13 minutes for 1 unit (13:14-13:47). Thank you for the opportunity to participate in the care of this patient. Carrol Dahl PT, DPT, CLT [facility] [place], [place]
[2025-03-21] MEDS: HYDROmorphone 2 MG TAB PO (13:24)
--- NOTE | 2025-03-21 15:22 | W.ANESPOSTOP ---
Postoperative Evaluation Date, Time and Location Date Performed: 03/21/25 Time Performed: 15:22 Patient Location: Day Surgery Unit Vital Signs Most Recent Imported Vital Signs: Most Recent Vital Signs Temp Pulse Resp BP Pulse Ox 36.1 C L 60 13 158/59 H 99 03/21/25 12:36 03/21/25 12:36 03/21/25 12:36 03/21/25 12:36 03/21/25 12:36 Pain Score Most Recent Pain Score: Most Recent Pain Score Pain Level 0 03/21/25 12:36 Assessment Mental Status: Awake (Alert & Oriented to Patient Baseline) Airway and Respiratory Function: Patent airway with normal (patient baseline) respiratory exam Cardiovascular Function: Hemodynamically Stable Hydration Status: Adequately Hydrated Nausea & Vomiting: No Nausea or Vomiting Pain: Pain is tolerable per patient Peripheral Nerve Block: Regional nerve block not resolved at time of post operative discharge
== END 2025-03-21 15:15 | disposition home or self-care (01) ==
LOC: SUR 08:24
PROVIDERS: PCP Nurse Practitioner Family; Visit Provider Student in an Organized Health Care Education/Training Program
PROC: (CPT 27447; principal; 2025-03-21 10:30)
DX: M17.12 Unilateral primary osteoarthritis, left knee (principal); G89.18 Other acute postprocedural pain
CPT/HCPCS: 27447; 64447; 64450; 97162; 97530; C1776; J0665; J0666; J0690; J1100; J2003; J2401; J2405; J2704; J3475

== ENCOUNTER → 2025-04-03 00:35 | Outpatient (CLI) | payer MEDICARE, SELFPAY ==
--- NOTE | 2025-04-03 | DI.MAMMO_ITS ---
Exam(s) MAMMO SCREENING EXAM: MAMMO SCREENING CLINICAL HISTORY: SCREENING MAMMO Z12.31. TECHNIQUE: Bilateral full field digital CC and MLO mammographic images were obtained with 3D tomosynthesis and utilizing computer aided detection (CAD). COMPARISON: Prior mammograms were reviewed. FINDINGS: There has been no significant change in the appearance and distribution of the fibroglandular tissue. There are no new spiculated masses nor malignant appearing microcalcification groups. There is no significant architectural distortion nor skin thickening-retraction. IMPRESSION: No radiographic evidence of malignancy. BI-RADS Category 1 - Negative Breast Density - Category B - There are scattered areas of fibroglandular density. Breast density Category C or D implies that the patient has dense breast tissue. Dense breast tissue can make it harder to find cancer on a mammogram. Dense breast tissue is also associated with an increased risk of breast cancer. This information about the result of the mammogram report was provided to the patient to raise their awareness. Use this report when you speak with the patient about their risks for breast cancer, which includes their family history. At that time, you may recommend additional screening tests (Ultrasound or MRI) as these tests may add significant information. A negative radiographic report should not delay biopsy if a dominant or clinically suspicious mass is present. Up to ten percent of cancers are not identified on mammography. A negative report may reinforce clinical impression. Adenosis and dense breasts may obscure an underlying neoplasm. False positive reports average 6 to 10%. Patient will receive a letter notifying them of these results.
== END ==
LOC: DI 00:35
PROVIDERS: PCP Nurse Practitioner Family; Visit Provider Nurse Practitioner Family
DX: Z12.31 Encounter for screening mammogram for malignant neoplasm of breast (principal); R92.323 Mammographic fibroglandular density, bilateral breasts
CPT/HCPCS: 77063; 77067

== ENCOUNTER 2025-04-03 15:13 | Outpatient (CLI) | payer MEDICARE, SELFPAY ==
--- NOTE | 2025-04-03 13:00 | DI.RAD_ITS ---
Exam(s) XR KNEE LT 1V XR STANDING ALIGNMENT EXAM: XR STANDING ALIGNMENT and XR knee LT 1 V CLINICAL HISTORY: 1ST POST OP S/P L TKA. TECHNIQUE: 2D digital imaging was performed. Five images were obtained. COMPARISON: CR XR KNEE LT 1V from 03/14/2025 CR XR STANDING ALIGNMENT from 03/14/2025 FINDINGS: BONES: There is again seen a right total hip arthroplasty which appears unremarkable. The right knee is well maintained. There has been interval placement of a left total knee arthroplasty. There are no suspicious lucencies around the hardware to suggest loosening. The ankles are well maintained.There is less than a 1 cm discrepancy in the leg length. SOFT TISSUE: Normal. IMPRESSION: Unremarkable left total knee arthroplasty. DATA REPOSITORY: RADIATION DOSE DELIVERED:
== END 2025-04-03 15:14 | disposition home or self-care (01) ==
LOC: DIORS 15:13
PROVIDERS: PCP Nurse Practitioner Family; Visit Provider Physician Assistant
DX: Z47.1 Aftercare following joint replacement surgery (principal); Z96.652 Presence of left artificial knee joint
CPT/HCPCS: 99024; 73560; 77073